=== PATIENT | female | born 1990 | race Caucasian/White ===

== ENCOUNTER → 2018-04-16 14:09 | Outpatient (CLI) | payer OTHER, SELFPAY ==
[2018-04-16 12:11] VITALS: BMI 27.3
[2018-04-16 14:26] LABS: Red Blood Cells-Urine 0 SEEN /hpf (0-5)
[2018-04-16 14:50] LABS: Color, Urine Yellow (Yellow); Glucose, Dipstick Normal (Normal); Ketone-Dipstick 5 mg/dl (Negative); Protein-Dipstick 15 mg/dl (Negative); Urine Clarity Cloudy (Clear)
[2018-04-16 14:51] LABS: Leukocyte Esterase-Dipstick 25 /ul (Negative); Nitrite-Dipstick Negative (Negative); Occult Blood-Urine Negative /ul (Negative); Urine Bilirubin Dipstick 1 mg/dL (Negative); Urine Urobilinogen Normal (Normal)
[2018-04-16 14:58] LABS: Bacteria 1+ /hpf (None Seen); Mucous, Urine 1+ /hpf (<or=2+); Squamous Epithelial Cells - UA 10-25 SEEN /hpf (5-10); White Blood Cells 0-5 SEEN /hpf (0-5)
== END ==
PROVIDERS: Family Provider Family Medicine; PCP Family Medicine; Referring Provider Physician Assistant; Visit Provider Physician Assistant
DX: R30.0 Dysuria (principal)
CPT/HCPCS: 81001; 87086; 87088

== ENCOUNTER → 2018-09-04 10:19 | Outpatient (CLI) | payer OTHER, SELFPAY ==
[2018-04-16 12:11] VITALS: BMI 27.3
[2018-09-04 12:38] LABS: Anion Gap 5 (5-15); BUN 8 mg/dL (7-18); BUN/Creat Ratio 12.5 RATIO (10-20); Calcium,Total 8.9 mg/dL (8.5-10.1); Chloride 109 mmol/L (98-107); Cholesterol 230 mg/dL (200); Creatinine, Serum 0.64 mg/dL (0.55-1.02); EST Glomerular Filtration Rate 117 mL/min (>60); Est Glom Filt Rate - Afr Amer 142 mL/min (>60); Glucose 69 mg/dL (74-106); High Density Lipoprotein 41 mg/dL; Potassium 4.3 mmol/L (3.5-5.1); Sodium Level 140 mmol/L (136-145); Thyroid Stim Hormone (TSH) 1.65 uIU/mL (0.358-3.74); Triglycerides 153 mg/dL; Very Low Density Lipoprotein 31 mg/dL (5-40)
== END ==
PROVIDERS: Family Provider Family Medicine; PCP Family Medicine; Referring Provider Family Medicine; Visit Provider Family Medicine
DX: Z00.00 Encounter for general adult medical examination without abnormal findings (principal)
CPT/HCPCS: 36415; 80048; 80061; 84443

== ENCOUNTER → 2019-01-14 16:21 | Outpatient (CLI) | payer OTHER, SELFPAY ==
[2018-04-16 12:11] VITALS: BMI 27.3
[2019-01-14 17:55] LABS: Anion Gap 9 (5-15); BUN 9 mg/dL (7-18); BUN/Creat Ratio 13.9 RATIO (10-20); Calcium,Total 8.9 mg/dL (8.5-10.1); Chloride 105 mmol/L (98-107); Cholesterol 236 mg/dL (200); Creatinine, Serum 0.65 mg/dL (0.55-1.02); EST Glomerular Filtration Rate 115 mL/min (>60); Est Glom Filt Rate - Afr Amer 139 mL/min (>60); Glucose 76 mg/dL (74-106); High Density Lipoprotein 43 mg/dL; Potassium 3.6 mmol/L (3.5-5.1); Sodium Level 138 mmol/L (136-145); Thyroid Stim Hormone (TSH) 3.53 uIU/mL (0.358-3.74); Triglycerides 140 mg/dL; Very Low Density Lipoprotein 28 mg/dL (5-40)
== END ==
PROVIDERS: Family Provider Family Medicine; PCP Family Medicine; Referring Provider Family Medicine; Visit Provider Family Medicine
DX: E78.5 Hyperlipidemia, unspecified (principal); F41.0 Panic disorder [episodic paroxysmal anxiety]
CPT/HCPCS: 36415; 80048; 80061; 84443

== ENCOUNTER → 2020-07-27 12:10 | Outpatient (CLI) | payer BC, SELFPAY ==
[2018-04-16 12:11] VITALS: BMI 27.3
--- NOTE | 2020-07-27 12:14 | RAD_ITS ---
STUDY: X-RAY - RIGHT FOOT CLINICAL: Female, 30 years old. No injury, foot pain on top and medial, also by the heel TECHNIQUE: 3 view(s) of the foot. COMPARISON: None. FINDINGS: Normal talus, calcaneus, and tarsal bones. Normal visualized subtalar, talonavicular, calcaneocuboid, tarsal and tarsometatarsal articulations. Normal metatarsi. Normal metatarsophalangeal joint of the great toe. Normal tibial and fibular sesamoid bones. Normal interphalangeal joint of the great toe. Normal phalanges of the great toe. Normal second through fifth metatarsophalangeal joints. Normal interphalangeal joints and phalanges of the lesser toes. Mild degree of dorsal soft tissue swelling. RAD/Foot min 3 Views IMPRESSION: Mild degree of dorsal soft tissue swelling. Electronically Signed: Ye Church MD at 13:14 EDT , Service support ,
== END ==
LOC: MTRAD 12:13
PROVIDERS: PCP Family Medicine; Referring Provider Family Medicine; Visit Provider Family Medicine
DX: M79.671 Pain in right foot (principal)
CPT/HCPCS: 73630

== ENCOUNTER → 2021-04-29 07:00 | Outpatient (CLI) | payer BC, SELFPAY | PROVIDERS: PCP Family Medicine; Referring Provider Family Medicine; Visit Provider Family Medicine | DX: Z20.822 Contact with and (suspected) exposure to COVID-19 (principal) | CPT/HCPCS: 87635; U0005; U0003 ==

== ENCOUNTER 2021-06-09 15:22 | Outpatient (CLI) | payer BC, SELFPAY | END 2021-06-09 23:59 | disposition short-term general hospital (02) | LOC: LABSPEC 06-10 09:33 | PROVIDERS: PCP Family Medicine; Visit Provider Family Medicine | DX: Z20.822 Contact with and (suspected) exposure to COVID-19 (principal) | CPT/HCPCS: 87635; U0003; U0005 ==

== ENCOUNTER 2021-06-28 08:49 | Outpatient (CLI) | payer BC, SELFPAY ==
[2021-06-28 12:35] LABS: Cholesterol 258 mg/dL (200); High Density Lipoprotein 44 mg/dL; Triglycerides 155 mg/dL; Very Low Density Lipoprotein 31 mg/dL (5-40)
== END 2021-06-28 23:59 | disposition home or self-care (01) ==
LOC: MFPLAB 08:50
PROVIDERS: PCP Family Medicine; Visit Provider Family Medicine
DX: E78.5 Hyperlipidemia, unspecified (principal)
CPT/HCPCS: 36415; 80061

== ENCOUNTER → 2021-10-02 | Outpatient (CLI) | payer BC, SELFPAY ==
[2021-10-02 10:46] LABS: Cholesterol 166 mg/dL (200); High Density Lipoprotein 42 mg/dL; Triglycerides 130 mg/dL; Very Low Density Lipoprotein 26 mg/dL (5-40)
== END | disposition home or self-care (01) ==
LOC: LAB 09:39
PROVIDERS: PCP Family Medicine; Visit Provider Family Medicine
DX: E78.5 Hyperlipidemia, unspecified (principal)
CPT/HCPCS: 36415; 80061

== ENCOUNTER → 2022-05-03 | Outpatient (CLI) | payer BC, SELFPAY ==
--- NOTE | 2022-05-03 11:14 | RAD_ITS ---
STUDY: X-RAY - LEFT ANKLE REASON FOR EXAM: Female, 31 years old. Pain above lateral malleolus. TECHNIQUE: 3 view(s) of the ankle. COMPARISON: None. FINDINGS: Normal visualized distal tibia and fibula. Normal medial and lateral malleoli. Normal tibiotalar articulation and ankle mortise. Normal visualized talus and calcaneus. The visualized subtalar, talonavicular, calcaneocuboid and tarsal articulations are normal. The soft tissue structures are unremarkable. RAD/Ankle min 3 Views IMPRESSION: Normal x-ray examination of the ankle. Electronically Signed: Jose Alfredo Slater, at 11:43 EST ,
== END | disposition home or self-care (01) ==
LOC: MTRAD 11:09
PROVIDERS: PCP Family Medicine; Referring Provider Family Medicine; Visit Provider Family Medicine
DX: M25.572 Pain in left ankle and joints of left foot (principal)
CPT/HCPCS: 73610

== ENCOUNTER → 2022-05-19 | Outpatient (CLI) | payer BC, SELFPAY ==
[2022-05-19 16:20] LABS: Vitamin D,25 Hydroxy 23.9 ng/mL
[2022-05-19 17:04] LABS: Anion Gap 11 (5-15); BUN 9 mg/dL (7-18); BUN/Creat Ratio 14.9 RATIO (10-20); Calcium,Total 9.2 mg/dL (8.5-10.1); Chloride 105 mmol/L (98-107); EST Glomerular Filtration Rate 122 mL/min (>60); Est Glom Filt Rate - Afr Amer 147 mL/min (>60); Glucose 72 mg/dL (74-106); Sodium Level 138 mmol/L (136-145); Thyroid Stim Hormone (TSH) 2.62 uIU/mL (0.358-3.74)
== END | disposition home or self-care (01) ==
LOC: MFPLAB 12:02
PROVIDERS: PCP Family Medicine; Visit Provider Family Medicine
DX: Z00.00 Encounter for general adult medical examination without abnormal findings (principal)
CPT/HCPCS: 36415; 80048; 82306; 84443

== ENCOUNTER → 2022-06-13 | Outpatient (CLI) | payer BC, SELFPAY ==
[2022-06-20 17:52] LABS: HPV HC, High Risk Negative
== END | disposition home or self-care (01) ==
PROVIDERS: PCP Family Medicine; Visit Provider Nurse Practitioner Family
DX: Z12.4 Encounter for screening for malignant neoplasm of cervix (principal)
CPT/HCPCS: 87624; 88175; G0145

== ENCOUNTER → 2022-08-24 | Outpatient (CLI) | payer BC, SELFPAY ==
[2022-08-24 12:32] LABS: hCG Titer Quant., Serum 491 mIU/mL (1-3)
== END | disposition home or self-care (01) ==
PROVIDERS: PCP Family Medicine; Referring Provider Obstetrics & Gynecology; Visit Provider Obstetrics & Gynecology
DX: N91.2 Amenorrhea, unspecified (principal)
CPT/HCPCS: 36415; 84702; 86850; 86900; 86901

== ENCOUNTER → 2022-08-26 | Outpatient (CLI) | payer BC, SELFPAY ==
[2022-08-26 14:13] LABS: hCG Titer Quant., Serum 709 mIU/mL (1-3)
== END | disposition home or self-care (01) ==
LOC: LAB 12:36
PROVIDERS: PCP Family Medicine; Referring Provider Obstetrics & Gynecology; Visit Provider Obstetrics & Gynecology
DX: N91.2 Amenorrhea, unspecified (principal)
CPT/HCPCS: 36415; 84702

== ENCOUNTER → 2022-08-29 | Outpatient (CLI) | payer BC, SELFPAY ==
[2022-08-29 13:18] LABS: hCG Titer Quant., Serum 1532 mIU/mL (1-3)
== END | disposition home or self-care (01) ==
LOC: LAB 12:04
PROVIDERS: PCP Family Medicine; Referring Provider Obstetrics & Gynecology; Visit Provider Obstetrics & Gynecology
DX: N91.2 Amenorrhea, unspecified (principal)
CPT/HCPCS: 36415; 84702

== ENCOUNTER → 2022-08-31 | Outpatient (CLI) | payer BC, SELFPAY ==
[2022-08-31 13:35] LABS: hCG Titer Quant., Serum 2174 mIU/mL (1-3)
== END | disposition home or self-care (01) ==
LOC: LAB 12:06
PROVIDERS: PCP Family Medicine; Referring Provider Obstetrics & Gynecology; Visit Provider Obstetrics & Gynecology
DX: O02.0 Blighted ovum and nonhydatidiform mole (principal)
CPT/HCPCS: 36415; 84702

== ENCOUNTER → 2022-09-07 | Outpatient (CLI) | payer BC, SELFPAY ==
--- NOTE | 2022-09-07 10:21 | US_ITS ---
STUDY: FIRST TRIMESTER OBSTETRICAL ULTRASOUND REASON FOR EXAM: Female, 32 years old viability LMP: July 18, 2022. TECHNIQUE: Transvaginal TECHNICAL QUALITY: Adequate. PRIOR ULTRASOUND: None. FINDINGS: There is visualization of a single gestational sac in a normal intrauterine position. The mean sac diameter (MSD) measures 1.3 cm, indicating an estimated gestational age (EGA) of 6 weeks, 1 days. The gestational sac shape is within normal limits. There is a visualized yolk sac. The yolk sac measures 3 mm. The placenta is non-visualized. There is visualization of a live embryo. The crown-rump length (CRL) measures 8 mm, indicating an estimated gestational age (EGA) of 6 weeks, 6 days. There is demonstrated cardiac activity with a heart rate of 135 bpm. The estimated gestation age (EGA) by LMP is 7 weeks, 2 days. The estimated date of delivery (ED) by LMP is April 24, 2023. The estimated gestation age (EGA) by US is 6 weeks, 4 days. The estimated date of delivery (ED) by US is April 29, 2023. The uterus measures 7.4 cm x 3.9 cm x 3.3 cm. There is no demonstrated uterine fibroid. The cervix is closed. Small amount of fluid is seen in the endometrial canal. The right ovary measures 5.1 cm x 4.7 cm x 4.8 cm. There is a 4.8 cm x 4.6 x 4.6 cm ovarian cyst. There is no visualized right adnexal mass or complex lesion. The left ovary measures 3.1 cm x 1.8 cm x 2 cm. There is no left ovarian cyst. There is no visualized left adnexal mass or complex lesion. There is no fluid in the cul de sac. US/Transvaginal w/Preg US IMPRESSION: Single live uterine gestation with a mean gestational age of 6 weeks and 4 days. Right ovarian cyst. Electronically Signed: Ye Church MD at 14:59 EDT ,
== END | disposition home or self-care (01) ==
PROVIDERS: PCP Family Medicine; Referring Provider Obstetrics & Gynecology; Visit Provider Obstetrics & Gynecology
DX: O20.0 Threatened abortion (principal)
CPT/HCPCS: 76817

== ENCOUNTER → 2022-10-04 | Outpatient (CLI) | payer BC, SELFPAY ==
[2022-10-04 13:04] LABS: Absolute Lymphocyte Count 2.61 X10^3/uL (0.83-4.51); Absolute Neutrophil Count 7.4 X10^3/uL (2.0-7.7); Basophil# 0.06 X10^3/uL; Basophil% 0.5 % (0-1); Eosinophil# 0.35 X10^3/uL; Eosinophils% 3.1 % (0-5); Lymphocyte # 2.61 X10^3/ul (0.83-4.51); Lymphocyte % 23.2 % (19-41); Mean Corp Hgb Conc 33.3 g/dL (32-36); Mean Corpuscular Hgb 29.9 pg (27.0-32.0); Mean Corpuscular Volume 89.7 fL (81-99); Mean Platelet Vol. 10.5 fl (6.2-12.0); Monocyte# 0.77 X10^3/uL; Monocyte% 6.8 % (0-10); NRBC Flagged by Analyzer 0 % (0-5); Neutrophil # 7.43 X10^3/uL (2.7-7.7); Platelet Count 333 K/mm3 (150-450); RBC Distribution Width CV 13.5 % (11.6-14.6); RBC Distribution Width SD 44.2 fl (35.1-43.9); Red Blood Count 4.35 M/mm3 (4.2-5.4); White Blood Count 11.3 K/mm3 (4.4-11.0)
[2022-10-04 13:20] LABS: NATERA MAILED SPECIMEN
[2022-10-04 14:03] LABS: HIV - WCH Non-Reactive (Nonreactive); Hepatitis B Surface Antigen Non-Reactive (Nonreactive); Hepatitis C Antibody Non-Reactive (Nonreactive); Rubella IgG Reactive (Nonreactive); Syphilis Antibodies Non-reactive
[2022-10-04 17:04] LABS: Chlamydia Trachomatis by PCR Negative (Negative); Neisserai gonorrhoeae by PCR Negative (Negative); Probe Check PASS; Sample Adequacy Control PASS; Specimen Processing Control PASS
== END | disposition home or self-care (01) ==
LOC: LAB 12:18
PROVIDERS: PCP Family Medicine; Visit Provider Advanced Practice Midwife
DX: O09.90 Supervision of high risk pregnancy, unspecified, unspecified trimester (principal); Z3A.11 11 weeks gestation of pregnancy
CPT/HCPCS: 36415; 85025; 86703; 86762; 86780; 86803; 86850; 86900; 86901; 87086; 87088; 87340; 87491; 87591

== ENCOUNTER → 2023-01-06 | Outpatient (CLI) | payer BC, SELFPAY ==
[2023-01-10 22:06] LABS: Chlamydia By Nucleic Acid AMP Negative (Negative); Gonococcus By Nucleic Acid AMP Negative (Negative)
[2023-01-13 14:09] LABS: HPV APTIMA, High Risk Negative (Negative)
== END | disposition home or self-care (01) ==
LOC: LABSPEC 17:07
PROVIDERS: Referring Provider Registered Nurse; Visit Provider Registered Nurse
DX: Z34.90 Encounter for supervision of normal pregnancy, unspecified, unspecified trimester (principal); N89.8 Other specified noninflammatory disorders of vagina
CPT/HCPCS: 87070; 87086; 87088; 87205; 87491; 87591; 87624; 88175; G0145

== ENCOUNTER → 2023-01-21 | Outpatient (CLI) | payer BC, SELFPAY ==
[2023-01-21 11:24] LABS: Absolute Lymphocyte Count 2.02 X10^3/uL (0.83-4.51); Absolute Neutrophil Count 7.8 X10^3/uL (2.0-7.7); Basophil# 0.03 X10^3/uL; Basophil% 0.3 % (0-1); Eosinophils% 1.9 % (0-5); Hematocrit 34.2 % (37-47); Hemoglobin 11.6 g/dL (12.0-15.0); Lymphocyte # 2.02 X10^3/ul (0.83-4.51); Lymphocyte % 19.1 % (19-41); Mean Corp Hgb Conc 33.9 g/dL (32-36); Mean Corpuscular Hgb 30.8 pg (27.0-32.0); Mean Corpuscular Volume 90.7 fL (81-99); Mean Platelet Vol. 10.1 fl (6.2-12.0); Monocyte# 0.47 X10^3/uL; Monocyte% 4.4 % (0-10); NRBC Flagged by Analyzer 0 % (0-5); Neutrophil # 7.82 X10^3/uL (2.7-7.7); Neutrophil % 73.9 % (47-70); Platelet Count 300 K/mm3 (150-450); RBC Distribution Width CV 14.1 % (11.6-14.6); RBC Distribution Width SD 45.8 fl (35.1-43.9); Red Blood Count 3.77 M/mm3 (4.2-5.4); White Blood Count 10.6 K/mm3 (4.4-11.0)
[2023-01-21 12:22] LABS: Glucose Challenge Gest 1H 50g 149 mg/dL (70-140)
[2023-01-23 09:22] LABS: HIV - WCH Non-Reactive (Nonreactive); Syphilis Antibodies Non-reactive
== END | disposition home or self-care (01) ==
LOC: LAB 10:37
PROVIDERS: Referring Provider Obstetrics & Gynecology; Visit Provider Obstetrics & Gynecology
DX: O09.90 Supervision of high risk pregnancy, unspecified, unspecified trimester (principal); Z13.1 Encounter for screening for diabetes mellitus; Z3A.00 Weeks of gestation of pregnancy not specified
CPT/HCPCS: 36415; 82950; 85025; 86703; 86780

== ENCOUNTER → 2023-01-30 | Outpatient (CLI) | payer BC, SELFPAY ==
[2023-01-30 07:38] LABS: Glucose GTT-Gestation. Fasting 85 mg/dL (<105)
[2023-01-30 08:27] LABS: Glucose GTT-Gestational 1 Hr 162 mg/dL (<190)
[2023-01-30 09:40] LABS: Glucose GTT-Gestational 2 Hr 142 mg/dL (<165)
[2023-01-30 11:16] LABS: Glucose GTT-Gestational 3 Hr 127 L (<145)
== END | disposition home or self-care (01) ==
LOC: LAB 06:56
PROVIDERS: PCP Family Medicine; Referring Provider Nurse Practitioner Women's Health; Visit Provider Nurse Practitioner Women's Health
DX: Z13.1 Encounter for screening for diabetes mellitus (principal)
CPT/HCPCS: 36415; 82951; 82952

== ENCOUNTER → 2023-03-24 | Outpatient (CLI) | payer BC, SELFPAY ==
--- NOTE | 2023-03-24 09:53 | US_ITS ---
STUDY: SECOND AND THIRD TRIMESTER OBSTETRICAL ULTRASOUND - LIMITED REASON FOR EXAM: Female, 32 years old Breeched fetus LMP: July 18, 2022. PRIOR ULTRASOUND: Comparison is made with prior study of September 07, 2022. TECHNIQUE: Transabdominal TECHNICAL QUALITY: Adequate. FINDINGS: There is a single intrauterine fetus. The fetus is in a breech presentation. There is demonstrated cardiac activity with a heart rate of 148 bpm. There is a normal amniotic fluid volume. The largest amniotic fluid pocket measures 4.1 cm. The amniotic fluid index (KERRI) is 10.2 cm. The placenta is anterior and lateral in location and is not low lying. There are Grade 2 placental changes. The cervix measures 3.65 cm cm in length. BIOMETRY: BPD: 8.76 cm: 35 weeks, 3 days HC: 31.43 cm: 35 weeks, 2 days AC: 29.35 cm: 33 weeks, 2 days FL: 6.73 cm: 34 weeks, 4 days Age by LMP: 34 weeks, 4 days. ED by LMP: April 24, 2023. age by prior US: 34 weeks, 4 days. ED by prior US: April 29, 2023. age by current US: 34 weeks, 5 days. ED by current US: April 30, 2023. Estimated weight: 2366 grams, +/- 354 grams, 16.3 percentile. US/OB Limited With Biometrics IMPRESSION: Single live intrauterine gestation with a mean gestational age of 34 weeks and 4 days. The measurements obtained today fall within the normal expected range. Electronically Signed: Ye Church MD at 15:20 EST ,
== END | disposition home or self-care (01) ==
LOC: US 09:53
PROVIDERS: PCP Family Medicine; Referring Provider Obstetrics & Gynecology; Visit Provider Obstetrics & Gynecology
DX: Z34.90 Encounter for supervision of normal pregnancy, unspecified, unspecified trimester (principal)
CPT/HCPCS: 76816

== ENCOUNTER 2023-03-26 11:40 | Outpatient (CLI) | payer BC, SELFPAY ==
[2023-03-26 11:59] VITALS: BP 140/90; PULSE 86
[2023-03-26 12:05] VITALS: BMI 33.5
[2023-03-26 12:14] VITALS: BP 137/85; PULSE 82
[2023-03-26 12:45] VITALS: BP 140/80; PULSE 73
--- NOTE | 2023-03-26 12:52 | OB.TRI.HP_ITS ---
HPI - General HPI Narrative KRISTA CHIRINOS, is a 32 F who presents at 35.6 for decreased movement since this AM. no vb/ctx/lof. since presenting to is now feeling more active movement. pt with BP elevations on admission to triage. denies headaches, visual changes/floater/flashing lights, ruq pain. breech presentation of ultrasound 03/24/2023 Maternal Data Information ED Calculator Estimated Delivery Date Method Current WG Current Estimate 04/24/23 LMP (Certain) 35w 6d PFSH PFSH Medical History Amenorrhea Asthma Vaginal discharge Home Medications cholecalciferol (vitamin D3) 50 mcg (2,000 unit) capsule 50 mcg PO DAILY 09/01/22 [History Last Taken 03/25/23 21:00] docosahexaenoic acid 200 mg capsule ( DHA) mg PO 09/01/22 [History Last Taken Unknown] famotidine 20 mg tablet (Pepcid) 20 mg PO DAILY #30 tabs 01/07/23 [Rx Last Taken 03/26/23 09:00] sertraline 50 mg tablet (Zoloft) 75 mg (1.5 x 50 mg) PO DAILY 90 days #135 tabs 03/01/23 [Rx Last Taken 03/25/23 21:00] Allergy/AdvReac Type Severity Reaction Status Date / Time caffeine Allergy Hives Verified 03/13/23 09:58 amoxicillin trihydrate AdvReac Unknown Verified 03/13/23 09:58 [From Augmentin] potassium clavulanate AdvReac Unknown Verified 03/13/23 09:58 [From Augmentin] Family History Mother Breast cancer, Onset Age: 60 Graves disease Hypertension Lung cancer Grandmother Breast cancer, Onset Age: 60 Congestive heart failure Grandfather Congestive heart failure Kidney disease Diabetes Surgical History History of tonsillectomy and adenoidectomy S/P tympanostomy tube placement Social History adopted: No household members: spouse current occupational status: employed current occupation: [employer] pets and animals: Yes ( does litter box) pets and animals: cat(s) history of recent travel: No sexually active: Yes Smoking Status: Never smoker second hand exposure: No alcohol intake: current details: social- not while substance use type: does not use caffeine: Yes Type: carbonated beverages Number of servings: 1 and tea Number of servings: 1 what type of physical activity do you participate in: walking frequency: 1-2 times per week seatbelt use: always do you feel safe at home: Yes additional social history: -Eros History 1 Elective abortions Hx Para Spontaneous abortions Hx # Term Pregnancies Ectopic pregnancies Hx # Pregnancies Multiple births # of living children Visit Details Expected Delivery Route/Plan Labor Preferences- CB/BF classes: [] labor support person: Eros -does not want to cut cord or see blood. She does not want anyone to be there but Eros!. labor intervention preferences: [] pain management options preferred: epidural cut cord/dad catch: dad says NO : no, needs to go back on cholesterol meds and can not breast feed. PP control planned: [] discussed possible routes of delivery and associated risks: [] special requests: [] Plans Covid status: [] Flu vaccine: obtained Tdap vaccine: obtained Rhogam: na LARC form signed: [] movement and labor precautions reviewed. Problem list reviewed and updated with the most current plan of care details and appropriate orders placed. Relevant counseling for the gestational age provided. Continue routine care and follow up unless otherwise noted in visit notes/problem list details OB Flowsheet Initial Weight: Not Recorded Date -?-?-?-?-?--?-?-?-?-?-?-?- EGA Weight BP Urine Prot -?-?-?-?-?-?-?-?-?-?-?-?- Glucose FHR FuHt Pres Dilation -?-?-?-?-?-?-?-?-?-?-?-?- Effaced St Visit Note 09/21/22 -?-?-?-?-?-?-?-?-?-?-?-?- 9w 2d 184 lb 2 oz 118/71 118/71 Negative -?-?-?-?--?-?-?-?-?-?-?-?- Negative 160 -?-?-?-?-?-?-?-?-?-?-?-?- LC spotting x1 y esterday after BM. +FHT today. bleeding precautions provided. LC- ultrasound with CRL c/w LMP. ED 04/21/2023. spotting x1 yesterday after BM. +FHT today. bleeding precautions provided. 10/04/22 -?-?-?-?-?-?-?-?-?-?-?-?- 11w 1d 181 lb 6 oz -?-?-?-?-?-?--?-?-?-?-?-?- 160 -?-?-?-?-?-?-?-?-?-?-?-?- kw- no cramping/ vb. desires NIPT-ordered today kw- no cramping/vb. 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 Br US to confirm FHT. 11/15/22 -?-?-?-?-?-?-?-?-?-?-?-?- 17w 1d 180 lb 8 oz 126/74 -?-?-?-?-?-?-?-?-?-?-?-?- 157 -?-?-?-?-?-?-?-?-?-?-?-?- -No VB but luciano e mucous discharge. worked in due to very anxious as she has been weaning down on prozac and wants to try zoloft. New Rx sent. Enc counseling. 12/16/22 -?-?-?-?-?-?-?-?-?-?-?-?- 21w 4d 183 lb 8 oz 112/81 Nega tive -?-?-?-?-?-?-?-?-?-?-?-?- Negative 140 -?-?-?-?-?-?-?-?-?-?-?-?- JV- normal anato my. no complaints. labor preferences discussed. 01/06/23 -?-?-?-?-?-?-?-?-?-?-?-?- 24w 4d 184 lb 4 oz 132/70 Nega tive -?-?-?-?-?-?-?-?-?-?-?-?- Negative 135 0 -?-?-?-?-?-?-?-?-?-?-?-?- LC- pt c/o back pain and cramping. speculum exam demonstrated closed but excoriated ectropion cervix with copious discharge. consulted with ROCIO who also examined pt. genital swab, gc/ct and repeat pap collected today. +FM. 02/03/23 -?-?-?-?-?-?-?-?-?-?-?-?- 28w 4d 187 lb 4 oz 126/72 Nega tive -?-?-?-?-?-?-?-?-?-?-?-?- Negative 140 -?-?-?-?-?-?-?-?-?-?-?-?- LC- no vb/ctx/lo f. good fm. tdap/flu and larc completed today.no complaints. 02/16/23 -?-?-?-?-?-?-?-?-?-?-?-?- 30w 3d 188 lb 4 oz 124/82 Nega tive -?-?-?-?-?-?-?-?-?-?-?-?- Negative 153 -?-?-?-?-?-?-?-?-?-?-?-?- MH-No VB, LOF. G ood FM. No CTX 03/01/23 -?-?-?-?-?-?-?-?-?-?-?-?- 32w 2d 192 lb 2 oz 129/89 Trac e -?-?-?-?-?-?-?-?-?-?-?-?- Negative 154 31 Breech -?-?-?-?-?-?-?-?-?-?-?-?- JV- no lof, vagi nal bleeding, or dec fm. some minor cramping 03/13/23 -?-?-?-?-?-?-?-?-?-?-?-?- 34w 0d 193 lb 4 oz 129/83 Nega tive -?-?-?-?-?-?-?-?-?-?-?-?- Negative 150 34 -?-?-?-?-?-?-?-?-?-?-?-?- SM- no vb lof go od fm n oregular ctx, discussed ECV vs primary section. possibly cephalic on exma today, ordered formal scan Physical Exam Const alert, oriented x3 and no apparent distress Resp normal respiratory effort, normal air movement, no retractions and no use of accessory muscles Cardio regular rate and regular rhythm GI soft to palpation and non-tender Inspection: Palpation: soft Rectal Exam: deferred no CVA tenderness and external exam normal Bimanual Exam - Vag & Uterus: uterus non-tender and other gravid uterus, normal for gestational age OB / External & Speculum: Negative for herpetic lesions Manual OB Exam: estimated gestational size appropriate Amniotic Fluid: no amniotic fluid noted Extremity normal to inspection and full ROM Neuro Motor Exam: strength 5/5 throughout and muscle tone normal throughout Deep Tendon Reflexes: Rt Patellar (L4): 2+ and Lt Patellar (L4): 2+ NST FHR Rate Baby A Baseline: 140 Variability:: Moderate Accelerations:: 15 x 15 Decelerations:: None NST Reactive:: Yes FHR Category:: Category I Uterine Activity:: no uterine ctx Assessment & Plan (1) Elevated BP without diagnosis of hypertension: COMMENT: PEC labs sent. BP 140s/80-90s, denies ruiz/visual changes/ruq pain P:C 370 PLAN: c/s at 37 weeks. reviewed and discussed with Altaf Almaguer agrees with outpt nst/aurea and c/s at 37 weeks (2) Breech presentation: COMMENT: CS for presentation. (3) Mild pre-eclampsia: COMMENT: 2x weekly NST, weekly labs. PEC precautions provided. cs at 37 weeks. PLAN: Plan Patient presents for triage evaluation secondary to decreased movement, elevated BPs without s/sx of PEC. labs sent for rule out, resulted with elevated P:C ratio. pt remains breech presentation. FHT: Moderate variability reactive no decelerations category I tracing [place]: no Contractions Assessment and plan: Reactive NST, reassuring maternal and status patient discharged to home to follow-up in office on monday . See problem list details for additional plan information. Charges/Coding Procedures Urinary/Genital [id number]: 80027-34 non-stress test Interp Multi Select Codes Visit Charges Office Visit/Consults: 46668 OV L3 Est Urinary/Genital Urinary/Genital CPT Codes: 60635-68 non-stress test Interp
[2023-03-26 13:18] LABS: Hematocrit 35.7 % (37-47); Hemoglobin 11.5 g/dL (12.0-15.0); Mean Corp Hgb Conc 32.2 g/dL (32-36); Mean Corpuscular Hgb 27.9 pg (27.0-32.0); Mean Corpuscular Volume 86.7 fL (81-99); Mean Platelet Vol. 10.9 fl (6.2-12.0); Platelet Count 281 K/mm3 (150-450); RBC Distribution Width CV 13.6 % (11.6-14.6); RBC Distribution Width SD 42.2 fl (35.1-43.9); Red Blood Count 4.12 M/mm3 (4.2-5.4); White Blood Count 11.2 K/mm3 (4.4-11.0)
[2023-03-26 13:34] LABS: Protein, Urine (Random) 62.1 mg/dL (<11.9); Protein:Creat Ratio 370 mg/g CRE (0-200)
[2023-03-26 13:38] LABS: AST(SGOT) 14 U/L (15-37); Alanine Aminotransfer ALT/SGPT 14 U/L (13-56); Creatinine, Serum 0.48 mg/dL (0.55-1.02); EST Glomerular Filtration Rate 157 mL/min (>60); Est Glom Filt Rate - Afr Amer 189 mL/min (>60); Estimated Creatinine Clearance 143.95 ml/min; Uric Acid 5.1 mg/dL (2.6-6.0)
== END 2023-03-26 14:40 | disposition home or self-care (01) ==
LOC: WPOUT 11:46 → WP 11:47
PROVIDERS: PCP Family Medicine; Visit Provider Registered Nurse
DX: O15.03 Eclampsia complicating pregnancy, third trimester (principal); O32.1XX0 Maternal care for breech presentation, not applicable or unspecified; O36.8130 Decreased fetal movements, third trimester, not applicable or unspecified; O77.9 Labor and delivery complicated by fetal stress, unspecified; Z3A.35 35 weeks gestation of pregnancy
CPT/HCPCS: 36415; 59050; 82565; 82570; 84156; 84450; 84460; 84550; 85027; 99221; G0378

== ENCOUNTER 2023-03-28 08:40 | Inpatient (IN) | payer BC, SELFPAY ==
[2023-03-28] VITALS (15 sets, daily range): BP systolic 110–141; BP diastolic 60–87; PULSE 82–101; RESP 14–18; TEMP 36.3–36.9; O2SAT 94–100; BMI 33.3
[2023-03-28] MEDS: Acetaminophen 500 MG Tablet 1000 MG PO ×3 (09:48→22:11)
[2023-03-28] MEDS: Lactated Ringers 1,000 ML 999 ML IV (09:50)
--- NOTE | 2023-03-28 10:05 | HP.PCM.OB_ITS ---
HPI - General General Date of Admission: 03/28/23 HPI Narrative KRISTA CHIRINOS, is a 32 F who presents for LTCS for breech. she had an ultrasound today that showed an aurea of 3 cm Maternal Data Information ED Calculator Estimated Delivery Date Method Current WG Current Estimate 04/24/23 LMP (Certain) 36w 1d PFSH PFSH Medical History (Updated 03/28/23 @ 10:[address] Lily Duran MD) Amenorrhea Anxiety Asthma Depression Pre-eclampsia Vaginal discharge Home Medications cholecalciferol (vitamin D3) 50 mcg (2,000 unit) capsule 50 mcg PO DAILY 09/01/22 [History Last Taken 03/27/23] docosahexaenoic acid 200 mg capsule ( DHA) mg PO 09/01/22 [History Last Taken 03/27/23] famotidine 20 mg tablet (Pepcid) 20 mg PO DAILY reflux #30 tabs 01/07/23 [Rx Last Taken 03/27/23] sertraline 50 mg tablet (Zoloft) 75 mg (1.5 x 50 mg) PO DAILY anxiety 90 days #135 tabs 03/01/23 [Rx Last Taken 03/27/23] Allergy/AdvReac Type Severity Reaction Status Date / Time caffeine Allergy Hives Verified 03/28/23 09:27 amoxicillin trihydrate AdvReac Unknown Unknown Verified 03/28/23 09:27 [From Augmentin] potassium clavulanate AdvReac Unknown Verified 03/28/23 09:27 [From Augmentin] Family History Mother Breast cancer, Onset Age: 60 Graves disease Hypertension Lung cancer Grandmother Breast cancer, Onset Age: 60 Congestive heart failure Grandfather Congestive heart failure Kidney disease Diabetes Surgical History History of tonsillectomy and adenoidectomy S/P tympanostomy tube placement Social History adopted: No household members: spouse current occupational status: employed current occupation: [employer] pets and animals: Yes ( does litter box) pets and animals: cat(s) history of recent travel: No sexually active: Yes Smoking Status: Never smoker second hand exposure: No alcohol intake: current details: social- not while substance use type: does not use caffeine: Yes Type: carbonated beverages Number of servings: 1 and tea Number of servings: 1 what type of physical activity do you participate in: walking frequency: 1-2 times per week seatbelt use: always do you feel safe at home: Yes additional social history: -Eros History 1 Elective abortions Hx Para 0 Spontaneous abortions Hx # Term Pregnancies Ectopic pregnancies Hx # Pregnancies Multiple births # of living children Visit Details Expected Delivery Route/Plan Labor Preferences- CB/BF classes: [] labor support person: Eros -does not want to cut cord or see blood. She does not want anyone to be there but Eros!. labor intervention preferences: [] pain management options preferred: epidural cut cord/dad catch: dad says NO : no, needs to go back on cholesterol meds and can not breast feed. PP control planned: [] discussed possible routes of delivery and associated risks: [] special requests: [] Plans Covid status: [] Flu vaccine: obtained Tdap vaccine: obtained Rhogam: na LARC form signed: [] movement and labor precautions reviewed. Problem list reviewed and updated with the most current plan of care details and appropriate orders placed. Relevant counseling for the gestational age provided. Continue routine care and follow up unless otherwise noted in visit notes/problem list details OB Flowsheet Initial Weight: Not Recorded Date -?-?-?-?-?-?-?-?-?-?-?-?- EGA Weight BP Urine Prot -?-?-?-?-?-?-?-?-?-?-?-?- Glucose FHR FuHt Pres Dilation -?-?-?-?-?-?-?-?-?-?-?-?- Effaced St Visit Note 09/21/22 -?-?-?-?-?-?-?-?-?-?-?-?- 9w 2d 184 lb 2 oz 118/71 118/71 Negative -?-?-?-?-?-?-?-?-?-?-?-?- Negative 160 -?--?-?-?-?-?-?-?-?-?-?-?- LC spotting x1 y esterday after BM. +FHT today. bleeding precautions provided. LC- ultrasound with CRL c/w LMP. ED 04/21/2023. spotting x1 yesterday after BM. +FHT today. bleeding precautions provided. 10/04/22 -?-?-?-?-?-?-?-?-?-?-?-?- 11w 1d 181 lb 6 oz -?-?-?-?-?-?-?-?-?-?-?-?- 160 -?-?-?-?-?-?-?-?-?-?-?-?- kw- no cramping/ vb. desires NIPT-ordered today kw- no cramping/vb. 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 Br US to confirm FHT. 11/15/22 -?-?-?-?-?-?-?-?-?-?-?-?- 17w 1d 180 lb 8 oz 126/74 -?-?-?-?-?-?-?-?-?-?-?-?- 157 -?-?-?-?-?-?-?-?-?-?-?-?- MH-No VB but luciano e mucous discharge. worked in due to very anxious as she has been weaning down on prozac and wants to try zoloft. New Rx sent. Enc counseling. 12/16/22 -?-?-?-?-?-?-?-?-?-?-?-?- 21w 4d 183 lb 8 oz 112/81 Nega tive -?-?-?-?-?-?-?-?-?-?-?-?- Negative 140 -?-?-?-?-?-?-?-?-?-?-?-?- JV- normal anato my. no complaints. labor preferences discussed. 01/06/23 -?-?-?-?-?-?-?-?-?-?-?-?- 24w 4d 184 lb 4 oz 132/70 Nega tive -?-?-?-?-?-?-?-?-?-?-?-?- Negative 135 0 -?-?-?-?-?-?-?-?--?-?-?-?- LC- pt c/o back pain and cramping. speculum exam demonstrated closed but excoriated ectropion cervix with copious discharge. consulted with ROCIO who also examined pt. genital swab, gc/ct and repeat pap collected today. +FM. 02/03/23 -?-?-?-?-?-?-?-?-?-?-?-?- 28w 4d 187 lb 4 oz 126/72 Nega tive -?-?-?-?-?-?-?-?-?-?-?-?- Negative 140 -?-?-?-?-?-?-?-?-?-?-?-?- LC- no vb/ctx/lo f. good fm. tdap/flu and larc completed today.no complaints. 02/16/23 -?-?-?-?-?-?-?-?-?-?-?-?- 30w 3d 188 lb 4 oz 124/82 Nega tive -?-?-?-?-?-?-?-?-?-?-?-?- Negative 153 -?-?-?-?-?-?-?-?-?-?-?-?- MH-No VB, LOF. G ood FM. No CTX 03/01/23 -?-?-?-?-?-?-?-?-?-?-?-?- 32w 2d 192 lb 2 oz 129/89 Trac e -?-?-?-?-?-?-?-?-?-?-?-?- Negative 154 31 Breech -?-?-?-?-?-?-?-?-?-?-?-?- JV- no lof, vagi nal bleeding, or dec fm. some minor cramping 03/13/23 -?-?-?-?-?-?-?-?-?-?-?-?- 34w 0d 193 lb 4 oz 129/83 Nega tive -?-?-?-?-?-?-?-?-?-?-?-?- Negative 150 34 -?-?-?-?-?-?-?-?-?-?-?-?- SM- no vb lof go od fm n oregular ctx, discussed ECV vs primary section. possibly cephalic on exma today, ordered formal scan 03/28/23 -?-?-?-?-?-?-?-?-?-?-?-?- 36w 1d 194 lb 8 oz 124/74 -?-?-?-?-?-?-?-?-?-?-?-?- -?-?-?-?-?-?-?-?-?-?-?-?- SM- no vb lof go od fm on US today still breech and aurea 3 cm, will proceed with LTCS. NST FHR Rate Baby A Baseline: 130 Variability:: Moderate Accelerations:: 15 x 15 Decelerations:: None NST Reactive:: Yes FHR Category:: Category I Uterine Activity:: irregular ROS Constitutional Constitutional: Reports systems reviewed and no addt'l complaints, except as documented Eyes Eyes: Denies change in vision ENT HEENT: Reports systems reviewed and no addt'l complaints, except as documented; Denies headache(s) Cardiovascular Cardiovascular: Reports systems reviewed and no addt'l complaints, except as documented; Denies chest pain or dyspnea Respiratory/Chest Respiratory/Chest: Reports systems reviewed and no addt'l complaints, except as documented Gastrointestinal Gastrointestinal: Reports systems reviewed and no addt'l complaints, except as documented; Denies abdominal pain Genitourinary Genitourinary: Reports systems reviewed and no addt'l complaints, except as documented, contractions Details: present (irregular) and movement Details: present; Denies dysuria or genital lesions Musculoskeletal Musculoskeletal: Reports systems reviewed and no addt'l complaints, except as documented Neurologic Neurologic: Reports systems reviewed and no addt'l complaints, except as documented Endocrine Endocrinology: Reports systems reviewed and no addt'l complaints, except as documented Vital Signs Vital Signs Vital Signs: 03/28/23 09:18 Temperature 98.1 F Temperature Source Temporal Pulse Rate 94 Respiratory Rate 18 Blood Pressure 124/74 H Blood Pressure Mean 90 Blood Pressure Source Monitor Blood Pressure Position Sitting Blood Pressure Location Right Arm Pulse Ox 98 Oxygen Delivery Method Room Air Weight Weight: 194 lb 8 oz Body Mass Index (BMI) 33.3 Physical Exam Const alert, oriented x3, no apparent distress and healthy appearing HEENT normocephalic and moist oral mucous membranes Head and Scalp: atraumatic Neck full ROM, no lymphadenopathy, supple and thyroid normal General: trachea midline Lymph Lymphatic: no lymphadenopathy noted Chest inspection of chest normal Resp normal respiratory effort Cardio regular rate GI normal to inspection, nondistended, normoactive bowel sounds, soft to palpation and non-tender Inspection: gravid Extremity normal to inspection General Extremity: Negative for edema Skin no rashes or lesions noted Neuro no focal motor deficits and deep tendon reflexes 2+ bilaterally Motor Exam: strength 5/5 throughout and clonus absent Psych mental status grossly normal Labs Labs Labs: Blood Type B POSITIVE Antibody Screen NEGATIVE Hct 35.7 % (37-47) L Hgb 11.5 g/dL (12.0-15.0) L Obstetrics Ultrasound Syphilis Total Ab Non-reactive Rubella IgG Antibody Reactive (Nonreactive) Hep Bs Antigen Non-Reactive (Nonreactive) Hepatitis C Antibody Non-Reactive (Nonreactive) Chlamydia DNA (JACQUELINE) Negative (Negative) N.gonorrhoeae DNA (JACQUELINE) Negative (Negative) HIV 1&2 Antibody Non-Reactive (Nonreactive) Glucose 1 Hr 50 gm 149 mg/dL (70-140) H Gest Glucose Tolerance MG/DL Assessment & Plan (1) Oligohydramnios in third trimester: COMMENT: proceed with delivery primary (2) Mild pre-eclampsia: COMMENT: 2x weekly NST, weekly labs. PEC precautions provided. cs at 37 weeks. (3) Breech presentation: COMMENT: CS for presentation. (4) Anxiety: (5) Hyperlipidemia: COMMENT: enskyce potentially contributing. wants to retest prior to restarting any control. (6) : QUALIFIERS: Weeks of gestation: 34 weeks Qualified Code(s): Z3A.34 - 34 weeks gestation of COMMENT: NIPT low risk, gender female and carrier, normal anatomy consist ent ED (7) Supervision of high risk , antepartum: COMMENT: PRR girl; Citlaly. ED: 04/24/23 Eros (8) OCD (obsessive compulsive disorder): QUALIFIERS: Obsessive-compulsive disorder type: unspecified Qualified Code(s): F42.9 - Obsessive-compulsive disorder, unspecified COMMENT: Change from prozac to zoloft. Enc counseling PLAN: Plan After discussing the patient's diagnosis and treatment plan options, patient wishes to proceed with surgical management. I have discussed with the patient the risks, benefits, and alternatives of the procedure which include but are not limited to risks of anesthesia, bleeding, infection, possible damage to bowel, bladder, or surrounding vasculature which could lead to additional surgery to evaluate any complications. Patient agrees to procedure and wishes to proceed. ACOG/uptodate references given for additional information regarding procedure.
[2023-03-28 10:09] LABS: Absolute Lymphocyte Count 2.38 X10^3/uL (0.83-4.51); Absolute Neutrophil Count 7.1 X10^3/uL (2.0-7.7); Basophil# 0.04 X10^3/uL; Basophil% 0.4 % (0-1); Eosinophil# 0.24 X10^3/uL; Eosinophils% 2.3 % (0-5); Hematocrit 36.4 % (37-47); Hemoglobin 11.9 g/dL (12.0-15.0); Lymphocyte # 2.38 X10^3/ul (0.83-4.51); Lymphocyte % 22.8 % (19-41); Mean Corp Hgb Conc 32.7 g/dL (32-36); Mean Corpuscular Hgb 28.1 pg (27.0-32.0); Mean Corpuscular Volume 86.1 fL (81-99); Mean Platelet Vol. 10.7 fl (6.2-12.0); Monocyte# 0.65 X10^3/uL; Monocyte% 6.2 % (0-10); NRBC Flagged by Analyzer 0 % (0-5); Neutrophil # 7.06 X10^3/uL (2.7-7.7); Neutrophil % 67.8 % (47-70); Platelet Count 287 K/mm3 (150-450); RBC Distribution Width CV 13.9 % (11.6-14.6); Red Blood Count 4.23 M/mm3 (4.2-5.4); White Blood Count 10.4 K/mm3 (4.4-11.0)
--- NOTE | 2023-03-28 10:10 | EX.PCM.OBRPT ---
Maternal Data Information ED Calculator Estimated Delivery Date Method Current WG Current Estimate 04/24/23 LMP (Certain) 36w 2d Final ED Source: LMP Details Operative Information Date of Procedure: 03/28/23 Pre-Operative Diagnosis: see a/p breech oligo Post-Operative Diagnosis: same Indications for : Breech Indications Narrative: Surgeon: Lily Duran MD Classification: Scheduled Procedure Type: low transverse community service officer coordinator #1: Barbi Pillai Type of Anesthesia: Spinal Special Medications: none Antibiotic Given: Ancef 2 grams IV x1 Drain: Baldwin to straight drain Estimated Blood Loss: 600 Fluids Replaced: crystalloid Findings Description of Procedure: Spinal anesthesia was placed without difficulty. Baldwin catheter was placed. The patient was placed in the dorsal supine position with leftward tilt. Patient was prepped and draped in the normal sterile fashion. Pfannenstiel skin incision was made with the scalpel and carried through to the underlying layer of fascia with the scalpel. Fascia was nicked in the midline and the incision extended laterally. The rectus bellies were dissected off superiorly and inferiorly with out complication both sharply and bluntly. The peritoneum was entered digitally. The incision was stretched and a low transverse uterine incision was made with the scalpel. The buttox was delivered atraumatically and the right and left legs were swept anteriorly and delivered, followed by the body and the arms which were swept anteriorly and delivered. Gentle traction was placed on the mentum to flex the head which was delivered without complication. The cord was clamped and cut and the infant was handed off to awaiting nurse. The placenta was delivered spontaneously immediately following and was noted to be intact and have a three-vessel cord. The uterus was exteriorized cleared of all clots and debris, and the incision was closed in a single layer closure using #1 Monocryl. mylene placed over incision for hemostasis. pelvis was noted to very tight and reviewed this with the patient, recomend csections for future deliveries. The ovaries and fallopian tubes were noted to be within normal limits. The uterus was returned to the maternal abdomen and gutters were cleared of all clots and debris. The peritoneum was closed with 3-0 Monocryl in a running fashion. Fascia was closed with 0 PDS in a running fashion. Subcutaneous tissue was copiously irrigated and the skin was closed with 3-0 Monocryl in a subcuticular fashion. Mepilex dressing was applied without complication. Patient was taken to recovery in stable condition. It was discussed with the patient that based on the clinical information obtained during this encounter, combined with her history, at this time I would recommend cesareans for future deliveries if further pregnancies are desired. Amniotic Membrane Rupture Type: Artificial Amniotic Fluid Description: Clear Placenta Disposition: [facility] Cord Vessel Description: 3 Vessels Delayed Cord Clamping: Yes Complications Risks of Surgery Discussed w/Patient: Bleeding, Infection, Need for Future C-Sections and Injury to surrounding structure(s) including bowel and bladder Vaginal Delivery Complication Complications: None Admit VTE Documentation VTE Present on Admission: No VTE Mechan Device Prophylaxis: SCD's Procedures Urinary/Genital [id number]: [id number] Delivery [facility]
--- NOTE | 2023-03-28 10:12 | DCINST_ITS ---
Discharge Instructions Diet Discharge Diet: No restrictions Activity Discharge Activity: May Not Drive (for 2 weeks or while taking narcotic pain medications.), May Shower and May Take a Tub Bath (in 7 days) May shower in (days): 0 May resume sexual activity in: 4-6 weeks Weight Bearing Status: Full weight bearing Lifting Restrictions: 20 pounds Dressing / Incision Call your doctor if your incision/area has: Continuous Slow Oozing, Sudden Increased Bleeding, Increased Pain/ Swelling, Increased Redness and Foul Smelling Discharge Call your doctor if you observe: Fever of 101 or Higher and Using more than 1 pad per hour (for 2 hours) Suture Line Care: Avoid Pulling/Pushing and Avoid Pinching/Bending Cleanse incision/area with: Soap & Water and Keep Dressing Clean & Dry Follow Up Care Please Follow Up With: Lily Duran MD When: Call [phone] to make an appointment for an incision check in 1-2 weeks. Test Results: Test results from this visit will be discussed in further detail at your follow- up appointment, if applicable. Discharge Plan Admission Admit Date/Time: 03/28/23 08:40 Attending Provider: Lily Duran Primary Care Provider: Mykel Montoya Discharge Orders/Prescriptions Prescriptions: New oxycodone-acetaminophen [Percocet] 5-325 mg tablet 1 tab PO Q6H PRN (Reason: pain) 7 Days Qty: 20 0RF naproxen [naproxen] 500 mg tablet 500 mg PO BID PRN PRN (Reason: Pain) Qty: 30 1RF No Action cholecalciferol (vitamin D3) 50 mcg (2,000 unit) capsule 50 mcg PO DAILY DHA 200 mg capsule PO Patient Comments: 2 gummies famotidine [Pepcid] 20 mg tablet 20 mg PO DAILY Qty: 30 6RF sertraline [Zoloft] 50 mg tablet 75 mg PO DAILY 90 Days Qty: 135 7RF Referrals / Follow Up: Mykel Montoya MD [Primary Care Provider] -
[2023-03-28 10:34] LABS: ALB/GLOB Ratio 0.5 RATIO (0.9-2.4); AST(SGOT) 15 U/L (15-37); Alanine Aminotransfer ALT/SGPT 15 U/L (13-56); Albumin, Serum 2.4 g/dL (3.2-5.0); Alkaline Phosphatase 206 U/L (45-117); Anion Gap 8 (5-15); BUN 8 mg/dL (7-18); BUN/Creat Ratio 15.4 RATIO (10-20); Calcium,Total 8.6 mg/dL (8.5-10.1); Chloride 108 mmol/L (98-107); Creatinine, Serum 0.52 mg/dL (0.55-1.02); EST Glomerular Filtration Rate 144 mL/min (>60); Est Glom Filt Rate - Afr Amer 174 mL/min (>60); Estimated Creatinine Clearance 132.88 ml/min; Glucose 71 mg/dL (74-106); Protein, Total 7.4 g/dL (6.4-8.2); Sodium Level 138 mmol/L (136-145)
[2023-03-28] MEDS: Lactated Ringers 1,000 ML 150 ML IV (10:56)
[2023-03-28 11:10] LABS: Syphilis Antibodies Non-reactive
[2023-03-28] MEDS: Sodium Citrate/Citric Acid 30 ML UDC PO (12:43)
[2023-03-28] MEDS: Cefazolin 2 GM in 0.9% Normal Saline (100mL Bag) 100 ML IV (12:43)
--- NOTE | 2023-03-28 13:43 | PLAC_PTH ---
PATIENT: KRISTA CHIRINOS LOC: [facility] U#:[id number] AGE/SX: 32/F ROOM: WP009 RE03/28/[address]: Dr. Lily Duran MD : 1990 BED: 1 DIS: 03/30/2023 SPEC #: [id number] RECD: 03/29/23 09:28 STATUS: ROSEANNA RUBIO #: [id number] ELENO: 03/28/23 13:[address]: Lily Duran DEPT: SURGICAL PATHOLOGY RECD BY: Clarissa Alston ENTERED: 03/29/23 09:28 SP TYPE: PLACENTA OTHR DR: Dr. Mykel Montoya MD Tissues: Placenta, NOS Procedures: Surgery Specimen Level V HEADER OPERATION: Primary section PRE-OP DIAGNOSIS: Labor TISSUE SUBMITTED: Placenta MICROSCOPIC DIAGNOSIS Jackman placenta (328 gm): Umbilical cord - trivascular with no inflammation Placental membranes - No pathologic change. Placental disc - Gabbie-Cruzito change, organizing intraparenchymal hemorrhage and focal nonspecific chronic villitis. AM:quang 03/31/2023 MICROSCOPIC DESCRIPTION Slides are reviewed. GROSS DESCRIPTION SPECIMEN: PLACENTA / CLINICAL INFORMATION: A. Weight: 2.235 kg B. Gestational Age: 36 weeks C. Sex: Female PLACENTAL WEIGHT (POST FIXATION): 328 gm PLACENTAL DIMENSIONS: 15.0 x 13.0 x 3.0 cm PLACENTAL SHAPE: Usual ovoid PLACENTAL WEIGHT FOR GESTATIONAL AGE: Under 10th percentile MEMBRANES - Present A. Insertion: Marginal B. Site of rupture from edge: 2.0 cm from edge of placental disc C. Color of membrane: Stevens-sawyer D. Abnormalities: None UMBILICAL CORD - Present A. Color: Stevens-sawyer B. Insertion: Eccentric C. Length: 45.0 cm D. Diameter: 1.2 cm E. Number of vessels: Three F. Abnormalities: None PLACENTAL DISC - Present A. Color of surface: Stevens-sawyer B. surface abnormalities: None C. Maternal cotyledons: Intact with minimal tears D. Attached retro placental clot: No clot E. Cut surface: Dark red and spongy F. Lesions: None G. Separate clot: Submembranous area of blood clot measuring 8.5 x 6.0 x 1.0 cm. SECTIONS SUBMITTED: 1. Umbilical cord ( end notched) 2. Umbilical cord, placental end 3. Membrane roll 4. Placental disc, and maternal surfaces 5. Placental disc, and maternal surfaces 6. Placental disc, and maternal surfaces AM:quang 03/29/2023 TC:3 CPT: 58965
[2023-03-28] MEDS: Oxytocin 15 Units/NS 250ml 15 UNITS/250 ML IV.SOLN 83 UNITS IV (14:15)
[2023-03-28] MEDS: Ketorolac 30 MG/ML Syringe IV ×2 (14:37→20:38)
[2023-03-28 15:25] LABS: Pathology Specimen OB SEE PATHOLOGY REPORT
[2023-03-28] MEDS: Lactated Ringers 1,000 ML 250 ML IV ×2 (17:16→21:31)
[2023-03-28] MEDS: Sertraline 50 MG Tablet 75 MG PO (21:41)
[2023-03-28] MEDS: Famotidine 20 MG Tablet PO (22:45)
[2023-03-29] MEDS: Enoxaparin 40 MG/0.4 ML Syringe SC (01:20)
[2023-03-29] MEDS: Ketorolac 30 MG/ML Syringe IV ×2 (02:09→08:53)
[2023-03-29 02:10] VITALS: BP 133/75; PULSE 86; RESP 16; O2SAT 98
[2023-03-29 04:44] VITALS: BP 127/59; PULSE 86; RESP 16; O2SAT 97
[2023-03-29] MEDS: Acetaminophen 500 MG Tablet 1000 MG PO ×4 (04:46→22:39)
[2023-03-29 06:45] LABS: Hematocrit 29.8 % (37-47); Hemoglobin 9.6 g/dL (12.0-15.0); Mean Corp Hgb Conc 32.2 g/dL (32-36); Mean Corpuscular Hgb 28.5 pg (27.0-32.0); Mean Corpuscular Volume 88.4 fL (81-99); Mean Platelet Vol. 10.5 fl (6.2-12.0); Platelet Count 211 K/mm3 (150-450); RBC Distribution Width CV 14.1 % (11.6-14.6); RBC Distribution Width SD 45.4 fl (35.1-43.9); Red Blood Count 3.37 M/mm3 (4.2-5.4); White Blood Count 13.2 K/mm3 (4.4-11.0)
--- NOTE | 2023-03-29 07:58 | PN.OBGYN_ITS ---
Subjective Subjective Patient doing well without complaints. Tolerating PO. Ambulating and voiding without difficulty. Feeding well. Denies chest pain, shortness of breath, calf pain/swelling, fevers, chills, lightheadedness. Objective Data Objective Data Vital Signs: Vital Signs Temp Pulse Resp BP Pulse Ox O2 Del Method 98.5 F 86 16 127/59 H 97 Room Air 03/28/23 21:02 03/29/23 04:44 03/29/23 04:44 03/29/23 04:44 03/29/23 04:44 03/29/23 04:44 Oxygen Delivery Method Room Air Weight: 194 lb 8 oz Body Mass Index (BMI) 33.3 Intake & Output: Intake and Output for Last 24 Hours 03/27/23 03/28/23 03/29/23 23:59 23:59 23:59 Intake Total 3278.33 / 3278.33 1000 / 1000 Output Total 900 / 900 750 / 750 Balance 2378.33 / 2378.33 250 / 250 Lab / Micro Data 03/29/23 06:30 03/28/23 09:50 Labs: Laboratory Results - last 24 hr 03/28/23 09:50: WBC 10.4, RBC 4.23, Hgb 11.9 L, Hct 36.4 L, MCV 86.1, MCH 28.1, MCHC 32.7, RDW Std Deviation 43.0, RDW Coeff of Chris 13.9, Plt Count 287, MPV 10.7, Immature Gran % (Auto) 0.500, Neut % (Auto) 67.8, Lymph % (Auto) 22.8, [place] % (Auto) 6.2, Eos % (Auto) 2.3, Baso % (Auto) 0.4, Absolute Neuts (auto) 7.1, Absolute Lymphs (auto) 2.38, Nucleated RBC % 0, Sodium 138, Potassium 4.0, Chloride 108 H, Carbon Dioxide 22.0, Anion Gap 8, BUN 8, Creatinine 0.52 L, Estim Creat Clear Calc 132.88, Est GFR (MDRD) Af Amer 174, Est GFR (MDRD) Non-Af 144, BUN/Creatinine Ratio 15.4, Glucose 71 L, Calcium 8.6, Total Bilirubin 0.20, AST 15, ALT 15, Alkaline Phosphatase 206 H, Total Protein 7.4, Albumin 2.4 L, Globulin 5.0 H, Albumin/Globulin Ratio 0.5 L, Syphilis Total Ab Non-reactive, Blood Type B POSITIVE, Antibody Screen NEGATIVE 03/29/23 06:30: WBC 13.2 H, RBC 3.37 L, Hgb 9.6 L, Hct 29.8 L, MCV 88.4, MCH 28.5, MCHC 32.2, RDW Std Deviation 45.4 H, RDW Coeff of Chris 14.1, Plt Count 211, MPV 10.5 Physical Exam Const alert and oriented x3 HEENT normocephalic Eyes PERRL Neck full ROM Resp normal respiratory effort GI soft to palpation GI Narrative: FF below U. Dressing dry and intact Palpation: tender other (appropriately) Assessment & Plan (1) delivery delivered: COMMENT: LTCS breech oligo SM girl Citlaly 36 PLAN: Plan s/p LTCS PPD # 1 1. routine post care 2. bottle feeding- support given 3. rh positive 4. rubella immune
[2023-03-29] MEDS: 0.9% Saline Lock 10 ML Syringe IV (08:53)
[2023-03-29 09:10] VITALS: BP 126/70; PULSE 87; RESP 16; TEMP 36.9; O2SAT 98
[2023-03-29] MEDS: Famotidine 20 MG Tablet PO (10:43)
[2023-03-29] MEDS: Senna/Docusate Sodium 1 Tablet PO (10:43)
[2023-03-29 12:44] VITALS: BP 124/70; PULSE 81; RESP 16; O2SAT 98
[2023-03-29] MEDS: Naproxen 500 MG Tablet PO ×2 (14:48→20:35)
--- NOTE | 2023-03-29 15:21 | CASEMGMT ---
Social Work Assessment Labor and Delivery Unit Patient Address: [address] [place] [address] Phone number: [phone] Date of Referral: 03/29/23 Time of Referral:? 013 Referred By: Lily Duran Date of Intervention: ??03/29/23 Time of Intervention:? 1400 Reason for Referral: hx of anxiety and depression Sw completed chart review and acknowledges social work consult due to maternal history of anxiety and depression. Sw presented to bedside and introduced self to mother of baby (SOPHIE- Deysi) and explained sw role during admission. Father of baby (FOB- Eros) was asleep for beginning part of assessment. FOB woke up later on and engaged in the conversation. ? History obtained from: medical records and MOB and FOB. Household composition: Currently residing in the family home is MOB, FOEstuardo and now baby girl. MOB states that their housing is safe and secure, no concerns at this time. Patient's parent/guardian status:? ?MOB states that she and FOB were set up on a blind date when MOB was 14 years old. MOB states that she and FOB have been together ever since which is about 16 years. MOB denies any concerns of domestic violence or intimate partner violence. Medical History: ?SOPHIE is 32 year old female who is 1, para 0-now 1 following labor and delivery of baby. SOPHIE received routine care with [facility] throughout . SOPHIE delivered baby on 03/28/23 at 36 weeks gestation via due to baby being breech. Baby girl, named Kailey Bruno, was born weighing 4lb 15oz and her apgars were 8 and 9 at one and five minutes of life respectfully. Baby will be followed by Dr. Coreas for pediatrics. Educational Status:? Both parents graduated from high school and obtained some college education- no college degree. MOB denies any concerns with reading, learning or comprehension. Financial Status: Both parents are gainfully employed outside of the home. FOEstuardo works for [employer] and is able to take three weeks of week off work paid now that baby has been born. SOPHIE works for [employer] and is able to take 8 weeks of work off paid for maternity leave. Supplies:?? MOB states that they have been able to obtain all necessary baby items, and then some, including: car seat, safe sleep space, clothes, diapers and wipes. Childcare/Caregiver(s):? SOPHIE will be the primary caregiver to baby once discharged to home, along with ANAMIKA when he is not working. SOPHIE states that when both parents have returned to work Kailey will be babysat by their family friend. Transportation:??Both parents have a drivers license and reliable means of transportation. No transportation barriers at this time. Programs/Agencies Involved: ???No community resources involved at this time. SOPHIE states that she was previously connected to [facility] for counseling services, but is not utilizing them at this time. SOPHIE states that her employer is providing $900 towards counseling reimbursement going into the new year, so SOPHIE plans to take advantage of that benefit and get connected to counseling. Children Services/Legal Issues:???No history of involvement, no concerns or issues warranting referral to be made at this time. Behavioral Health Issues: ??Mental Health History:?ANAMIKA denies mental health history. SOPHIE states that she has been diagnosed with anxiety, depression, OCD and a panic disorder. SOPHIE states that she had handwashing tendancies when she was younger, and overtime her OCD and anxiety manifested into health anxiety. SOPHIE states that ever since her mom became diagnosed with cancer in 2019/2020, she always felt anxious about her health. SOPHIE states that once she got she was not nervous about her health anymore, she has felt more calm. SOPHIE states that even after delivery of baby she is feeling more calm. SOPHIE completed an Lillie Depression Scale and her score was an 11. Sw provided education and support. SOPHIE was formerly prescribed fluoxetine, but switched to zoloft during . SOPHIE stated that now that baby has been born she has already discussed switching back to the fluoxetine.?? Substance Use History:?SOPHIE denies substance use prior to and during . ? Family History:??MOB denies any family history of substance use or mental health diagnoses. ??? Drug Screens: ??No urine screens observed in chart review. Family/Social Stressors:?SOPHIE states that her only stressor at this time is the relationship with her mother. SOPHIE states that her mom is extremely overwhelming and she is putting some strict boundaries in place now that the baby has been born. Sw utilized active listening and provided ongoing support. Support Systems: Both parents report that they have natural supports found in FOB's twin brother and his girlfriend, as well as the girlfriend's sister. MOB states that when both parents are working the sister of the girlfriend (Isaura) will be babysitting for them. Depression/Shaken Baby/Safe Sleeping:? Sw educated parents on signs and symptoms of baby blues and depression. Parents expressed understanding. MOB stated that ANAMIKA is her biggest support person and they have been together for so long that he will be able to recognize signs of struggle should MOB experience them. MOB stated that if she does experience the baby blues or depression/ anxiety FOB will know how to support her and help her. Sw educated parents on shaken baby prevention and ABCs of safe sleep. Parents expressed understanding. ASSESSMENT:? MOB and baby admitted following labor and delivery. MOB talkative and open to discuss her mental health history and what has helped her over the years. MOB has plan in place with medication and is open to getting connected to mental health supports within the community. MOB and FOB appear to have very strong and close relationship. Baby was not in room while sw was meeting with parents due to completing a car seat challenge. MOB aware of resources that would be of benefit for her. MOB scored 11 on the Lillie depression scale, education provided. PLAN:? MOB and baby to be discharged when medically ready. ?No other services requested or indicated.
[2023-03-29] MEDS: Sertraline 50 MG Tablet 75 MG PO (20:35)
[2023-03-29 20:37] VITALS: BP 136/61; PULSE 81; RESP 16; O2SAT 96
[2023-03-30] MEDS: Famotidine 20 MG Tablet PO ×2 (00:50→10:27)
[2023-03-30] MEDS: Enoxaparin 40 MG/0.4 ML Syringe SC (00:50)
[2023-03-30 01:04] VITALS: BP 153/83; PULSE 85; RESP 16; TEMP 36.2; O2SAT 99
[2023-03-30] MEDS: SimETHICONE 80 MG Chewable Tablet PO (01:20)
[2023-03-30 01:27] LABS: Bedside Glucose 70 mg/dL (74-106)
[2023-03-30] MEDS: Acetaminophen 500 MG Tablet 1000 MG PO ×2 (04:24→10:27)
[2023-03-30] MEDS: Naproxen 500 MG Tablet PO ×2 (04:24→10:27)
--- NOTE | 2023-03-30 05:07 | PCM.PN.OB ---
Subjective Subjective Patient doing well without complaints. Tolerating PO. Ambulating and voiding without difficulty. feeding well. Denies chest pain, shortness of breath, calf pain/swelling, fevers, chills, lightheadedness. Objective Data Objective Data Vital Signs: Vital Signs Temp Pulse Resp BP Pulse Ox O2 Del Method 97.2 F L 85 16 153/83 H 99 Room Air 03/30/23 01:04 03/30/23 01:04 03/30/23 01:04 03/30/23 01:04 03/30/23 01:04 03/30/23 01:04 Oxygen Delivery Method Room Air Weight: 194 lb 8 oz Body Mass Index (BMI) 33.3 Intake & Output: Intake and Output for Last 24 Hours 03/28/23 03/29/23 03/30/23 23:59 23:59 23:59 Intake Total 3278.33 / 3278.33 1000 / 1000 Output Total 900 / 900 1450 / 1450 Balance 2378.33 / 2378.33 -450 / -450 Lab / Micro Data 03/29/23 06:30 03/28/23 09:50 Labs: Laboratory Results - last 24 hr 03/29/23 06:30: WBC 13.2 H, RBC 3.37 L, Hgb 9.6 L, Hct 29.8 L, MCV 88.4, MCH 28.5, MCHC 32.2, RDW Std Deviation 45.4 H, RDW Coeff of Chris 14.1, Plt Count 211, MPV 10.5 03/30/23 01:01: POC Glucose 70 L ROS Constitutional Constitutional: Reports systems reviewed and no addt'l complaints, except as documented Cardiovascular Cardiovascular: Reports systems reviewed and no addt'l complaints, except as documented Respiratory/Chest Respiratory/Chest: Reports systems reviewed and no addt'l complaints, except as documented Gastrointestinal Gastrointestinal: Reports systems reviewed and no addt'l complaints, except as documented Physical Exam Const alert, oriented x3 and no apparent distress HEENT Head and Scalp: atraumatic Resp normal respiratory effort GI soft to palpation and non-tender Inspection: incision intact, healing well and drainage (none) Bimanual Exam - Vag & Uterus: uterus non-tender Uterus Palpation: uterus fundus firm (below Umbilicus) Assessment & Plan (1) Hyperlipidemia: COMMENT: enskyce potentially contributing. wants to retest prior to restarting any control. (2) OCD (obsessive compulsive disorder): QUALIFIERS: Obsessive-compulsive disorder type: unspecified Qualified Code(s): F42.9 - Obsessive-compulsive disorder, unspecified COMMENT: Change from prozac to zoloft. Enc counseling (3) delivery delivered: COMMENT: LTCS breech oligo SM girl Citlaly 36 (4) Mild pre-eclampsia: COMMENT: monitor bps and prescribe medications PRN PLAN: Plan s/p LTCS PPD # 2 1. routine post care 2. breast feeding- support given 3. rh positive 4. rubella immune preeclampsia- monitor bps today
[2023-03-30 05:09] VITALS: BP 152/84; PULSE 103
[2023-03-30 05:11] VITALS: BP 150/87; PULSE 96
[2023-03-30] MEDS: NIFEdipine 30 MG Tablet PO (07:35)
[2023-03-30 08:45] VITALS: BP 123/71; PULSE 82; RESP 16; TEMP 36.6; O2SAT 98
[2023-03-30 12:38] VITALS: BP 122/71; PULSE 91; RESP 14; TEMP 36.6; O2SAT 98
== END 2023-03-30 15:10 | disposition home or self-care (01) | DRG 786 ==
PROVIDERS: Admitting Provider Obstetrics & Gynecology; PCP Family Medicine; Visit Provider Obstetrics & Gynecology
DX: O32.1XX0 Maternal care for breech presentation, not applicable or unspecified (principal); O60.14X0 Preterm labor third trimester with preterm delivery third trimester, not applicable or unspecified; O41.03X0 Oligohydramnios, third trimester, not applicable or unspecified; E78.5 Hyperlipidemia, unspecified; F41.9 Anxiety disorder, unspecified; O14.04 Mild to moderate pre-eclampsia, complicating childbirth; Z37.0 Single live birth; F42.9 Obsessive-compulsive disorder, unspecified; O99.284 Endocrine, nutritional and metabolic diseases complicating childbirth; O99.344 Other mental disorders complicating childbirth; Z3A.34 34 weeks gestation of pregnancy
CPT/HCPCS: 59025; 59050; 80053; 82962; 85025; 85027; 86780; 86850; 86900; 86901; 88307; 99221; 99252; J7120; A4216; G0378; G0463; J2405

== ENCOUNTER → 2023-03-28 | Outpatient (CLI) | payer BC, SELFPAY ==
--- NOTE | 2023-03-28 07:59 | US_ITS ---
HISTORY: KERRI. TECHNIQUE: Transabdominal pelvic ultrasound was performed. 26 images. COMPARISON: 03/24/2023. FINDINGS: INTRAUTERINE GESTATION(s): Single. PRESENTATION: Breech. PLACENTA: Anterior, grade 1. No placenta previa. CERVIX: Not well visualized. HEART MOTION: 136 bpm. AMNIOTIC FLUID INDEX (KERRI): 3.2 cm. Largest fluid pocket 1.7 cm. US/OB Limited (No Biometrics) IMPRESSION: Single living intrauterine currently in breech presentation. Oligohydramnios with KERRI 3.2 cm. Preliminary report given by graphics coordinator to office and patient sent to labor and delivery. Electronically Signed: Jessica Jack MD at 8:43 EST ,
== END | disposition home or self-care (01) ==
LOC: OPUS 07:58
PROVIDERS: PCP Family Medicine; Referring Provider Registered Nurse; Visit Provider Registered Nurse
DX: O14.00 Mild to moderate pre-eclampsia, unspecified trimester (principal); Z3A.34 34 weeks gestation of pregnancy
CPT/HCPCS: 76815

== ENCOUNTER → 2023-05-16 | Outpatient (CLI) | payer BC, SELFPAY ==
[2023-05-16 10:24] LABS: Cholesterol 254 mg/dL (200); High Density Lipoprotein 42 mg/dL; Triglycerides 192 mg/dL; Very Low Density Lipoprotein 38 mg/dL (5-40)
--- OUTSIDE RECORDS SUMMARY | 2023-05-16 10:58 | XMS RPT_ITS | CCD ---
Author Name Unknown Address [address] [place] [address] Organization [facility] Care Team Providers Care Human Resources Records Clerk Name Role Phone EARL AMBROSE Unavailable Unavailable EARL AMBROSE Unavailable Unavailable Mykel Lewis MD Primary Care Provider 1( [phone] Mykel Lewis MD Primary Care Provider ESTELLE VELA Attending Unavailable MYKEL LEWIS Primary Care Unavailable JONA OLIVAREZ Attending Unavailable MYKEL LEWIS Primary Care Unavailable JULI MARTINEZ Attending Unavailable MYKEL LEWIS Primary Care Unavailable HEIDY VILLANUEVA Attending Unavailable MYKEL LEWIS Primary Care Unavailable MYKEL LEWIS Primary Care Unavailable DIANA CANNON Attending Unavailable MYKEL LEWIS Primary Care Unavailable RENETTA JUDD Attending Unavailable LEWISMYKEL MCINTOSH Primary Care Unavailable RENETTA JUDD Attending Unavailable TRACY RIVAS Referring Unavailable TRACY RIVAS Attending Unavailable MYKEL LEWIS Primary Care Unavailable Allergies Allergy Classification Reported Allergen(s) Allergy Type Date of Onset Reaction(s) Facility (5 sources) Amoxicillin / Clavulanate; Translations: [AMOXICILLIN-PO T CLAVULANATE] Drug Allergy 5 Unknown [facility] (5 sources) Caffeine; Translations: [CAFFEINE] Drug Allergy 5 Other: See Comments [facility] (3 sources) Penicillins; Translations: [PENICILLINS] Drug Intolerance 2 GI Upset [facility] Work Phone: (2 sources) Penicillins Drug Intolerance 2 GI Upset [facility] Work Phone: Medications Current Medications Medication Drug Class(es) Dates Sig (Normalized) Sig (Original) doxycycline monohydrate 100 mg oral capsule (1 source) Tetracycline-clas s Drug Start: 06-28-2022 End: 07-03-2022 take 1 capsule by mouth twice daily doxycycline monohydrate (MONODOX) 100 mg capsule Take 1 capsule by mouth twice daily for 5 days. 10 capsule 0 06/28/2022 07/03/2022 Active Completed/Discontinued Medications Medication Drug Class(es) Dates Sig (Normalized) Sig (Original) [id number] 200 actuat albuterol 0.09 mg/actuat metered dose inhaler (4 sources) beta2-Adrenergic Agonist Start: 08-13-2018 take 2 puff(s) by inhalation every four hours as needed for wheezing albuterol HFA (VENTOLIN HFA) 90 mcg/actuation inhaler Indications: Acute viral bronchitis Inhale 2 Puffs as instructed every 4 hours as needed for Wheezing/Shortnes s of Breath. 1 Inhaler 0 08/13/2018 Active Problems Problem Classification Problem Date Documented Da te Episodic/Chronic Other upper respiratory infections (1 source) Acute sinusitis; Translations: [Acute sinusitis, unspecified] Episodic Residual codes; unclassified (1 source) Treatment not available; Translations: [Procedure and treatment not carried out for other reasons] Episodic Unclassified (1 source) APPOINTMENT CANCELLED Urinary tract infections (1 source) Acute cystitis; Translations: [Acute cystitis without hematuria] Episodic Results Test Name Value Interpretation Reference Range Facil ity Encounters Encounter Date Encounter Type Care Provider Facility Start: 12-05-2022 End: 12-05-2022 ambulatory TRACY RIVAS [facility] Start: 06-28-2022 End: 06-28-2022 ambulatory MYKEL LEWIS Facility:[facility] Start: 06-28-2022 End: 06-28-2022 ambulatory Diana Cannon PA-C Work Phone: Telemedicine Plan of Treatment Date Care Activity Detail Author Start: 05-08-2022 DEPRESSION ASSESSMENT DEPRESSION ASS ESSMENT [facility] Start: 01-06-2022 Influenza vaccination [facility] Start: 01-04-2022 COVID-19 VACCINE (4 - Booster for Moderna series) COVID-19 VACCINE (4 - Booster for Moderna series) [facility] Start: 02-10-2021 COVID-19 VACCINE (3 - Booster for Moderna series) COVID-19 VACCINE (3 - Booster for Moderna series) [facility] Start: 2019 HPV TESTING HPV TESTING [facility] Start: 2010 PAP TESTING PAP TESTING [facility] Start: 2008 Urine microalbumin profile DTAP,TDAP ,TD (1 - Tdap) [facility] Start: 2007 HEPATITIS C SCREENING HEPATITIS C SC REENING [facility] Start: 2007 HIV SCREENING HIV SCREENING [facility] Start: 2001 Adult depression [facility] DEPRESSION SCREENING [facility] Start: 1989 HEPATITIS B (1 of 3 - 3-dose series) HEPATITIS B (1 of 3 - 3-dose series) [facility] Payers Date Payer Category Payer Unknown [employer] [place] [employer] [id number] 2021-Present [phone] [address] [place] [address] PPO [id number] 2021 Unknown [id number] 2018 Unknown MMO MMO [employer] [id number] 2018-Present [phone] [address] [place] [address] PPO [id number] 2016 Unknown [id number] 1989 Unknown [id number] Social History Date Type Detail Facility Start: 06-03-2014 Tobacco smoking stat us OKIS Never smoked tobacco [facility] Start: 06-03-2014 Tobacco use and exposure Smoke less tobacco non-user [facility] Start: 12-19-2019 Alcohol intake Not Asked [facility] Start: 1990 Sex Assigned At Not on file [facility] Clinical Notes 09-10-2021 to 06-28-2022 Diana Cannon PA-C - 06/28/2022 8:14 PM Jigar Judd APRN.SENIOR CONSUMER INSIGHTS CONSULTANT - 06/26/2022 3:16 PM Emmanuel Fields APRN.SENIOR CONSUMER INSIGHTS CONSULTANT - 09/10/2021 2:50 PM EDTPatient Instructions Note Date & Type Note Facility 06-28-2022 Note HNO ID: [id number] Author: Diana Cannon PA-C Service: ? Author Type: Physician Radiology Supervisor Type: Progress Notes Filed: 06/28/2022 8:17 PM Note Text: Telemedicine Visit - Distance Health Virtual Visit Note Patient seen on Money Forward Online platform. Location of patient: [place] History of Present Illness Krista Price is a 32 year old year old female who presents for the past 10 days with symptoms that are:constant. Symptoms include: Positive for Nasal congestion, PND, Rhinorrhea, Face pain/pressure, and Headache, Negative for Fever, Nausea, Emesis, and Diarrhea Oral intake: normal Tobacco use: No Second hand smoke exposure: No Recent exposure to strep:No Sick contacts: denies Recent travel: denies OTC meds/remedies that patient has tried: sudafed. Had negative covid test last week No past medical history on file. No past surgical history on file. No family history on file. Social History Tobacco Use Smoking status: Never Smokeless tobacco: Never Current Outpatient Medications Medication Sig predniSONE (DELTASONE) 20 mg tablet Take 2 tablets by mouth once daily. benzonatate (TESSALON PERLES) 100 mg capsule Take 1 capsule by mouth three times daily as needed for Cough. traZODone (DESYREL) 50 mg tablet Take 50 mg by mouth daily at bedtime. PARoxetine (PAXIL) 20 mg tablet Take 20 mg by mouth once daily. hydrOXYzine HCl (ATARAX) 50 mg tablet Take 50 mg by mouth daily at bedtime. Lactobacillus acidophilus (FLORAJEN) 460 mg (20 billion cell) cap Take 1 capsule by mouth once daily. (Patient not taking: Reported on 07/02/2019 ) albuterol HFA (VENTOLIN HFA) 90 mcg/actuation inhaler Inhale 2 Puffs as instructed every 4 hours as needed for Wheezing/Shortness of Breath. (Patient not taking: Reported on 04/09/2019 ) Desogestrel-Ethinyl Estradiol (ENSKYCE) 0.15-0.03 mg per tablet Take 1 tablet by mouth once daily. LORazepam (ATIVAN) 1 mg tablet Take 1 mg by mouth every 6 hours as needed. escitalopram oxalate (LEXAPRO) 10 mg tablet Take 10 mg by mouth once daily. PHENAZOPYRIDINE HCL (AZO ORAL) Take by mouth. citalopram (CELEXA) 20 mg tablet Take 20 mg by mouth once daily. Desogestrel-Ethinyl Estradiol (RECLIPSEN, 28,) 0.15-30 mg-mcg per tablet Take 1 tablet by mouth once daily. No current facility-administered medications for this visit. ALLERGIES Allergen Reactions Augmentin [Amoxicil* Unknown Caffeine Other: See Comments Hives Penicillins GI Upset abd pain, n/v/d Video Exam (Examination performed via Video enabled technology) General appearance: Alert, oriented, pleasant, in NAD :Yes Ill appearing :No Lethargic appearing :No Eyes: Sclera clear :Yes Conjunctiva without erythema :Yes Ears: Tragus / outer ear tenderness by self palpation :No Oropharynx: normal, no erythema Frontal sinus tenderness by self palpation;Yes Maxillary sinus tenderness by self palpation :No Tender cervical adenopathy by self palpation :No Respiratory distress :No Coughing noted :No Audible wheezing noted :No ASSESSMENT/PLAN: 1. Acute sinusitis, recurrence not specified, unspecified location - ICD9: 461.9, ICD10: J01.90 - Will begin treatment with Doxycycline - The patient should also be given warm salt water gargles, throat lozenges and/or OTC throat spray as needed and nasal saline gtts and suction prn for the first 5-7 days of treatment. - Supportive care with plenty of fluids, rest, and analgesia prn. - Follow up in 3-5 days if symptoms persist or worsen. -Tylenol (generic acetaminophen) 500 mg-2 tabs every 8 hrs. as needed for fever and aches -Sudafed (generic is fine), behind the counter, 2x30 mg tabs twice daily as needed for congestion -Mucinex (generic is fine) 1200 mg twice daily to help with cough and to thin out mucus -http://www.choosingwisely.org/pa tient-resources/antibiotics/. This link shares information about when antibiotics may help and when they may not. - Red flags discussed for need for in person care - All questions answered Diana Cannon PA-C If you let us know who your primary care provider is, we will send them a notification of today?s visit through our electronic medical records system. Since not all providers have access to our notifications, we strongly encourage you to share the following record of today?s visit with your primary care provider at your next visit. This will help in providing you the best care. If you do not have an established Primary Care physician and would like to continue care with a [facility] Virtual Primary Care physician, please ask your provider to place a Establish Primary Care order. Use iCurrent to manage your care, wherever you are, 28/11, on your mobile device or computer. iCurrent connects you to [employer] so you can access all your health information in one place and also schedule and request virtual appointments with primary care (more content not included)... [facility] 06-28-2022 History of Present illness Narrative Telemedicine Visit - Distance Health Virtual Visit Note Patient seen on Money Forward Online platform. Location of patient: [place] History of Present Illness Krista Price is a 32 year old year old female who presents for the past 10 days with symptoms that are:constant. Symptoms include: Positive for Nasal congestion, PND, Rhinorrhea, Face pain/pressure, and Headache, Negative for Fever, Nausea, Emesis, and Diarrhea Oral intake: normal Tobacco use: No Second hand smoke exposure: No Recent exposure to strep:No Sick contacts: denies Recent travel: denies OTC meds/remedies that patient has tried: sudafed. Had negative covid test last week No past medical history on file. No past surgical history on file. No family history on file. Social History Tobacco Use Smoking status: Never Smokeless tobacco: Never Current Outpatient Medications Medication Sig predniSONE (DELTASONE) 20 mg tablet Take 2 tablets by mouth once daily. benzonatate (TESSALON PERLES) 100 mg capsule Take 1 capsule by mouth three times daily as needed for Cough. traZODone (DESYREL) 50 mg tablet Take 50 mg by mouth daily at bedtime. PARoxetine (PAXIL) 20 mg tablet Take 20 mg by mouth once daily. hydrOXYzine HCl (ATARAX) 50 mg tablet Take 50 mg by mouth daily at bedtime. Lactobacillus acidophilus (FLORAJEN) 460 mg (20 billion cell) cap Take 1 capsule by mouth once daily. (Patient not taking: Reported on 07/02/2019 ) albuterol HFA (VENTOLIN HFA) 90 mcg/actuation inhaler Inhale 2 Puffs as instructed every 4 hours as needed for Wheezing/Shortness of Breath. (Patient not taking: Reported on 04/09/2019 ) Desogestrel-Ethinyl Estradiol (ENSKYCE) 0.15-0.03 mg per tablet Take 1 tablet by mouth once daily. LORazepam (ATIVAN) 1 mg tablet Take 1 mg by mouth every 6 hours as needed. escitalopram oxalate (LEXAPRO) 10 mg tablet Take 10 mg by mouth once daily. PHENAZOPYRIDINE HCL (AZO ORAL) Take by mouth. citalopram (CELEXA) 20 mg tablet Take 20 mg by mouth once daily. Desogestrel-Ethinyl Estradiol (RECLIPSEN, 28,) 0.15-30 mg-mcg per tablet Take 1 tablet by mouth once daily. No current facility-administered medications for this visit. ALLERGIES Allergen Reactions Augmentin [Amoxicil* Unknown Caffeine Other: See Comments Hives Penicillins GI Upset abd pain, n/v/d Video Exam (Examination performed via Video enabled technology) General appearance: Alert, oriented, pleasant, in NAD :Yes Ill appearing :No Lethargic appearing :No Eyes: Sclera clear :Yes Conjunctiva without erythema :Yes Ears: Tragus / outer ear tenderness by self palpation :No Oropharynx: normal, no erythema Frontal sinus tenderness by self palpation;Yes Maxillary sinus tenderness by self palpation :No Tender cervical adenopathy by self palpation :No Respiratory distress :No Coughing noted :No Audible wheezing noted :No ASSESSMENT/PLAN: 1. Acute sinusitis, recurrence not specified, unspecified location - ICD9: 461.9, ICD10: J01.90 - Will begin treatment with Doxycycline - The patient should also be given warm salt water gargles, throat lozenges and/or OTC throat spray as needed and nasal saline gtts and suction prn for the first 5-7 days of treatment. - Supportive care with plenty of fluids, rest, and analgesia prn. - Follow up in 3-5 days if symptoms persist or worsen. -Tylenol (generic acetaminophen) 500 mg-2 tabs every 8 hrs. as needed for fever and aches -Sudafed (generic is fine), behind the counter, 2x30 mg tabs twice daily as needed for congestion -Mucinex (generic is fine) 1200 mg twice daily to help with cough and to thin out mucus -http://www.choosingkenoshaly.org/pa fam-resources/antibiotics/. This link shares information about when antibiotics may help and when they may not. - Red flags discussed for need for in person care - All questions answered Diana Cannon PA-C If you let us know who your primary care provider is, we will send them a notification of today s visit through our electronic medical records system. Since not all providers have access to our notifications, we strongly encourage you to share the following record of today s visit with your primary care provider at your next visit. This will help in providing you the best care. If you do not have an established Primary Care physician and would like to continue care with a [facility] Virtual Primary Care physician, please ask your provider to place a Establish Primary Care order. Use iCurrent to manage your care, wherever you are, 28/11, on your mobile device or computer. iCurrent connects you to [employer]Plan so you can access all your health information in one place and also schedule and request virtual appointments with primary care providers. documented in this encounter [facility] 06-26-2022 Note HNO ID: [id number] Author: Renetta Judd APRN.CNP Service: ? Author Type: Nurse Practitioner Type: Progress Notes Filed: 06/26/2022 3:17 PM Note Text: Pt. Left while reviewing the chart. Fee waived. [facility] 06-26-2022 History of Present illness Narrative Pt. Left while reviewing the chart. Fee waived. documented in this encounter [facility] 04-01-2022 Note HNO ID: [id number] Author: Dejah Howard Provider Service: ? Author Type: Physician Type: Progress Notes Filed: 04/05/2022 10:05 PM Note Text: null ( ) Visit Summary for KRISTA PRICE - Gender: Female - Date of : 1990 Date: [id number] - Duration: 2 minutes Patient: KRISTA PRICE Provider: Nydia Poole Patient Contact Information Address [address] [place]; [place] [phone] Visit Topics Uti [Added By: Self - 2022-04-01] Triage Questions REQUIRED: Do you have Medicare or Medicaid Insurance?Answer [No] Do you have a cough, shortness of breath, difficulty breathing, fever, chills, headache, sore throat, muscles aches, acute change in smell or taste?Answer [No] Have you been in contact with anyone confirmed with COVID 19 or suspected of having COVID 19 within the past 14 days?Answer [No] Do you have any vulnerable family members in the home (infant, , weak immune system, lung disease, active cancer, elderly)?Answer [No] Do you have any of the following: weak immune system, asthma or chronic lung disease, kidney problems and on dialysis, active cancer, diabetes or heart disease or high blood pressure, HIV or organ transplant?Answer [Asthma] Are you currently working in a healthcare facility?Answer [No] What is the address where you are currently located? This is important in case of a medical emergency.Answer [[address] [place] [address]] Please enter a number I can contact you in the event we are disconnected.Answer [[phone]] Conversation Transcripts [Notification] Rafael Gaston, Global Staff, will help you prepare for your visit. She is assisting Nydia Poole Family Physician.[Rafael Gaston] [place], and thank you for connecting. While you are waiting for the doctor, are there any questions I can answer for you about our service? Please contact customer service if you have questions about billing, insurance, or technical issues. Visits work best with a stable WiFi connection, so please make sure you are connected before we begin.[Notification] Rafael Gaston has left the room.[Notification] You are connected with [facility].[Notification] KRISTA PRICE is located in [place].[Notification] KRISTA PRICE has shared health history...[Notification] Nydia Poole has added a prescription. Diagnosis Acute cystitis without hematuria Value: N30.00 Code: ICD-10-CM Procedures Value: [id number] Code: CPT-4 OFFICE O/P EST SF 10-19 MIN Value: [id number] Code: CPT-4 OL DIG E/M SVC 11-20 MIN Medications Prescribed Macrobid Dose : 1 capsule Strength : 100 mg Route : oral Frequency : every 12 hours. Until directed to stop. Refills : 0 Instructions to the Pharmacist : Substitutions allowed trazodone Frequency : rosuvastatin Frequency : fluoxetine Frequency : Provider Notes Clinician has verified patient location and identification[_] If patient is a minor parent/guardian and patient are both present.Mode of Communication: [_] Phone[x] VideoHistory of Present IllnessThe patient presents to discuss (describe): Onset: 31 F with dysuria past few days no fever no chillsDuration: Last UTI requiring antibiotics:obver 1 yearLMP : 2 weeks agoSymptomsBurning with urination?[x] Yes [_] NoComments: Frequency?[x] Yes [_] NoComments: Sensation of incomplete emptying?[x] Yes [_] NoComments: Gross hematuria?[_] Yes [x] NoComments: Flank pain? [_] Yes [x] NoComments (location and laterality): Fever?[_] Yes [x] NoComments: Abdominal or pelvic pain?[_] Yes [x] NoComments: Unexplained vaginal bleeding or discharge?[_] Yes [x] NoComments: Other?[_] Yes [x] NoComments: Relevant FactorsPrevious UTI's?[x] Yes [_] NoComments: History of kidney abnormalities or renal dysfunction?[_] Yes [x] NoComments: History of kidney stones within the last year?[_] Yes [x] NoComments: Recent urinary catheter?[_] Yes [x] NoComments: Past medical history:nonePast surgical history:noneSocial History:Tobacco use?[_] Yes [x] NoComments: Alcohol use?[_] Yes [x] NoComments: Recreational drug use?[_] Yes [x] NoComments: Other (describe):[_] Yes [x] NoComments: Medications: noneAllergies:pcnIs patient or nursing?[_] Yes [x] NoComments: ExaminationGeneral:i Not in any acute cardio or respiratory distress Respi: no audible wheezing or stridor Abdomen: no abdomen painAssessment(consider N30.00 acute cystitis without hematuria Plan1. Medications: a. Prescriptions:macrobid- 1st line2. Medical decision making: a. Treatment chosen because: uncomplicated cystitis3. Home care and lifestyle modifications: a. You may consider using the xfjw-rnd-adxwisv medication called phenazopyridine (such as Azo Standard, Uricalm or generic Urinary Pain Relief) for your urinary pain. Please note, this medication can cause urine to be orange in color and could discolor contact lenses. Contact lens wearers should remove (more content not included)... [facility] 09-10-2021 Note HNO ID: [id number] Author: Jona Fields APRN.CNP Service: ? Author Type: Nurse Practitioner Type: Progress Notes Filed: 09/10/2021 2:51 PM Note Text: Could not connect on Dashbook Platform. Visit cancelled. Jona Fields DNP, APRN-CNP [facility] 09-10-2021 History of Present illness Narrative Could not connect on Dashbook Platform. Visit cancelled. Jona Fields DNP, APRN-CNP documented in this encounter [facility] 09-10-2021 Note HNO ID: [id number] Author: Estelle Vela APRN.CNP Service: ? Author Type: Nurse Practitioner Type: Progress Notes Filed: 09/10/2021 11:45 AM Note Text: Telemedicine Visit - Distance Health Virtual Visit Note Patient seen on Money Forward Online platform. Location of patient: [place] History of Present Illness Krista Price is a 31 year old old female with a history of UTI symptoms for 2-3 days. Urinary symptoms ROS: urinary frequency and urinary urgency, bladder pain, low back pain , darker color Denies: fever or chills, hematuria , ofor or discharge Chance of : No Last intercourse: possible Any self-treatment attempted: No Number of previous UTI's in last 6 months:0 Number of previous UTI's in last 12 months: 0 Alleviating Factors include nothing No past medical history on file. No past surgical history on file. No family history on file. Social History Tobacco Use - Smoking status: Never Smoker - Smokeless tobacco: Never Used Substance Use Topics - Alcohol use: Not on file - Drug use: Not on file ALLERGIES Allergen Reactions - Augmentin [Amoxicil* Unknown - Caffeine Other: See Comments Hives Current Outpatient Medications Medication Sig - predniSONE (DELTASONE) 20 mg tablet Take 2 tablets by mouth once daily. - benzonatate (TESSALON PERLES) 100 mg capsule Take 1 capsule by mouth three times daily as needed for Cough. - traZODone (DESYREL) 50 mg tablet Take 50 mg by mouth daily at bedtime. - PARoxetine (PAXIL) 20 mg tablet Take 20 mg by mouth once daily. - hydrOXYzine HCl (ATARAX) 50 mg tablet Take 50 mg by mouth daily at bedtime. - Lactobacillus acidophilus (FLORAJEN) 460 mg (20 billion cell) cap Take 1 capsule by mouth once daily. (Patient not taking: Reported on 07/02/2019 ) - albuterol HFA (VENTOLIN HFA) 90 mcg/actuation inhaler Inhale 2 Puffs as instructed every 4 hours as needed for Wheezing/Shortness of Breath. (Patient not taking: Reported on 04/09/2019 ) - Desogestrel-Ethinyl Estradiol (ENSKYCE) 0.15-0.03 mg per tablet Take 1 tablet by mouth once daily. - LORazepam (ATIVAN) 1 mg tablet Take 1 mg by mouth every 6 hours as needed. - escitalopram oxalate (LEXAPRO) 10 mg tablet Take 10 mg by mouth once daily. - PHENAZOPYRIDINE HCL (AZO ORAL) Take by mouth. - citalopram (CELEXA) 20 mg tablet Take 20 mg by mouth once daily. - Desogestrel-Ethinyl Estradiol (RECLIPSEN, 28,) 0.15-30 mg-mcg per tablet Take 1 tablet by mouth once daily. No current facility-administered medications for this visit. Video Exam (Examination performed via Video enabled technology) General Appearance: 31 year old yo female in NAD; not ill or toxic appearing Abdomen: non-tender by self palpation CVA Tenderness: non-tender bilaterally by self palpation ASSESSMENT/PLAN: 1. Acute cystitis without hematuria - ICD9: 595.0, ICD10: N30.00 - NITROFURANTOIN MONOHYDRATE AND MACROCRYSTAL 100 MG ORAL CAP - Reviewed good bathroom hygiene; NO lotions, potions, bath bombs or bubble baths - Reviewed sxs that would warrant ED tx for possible kidney infection - Pt verbalized understanding - Red flags discussed for in person care and follow up - All questions answered Estelle Vela APRN.CNP If you let us know who your primary care provider is, we will send them a notification of today?s visit through our electronic medical records system. Since not all providers have access to our notifications, we strongly encourage you to share the following record of today?s visit with your primary care provider at your next visit. This will help in providing you the best care. [facility] 09-10-2021 Instructions Estelle Vela APRN.CNP - 09/10/2021 11:44 AM EDT Images from the original note were not included. Urinary Problem-When to Seek Help? Symptoms of a urinary problem may lead to a bladder infection. Women are at greater risk of a urinary tract infection than are men. Most urinary tract infections in women are caused by bacteria and involve the lower urinary tract including the bladder and urethra. Symptoms: Pain or burning when passing urine, urgency, frequency, blood in the urine, difficult emptying your bladder, and lower abdominal fullness or pressure. Common Causes: Sexual intercourse, menopause, constipation, uncontrolled diabetes, dehydration and feminine products such as tampons, and kidney stones. When to Get Help: Seek medical attention if you get frequent bladder infections, urinary concerns such as leakage, blood in the urine or frequent need to urinate. You may be recommended to get help from a specialist, such as a urologist. Diagnosis & Treatment: Lab testing may include: urinalysis, and urine culture that can be collected in the lab or walk-in clinic. Most bladder infections can easily be treated. A physician, nurse practitioner or physician dental assistant may treat with a short course of an antibiotic. Delaying treatment can lead to worsening symptoms, like a kidney infection. Self-Care: Avoid a full bladder, bubble baths, bath oils, food and beverages that may irritate the bladder such as caffeine. Avoid spermicide foam and diaphragms Void before and after sexual intercourse Wipe front to back after using the bathroom. Stay hydrated Stop Smoking Follow-up Care: Follow up testing is not needed in healthy young women if symptoms resolve. documented in this encounter [facility] 09-10-2021 History of Present illness Narrative Telemedicine Visit - Distance Health Virtual Visit Note Patient seen on [employer] platform. Location of patient: [place] History of Present Illness Krista Price is a 31 year old old female with a history of UTI symptoms for 2-3 days. Urinary symptoms ROS: urinary frequency and urinary urgency, bladder pain, low back pain , darker color Denies: fever or chills, hematuria , ofor or discharge Chance of : No Last intercourse: possible Any self-treatment attempted: No Number of previous UTI's in last 6 months:0 Number of previous UTI's in last 12 months: 0 Alleviating Factors include nothing No past medical history on file. No past surgical history on file. No family history on file. Social History Tobacco Use Smoking status: Never Smoker Smokeless tobacco: Never Used Substance Use Topics Alcohol use: Not on file Drug use: Not on file ALLERGIES Allergen Reactions Augmentin [Amoxicil* Unknown Caffeine Other: See Comments Hives Current Outpatient Medications Medication Sig predniSONE (DELTASONE) 20 mg tablet Take 2 tablets by mouth once daily. benzonatate (TESSALON PERLES) 100 mg capsule Take 1 capsule by mouth three times daily as needed for Cough. traZODone (DESYREL) 50 mg tablet Take 50 mg by mouth daily at bedtime. PARoxetine (PAXIL) 20 mg tablet Take 20 mg by mouth once daily. hydrOXYzine HCl (ATARAX) 50 mg tablet Take 50 mg by mouth daily at bedtime. Lactobacillus acidophilus (FLORAJEN) 460 mg (20 billion cell) cap Take 1 capsule by mouth once daily. (Patient not taking: Reported on 07/02/2019 ) albuterol HFA (VENTOLIN HFA) 90 mcg/actuation inhaler Inhale 2 Puffs as instructed every 4 hours as needed for Wheezing/Shortness of Breath. (Patient not taking: Reported on 04/09/2019 ) Desogestrel-Ethinyl Estradiol (ENSKYCE) 0.15-0.03 mg per tablet Take 1 tablet by mouth once daily. LORazepam (ATIVAN) 1 mg tablet Take 1 mg by mouth every 6 hours as needed. escitalopram oxalate (LEXAPRO) 10 mg tablet Take 10 mg by mouth once daily. PHENAZOPYRIDINE HCL (AZO ORAL) Take by mouth. citalopram (CELEXA) 20 mg tablet Take 20 mg by mouth once daily. Desogestrel-Ethinyl Estradiol (RECLIPSEN, 28,) 0.15-30 mg-mcg per tablet Take 1 tablet by mouth once daily. No current facility-administered medications for this visit. Video Exam (Examination performed via Video enabled technology) General Appearance: 31 year old yo female in NAD; not ill or toxic appearing Abdomen: non-tender by self palpation CVA Tenderness: non-tender bilaterally by self palpation ASSESSMENT/PLAN: 1. Acute cystitis without hematuria - ICD9: 595.0, ICD10: N30.00 - NITROFURANTOIN MONOHYDRATE & MACROCRYSTAL 100 MG ORAL CAP - Reviewed good bathroom hygiene; NO lotions, potions, bath bombs or bubble baths - Reviewed sxs that would warrant ED tx for possible kidney infection - Pt verbalized understanding - Red flags discussed for in person care and follow up - All questions answered Estelle Vela APRN.CNP If you let us know who your primary care provider is, we will send them a notification of today s visit through our electronic medical records system. Since not all providers have access to our notifications, we strongly encourage you to share the following record of today s visit with your primary care provider at your next visit. This will help in providing you the best care. documented in this encounter [facility] AP[facility] CANCELLED- Primary [facility] Diagnosis Treatment not available- Primary Procedure not carried out for other reasons [facility] Diagnosis Acute sinusitis, recurrence not specified, unspecified location- Primary documented in this encounter [facility] Summary Purpose Family History No Family History Records FoundNo Family History Records FoundNo Family History Records Found Advance Directives No Advanced Directives Records FoundNo Advanced Directives Records FoundNo Advanced Directives Records Found Additional Source Comments INFORMATION SOURCE (unrecogn ized section and content) DATE CREATED AUTHOR AUTHOR'S ORGANIZ ATION 06/29/2022 [facility] DATE CREATED AUTHOR AUTHOR'S ORGANIZ ATION 12/09/2022 [facility] Source Comments (unrecognize d section and content) In the event this informatio n is protected by the Federal Confidentiality of Alcohol and Drug Abuse Patient Records regulations: The Federal rules restrict any use of the information to criminally investigate or prosecute any alcohol or drug abuse patient.[facility] the event this information is protected by the Federal Confidentiality of Alcohol and Drug Abuse Patient Records regulations: The Federal rules restrict any use of the information to criminally investigate or prosecute any alcohol or drug abuse patient.[facility] the event this information is protected by the Federal Confidentiality of Alcohol and Drug Abuse Patient Records regulations: The Federal rules restrict any use of the information to criminally investigate or prosecute any alcohol or drug abuse patient.[facility] the event this information is protected by the Federal Confidentiality of Alcohol and Drug Abuse Patient Records regulations: The Federal rules restrict any use of the information to criminally investigate or prosecute any alcohol or drug abuse patient.[facility] Reason for Visit (unrecogniz ed section and content) Reason Comments Appointment Cancelled Reason Comments Sinusitis Reason Comments Sinus Problem Care Teams (unrecognized sec tion and content) Human Resources Records Clerk Relationship Specialty Start Date End Date Mykel Lewis MD [address] [facility] [address] [place], [place] [id number] PCP - General Family Practice 11/06/18 Human Resources Records Clerk Relationship Specialty Start Date End Date [facility]kel Lewis MD [address] [facility] [address] [place], [place] [id number] PCP - General Family Medicine 11/06/18 Human Resources Records Clerk Relationship Specialty Start Date End Date Mykel Lewis MD [address] [facility] [address] [place] [address] PCP - General Family Medicine 11/06/18 FOR RECORDS PERTAINING TO PATIENTS WHO ARE OR HAVE BEEN ENROLLED IN A CHEMICAL DEPENDENCY/SUBSTANCEABUSE PROGRAM, SOME INFORMATION MAY BE OMITTED. This clinical summary was aggregated from multiple sources. Caution should be exercised in using it in the provision of clinical care. This summary normalizes information from multiple sources, and as a consequence, information in this document may materially change the coding, format and clinical context of patient data. In addition, data may be omitted in some cases. CLINICAL DECISIONS SHOULD BE BASED ON THE PRIMARY CLINICAL RECORDS. [employer] provides no warranty or guarantee of the accuracy or completeness of information in this document.
== END | disposition home or self-care (01) ==
LOC: PAVLAB 09:36
PROVIDERS: PCP Family Medicine; Referring Provider Obstetrics & Gynecology; Visit Provider Obstetrics & Gynecology
DX: E78.5 Hyperlipidemia, unspecified (principal)
CPT/HCPCS: 36415; 80061

== ENCOUNTER 2024-03-13 17:44 | Emergency (ER) | payer BC, SELFPAY ==
[2024-03-13 17:44] VITALS: BP 117/62; PULSE 103; RESP 18; TEMP 36.6; O2SAT 99; BMI 31.6
[2024-03-13 17:47] VITALS: BP 117/62; PULSE 103; RESP 18; TEMP 36.6; O2SAT 99
[2024-03-13 18:47] VITALS: BP 124/92; PULSE 92; RESP 16; TEMP 37.2; O2SAT 99
[2024-03-13 19:00] VITALS: BP 120/70; PULSE 87; RESP 18; TEMP 37.2; O2SAT 99
[2024-03-13 19:31] LABS: Absolute Lymphocyte Count 1.74 X10^3/uL (0.83-4.51); Absolute Neutrophil Count 14.8 X10^3/uL (2.0-7.7); Basophil# 0.07 X10^3/uL; Basophil% 0.4 % (0-1); Eosinophil# 0.12 X10^3/uL; Eosinophils% 0.7 % (0-5); Hematocrit 40.7 % (37-47); Lymphocyte # 1.74 X10^3/ul (0.83-4.51); Lymphocyte % 9.9 % (19-41); Mean Corp Hgb Conc 34.4 g/dL (32-36); Mean Corpuscular Hgb 29.2 pg (27.0-32.0); Mean Platelet Vol. 10.1 fl (6.2-12.0); Monocyte# 0.75 X10^3/uL; Monocyte% 4.3 % (0-10); NRBC Flagged by Analyzer 0 % (0-5); Neutrophil # 14.84 X10^3/uL (2.7-7.7); Neutrophil % 84.1 % (47-70); Platelet Count 338 K/mm3 (150-450); RBC Distribution Width SD 43.3 fl (35.1-43.9); Red Blood Count 4.79 M/mm3 (4.2-5.4); White Blood Count 17.6 K/mm3 (4.4-11.0)
[2024-03-13 19:42] LABS: Internal QC Validated? YES +Cl - CLEAR BKGD; Pregnancy, Serum, hCG Quali. NEGATIVE Negative
[2024-03-13 19:50] LABS: ALB/GLOB Ratio 0.8 RATIO (0.9-2.4); AST(SGOT) 21 U/L (15-37); Alanine Aminotransfer ALT/SGPT 35 U/L (13-56); Albumin, Serum 3.7 g/dL (3.2-5.0); Alkaline Phosphatase 114 U/L (45-117); Anion Gap 9 (5-15); BUN 10 mg/dL (7-18); Calcium,Total 9.6 mg/dL (8.5-10.1); Chloride 110 mmol/L (98-107); Creatinine, Serum 0.83 mg/dL (0.55-1.02); EST Glomerular Filtration Rate 83 mL/min (>60); Est Glom Filt Rate - Afr Amer 101 mL/min (>60); Estimated Creatinine Clearance 100.01 ml/min; Globulin 4.8 g/dL (2.2-4.2); Glucose 132 mg/dL (74-106); Potassium 3.5 mmol/L (3.5-5.1); Protein, Total 8.5 g/dL (6.4-8.2); Sodium Level 141 mmol/L (136-145)
[2024-03-13 21:37] LABS: Mucous, Urine 0 SEEN /hpf (<or=2+)
[2024-03-13 21:39] LABS: Color, Urine Yellow (Yellow); Glucose, Dipstick Normal (Normal); Ketone-Dipstick 50 mg/dl (Negative); Leukocyte Esterase-Dipstick 25 /ul (Negative); Nitrite-Dipstick Negative (Negative); Occult Blood-Urine 250 /ul (Negative); Protein-Dipstick 30 mg/dl (Negative); Specific Gravity, Urine 1.015 (1.002-1.030); Urine Bilirubin Dipstick Negative (Negative); Urine Clarity Sl. Cloudy (Clear); Urine Urobilinogen Normal (Normal); Urine pH 6.5 (5.0 - 8.0)
[2024-03-13 21:42] VITALS: BP 102/62; PULSE 67; RESP 18; O2SAT 99
[2024-03-13 21:50] LABS: Bacteria RARE /hpf (None Seen); Red Blood Cells-Urine 25-50 SEEN /hpf (0-5); Renal Epithelial Cells 0-5 SEEN /hpf (0-5); Squamous Epithelial Cells - UA 0-5 SEEN /hpf (5-10); White Blood Cells 0-5 SEEN /hpf (0-5)
[2024-03-13 22:50] VITALS: BP 110/80; PULSE 62; RESP 18; TEMP 36.8; O2SAT 99
== END 2024-03-13 22:57 | disposition home or self-care (01) ==
PROVIDERS: Emergency Provider Emergency Medicine; PCP Family Medicine; Visit Provider Emergency Medicine
DX: N20.1 Calculus of ureter (principal); R10.9 Unspecified abdominal pain; R68.83 Chills (without fever); N13.30 Unspecified hydronephrosis; F32.A Depression, unspecified; F41.9 Anxiety disorder, unspecified
CPT/HCPCS: 74176; 80053; 81001; 84703; 85025; 99283; A4216

== ENCOUNTER 2024-03-14 12:27 | Observation (INO) | payer BC, SELFPAY ==
[2024-03-14 12:28] VITALS: BP 141/95; PULSE 102; RESP 18; TEMP 36.6; O2SAT 99; BMI 31.4
[2024-03-14] MEDS: Ondansetron 4 MG/2 ML Vial IV ×2 (13:12→21:01)
[2024-03-14] MEDS: Morphine 4 MG/ML Syringe IV (13:12)
[2024-03-14] MEDS: Ketorolac 30 MG/ML Syringe IV (13:12)
[2024-03-14] MEDS: 0.9% Normal Saline (1000mL) 1,000 ML 999 ML IV (13:12)
[2024-03-14 13:25] LABS: Absolute Lymphocyte Count 1.39 X10^3/uL (0.83-4.51); Absolute Neutrophil Count 16.9 X10^3/uL (2.0-7.7); Basophil# 0.06 X10^3/uL; Basophil% 0.3 % (0-1); Eosinophil# 0.02 X10^3/uL; Eosinophils% 0.1 % (0-5); Hemoglobin 13.2 g/dL (12.0-15.0); Lymphocyte # 1.39 X10^3/ul (0.83-4.51); Lymphocyte % 7.2 % (19-41); Mean Corp Hgb Conc 34.7 g/dL (32-36); Mean Corpuscular Hgb 29.5 pg (27.0-32.0); Mean Platelet Vol. 10.9 fl (6.2-12.0); Monocyte# 0.73 X10^3/uL; Monocyte% 3.8 % (0-10); NRBC Flagged by Analyzer 0 % (0-5); Neutrophil # 16.93 X10^3/uL (2.7-7.7); Neutrophil % 88.1 % (47-70); POSITIVE COUNT YES; RBC Distribution Width CV 14.3 % (11.6-14.6); Red Blood Count 4.47 M/mm3 (4.2-5.4); White Blood Count 19.2 K/mm3 (4.4-11.0)
[2024-03-14 13:27] LABS: Anion Gap 9 (5-15); BUN 11 mg/dL (7-18); BUN/Creat Ratio 11.9 RATIO (10-20); Calcium,Total 9.4 mg/dL (8.5-10.1); Chloride 109 mmol/L (98-107); Creatinine, Serum 0.93 mg/dL (0.55-1.02); EST Glomerular Filtration Rate 73 mL/min (>60); Est Glom Filt Rate - Afr Amer 89 mL/min (>60); Estimated Creatinine Clearance 88.89 ml/min; Glucose 122 mg/dL (74-106); Potassium 3.7 mmol/L (3.5-5.1); Sodium Level 139 mmol/L (136-145)
[2024-03-14 13:53] LABS: Differential Indicated SCAN CRITERIA MET
[2024-03-14 13:54] LABS: Platelet Estimate ADEQUATE (ADEQ)
[2024-03-14 13:55] LABS: Internal QC Validated? YES +Cl - CLEAR BKGD; Pregnancy, Serum, hCG Quali. NEGATIVE Negative
[2024-03-14 14:28] VITALS: BP 136/84; PULSE 77; RESP 18; O2SAT 99
[2024-03-14 14:40] LABS: Squamous Epithelial Cells - UA 0 SEEN /hpf (5-10); White Blood Cells 0 SEEN /hpf (0-5)
[2024-03-14 15:00] LABS: Color, Urine Yellow (Yellow); Glucose, Dipstick Normal (Normal); Leukocyte Esterase-Dipstick Negative /ul (Negative); Nitrite-Dipstick Negative (Negative); Occult Blood-Urine 150 /ul (Negative); Protein-Dipstick 30 mg/dl (Negative); Specific Gravity, Urine 1.025 (1.002-1.030); Urine Bilirubin Dipstick Negative (Negative); Urine Clarity Clear (Clear); Urine Urobilinogen Normal (Normal)
[2024-03-14 15:29] LABS: Ketone-Dipstick 150 mg/dl (Negative)
[2024-03-14 15:44] LABS: Bacteria RARE /hpf (None Seen); Mucous, Urine 1+ /hpf (<or=2+); Red Blood Cells-Urine 0-5 SEEN /hpf (0-5)
[2024-03-14 16:00] VITALS: PULSE 84; RESP 16; O2SAT 97
[2024-03-14] MEDS: 0.9% Normal Saline (1000mL) 1,000 ML 250 ML IV (16:15)
[2024-03-14 16:17] VITALS: BP 133/81; PULSE 87; RESP 18; TEMP 36.7; O2SAT 98
[2024-03-14 17:08] VITALS: BMI 31.4
[2024-03-14 17:11] VITALS: BP 122/67; PULSE 87; RESP 18; TEMP 36.7; O2SAT 98
[2024-03-14] MEDS: oxyCODONE 5 MG Tablet 10 MG PO (18:17)
[2024-03-14 21:00] VITALS: BP 129/74; PULSE 90; RESP 16; TEMP 36.9; O2SAT 99
[2024-03-14] MEDS: Acetaminophen 500 MG Tablet 1000 MG PO (21:03)
[2024-03-14] MEDS: Ketorolac 15 MG/ML Vial IV (23:35)
[2024-03-15] VITALS (12 sets, daily range): BP systolic 110–138; BP diastolic 65–93; PULSE 70–95; RESP 15–18; TEMP 36.4–37.1; O2SAT 96–100; BMI 31.4
[2024-03-15] MEDS: Ciprofloxacin 400 MG/200 ML BAG 200 MG IV (12:13)
[2024-03-15] MEDS: Acetaminophen 500 MG Tablet 1000 MG PO (14:48)
[2024-03-21 22:07] LABS: Ca Oxalate, Dihydrate 20 % (.); Ca Oxalate, Monohydrate 60 % (.); Calcium Phosphate (hydroxyl) 20 % (.); Size 3x2 mm (.)
== END 2024-03-15 17:13 | disposition home or self-care (01) ==
LOC: ED 16:02 → MS3 03-15 06:16
PROVIDERS: Admitting Provider Urology; Emergency Provider Emergency Medicine; PCP Family Medicine; Referring Provider Emergency Medicine; Visit Provider Urology
PROC: 0TJ98ZZ Inspection of Ureter, Via Natural or Artificial Opening Endoscopic (ICD-10-PCS; CPT 52352; principal; 2024-03-15 11:50)
DX: N20.2 Calculus of kidney with calculus of ureter (principal); E86.0 Dehydration; J45.909 Unspecified asthma, uncomplicated
CPT/HCPCS: 52356; 00918; 74018; 76000; 80048; 81001; 82360; 84703; 85025; 88300; 96361; 96374; 96375; 96376; 99221; 99284; J7030; J7120; A4216; G0378; J0744; J2405

== ENCOUNTER → 2024-09-27 | Outpatient (CLI) | payer OTHER, SELFPAY ==
--- NOTE | 2024-09-27 12:42 | RAD_ITS ---
EXAM: XR Left Foot Complete, 3 or More Views CLINICAL INDICATION: FOOT INJURY TECHNIQUE: Frontal, lateral and oblique views of the left foot. COMPARISON: No relevant prior studies available. FINDINGS: BONES/JOINTS: Mild degenerative changes of the intertarsal joints. SOFT TISSUES: Soft tissue swelling without acute fracture. No radiopaque foreign body. RAD/Foot min 3 Views IMPRESSION: 1. Soft tissue swelling without acute fracture. 2. If symptoms persist, further evaluation with CT is recommended. Reading Location[facility]
== END | disposition home or self-care (01) ==
LOC: MTRAD 12:40
PROVIDERS: PCP Family Medicine; Referring Provider Physician Assistant Surgical; Visit Provider Physician Assistant Surgical
DX: S99.929A Unspecified injury of unspecified foot, initial encounter (principal)
CPT/HCPCS: 73630

== ENCOUNTER → 2025-03-26 | Outpatient (CLI) | payer OTHER, SELFPAY ==
--- NOTE | 2025-03-26 14:45 | BI_ITS ---
EXAM: SCRN MAMM (CAD)W/JANIE BILAT DATE: 03/26/2025 CLINICAL HISTORY: F, Age 34 y/o , SCREEN FOR BREAST CANCER Mother with breast cancer. Grandmother with breast cancer. TECHNIQUE: Procedure Code: [id number] Modality: MG Procedure: SCRN MAMM (CAD)W/JANIE BILAT COMPARISON: Baseline mammogram. FINDINGS: TISSUE DENSITY: The breasts are extremely dense, which lowers the sensitivity of mammography. Bilateral Breast Mammographic Findings: No significant masses, calcifications or other abnormalities are identified. No suspicious masses, areas of developing architectural distortion, or suspicious calcifications. BI/SCRN MAMM (CAD)W/JANIE BILAT IMPRESSION: Unremarkable baseline screening mammogram. OVERALL FINAL ASSESSMENT BI-RADS 1: NEGATIVE. RECOMMENDATION: Routine annual follow-up in 1 Year Additional Recommendation none A letter with findings and recommendations will be mailed to the patient. Reading Location: [id number]
== END | disposition home or self-care (01) ==
LOC: OPBI 14:36
PROVIDERS: PCP Family Medicine; Referring Provider Nurse Practitioner Family; Visit Provider Nurse Practitioner Family
DX: Z12.31 Encounter for screening mammogram for malignant neoplasm of breast (principal); Z80.3 Family history of malignant neoplasm of breast
CPT/HCPCS: 77063; 77067

== ENCOUNTER → 2025-04-26 | Outpatient (CLI) | payer OTHER, SELFPAY ==
--- OUTSIDE RECORDS SUMMARY | 2025-04-26 09:43 | XMS RPT_ITS | CCD ---
Author Organization [facility] Providers Care Heating And Ventilation Engineer Name Role Phone EARL AMBROSE Unavailable Unavailable EARL AMBROSE Unavailable Unavailable Mykel Montoya MD Primary Care Provider Mykel Montoya MD Primary Care Provider Dr. Mykel Montoya Primary Care Provider Dr. Mykel Montoya Referring Provider Dr. Cassia Brown Attending Provider VALENTINA Rhodes Attending Provider VALENTINA Moreno Attending Provider Colby [employer]NSHIP, DIETARY INTERNSHIP-C Tracy Attending Provider TRACY BOWMAN Referring Unavailable TRACY BOWMAN Attending Unavailable MYKEL MONTOYA Primary Care Unavailable Dr. Mykel Montoya Primary Care Provider [phone] Mykel Montoya Referring Provider Dr. Cassia Brown Attending Provider VALENTINA Rhodes Attending Provider Dr. Mykel Montoya Referring Provider Dr. Cassia Brown Attending Provider VALENTINA Rhodes Attending Provider Dr. Mykel Montoya Primary Care Provider Colby [employer]NS[employer], DIETARY INTERNSHIP-C Tracy Attending Provider Dr. Lily Duran Attending Provider VALENTINA Rhodes Other Provider Dr. Lily Duran Admit Provider Dr. Lily Duran Other Provider Dr. Mykel Montoya MD Primary Care Provider Dr. Mykel Montoya MD Referring Provider Ziyad DIETARY INTERNSHIP-C, Pamela Attending Provider Alon JUAREZ, Jaxon Attending Provider [phone] Jaxon Cohen Referring Provider Mykel Montoya MD Primary Care Provider Alon JUAREZ, Jaxon Attending Unavailable Alon JUAREZ, Jaxon Referring Unavailable Montoya, Mykel Primary Care Unavailable Montoya, Mykel Referring Unavailable Dayanna Perkins Attending Unavailable Montoya, Mykel Primary Care Unavailable Montoya, Mykel Referring Unavailable Alon JUAREZ, Jaxon Attending Unavailable Montoya, Mykel Primary Care Unavailable Pamela Lackey Attending Unavailable Montoya, Mykel Primary Care Unavailable Montoya, Mykel Referring Unavailable Montoya, Mykel Primary Care Unavailable Remington Buckley Referring Unavailable Francoise Velez Admitting Unavailable Francoise Velez Attending Unavailable Montoya, Mykel Primary Care Unavailable Assessment, Health Risk Attending Unavaila ble Assessment, Health Risk Referring Unavaila ble Montoya, Mykel Primary Care Unavailable Jordon Astudillo Attending Unavailable MONTOYA, MYKEL R Primary Care Unavailable MONTOYA, MYKEL R Primary Care Unavailable JACKELYN MADDEN Attending Unavailable MONTOYA, MYKEL Moody Primary Care Unavailable JULI MORALES Attending Unavailable Allergies Allergy Classification Reported Allergen(s) Allergy Type Date of Onset Reaction(s) Facility (6 sources) Amoxicillin / Clavulanate; Translations: [AMOXICILLIN-PO T CLAVULANATE] Drug Allergy 5 Unknown [facility] (19 sources) Caffeine; Translations: [CAFFEINE] Drug Allergy 5 Other: See Comments [facility] (3 sources) Penicillins; Translations: [PENICILLINS] Drug Intolerance 2 GI Upset [facility] Work Phone: (14 sources) Amoxicillin; Translations: [amoxicillin trihydrate] Drug Allergy 7 Unknown [facility] Comment on above: as a kid (14 sources) potassium clavulanate; Translations: [potassium clavulanate] Propensity to adverse reactions 7 Unknown [facility] (2 sources) Penicillins Drug Intolerance 2 GI Upset [facility] Work Phone: (1 source) Penicillins Drug Intolerance 2 GI Upset [facility] Work Phone: (1 source) Caffeine Drug Allergy 5 [facility] Repository Medications Current Medications Medication Drug Class(es) Dates Sig (Normalized) Sig (Original) [id number] 200 actuat albuterol 0.09 mg/actuat metered dose inhaler (18 sources) beta2-Adrenergic Agonist Start: 08-13-2018 take 2 puff(s) by inhalation every four hours as needed for wheezing albuterol HFA (VENTOLIN HFA) 90 mcg/actuation inhaler Indications: Acute viral bronchitis Inhale 2 Puffs as instructed every 4 hours as needed for Wheezing/Shortnes s of Breath. 1 Inhaler 08/13/2018 Active Start: 04-21-2017 End: 09-01-2022 Albuterol Sulfate 1 INHALER inhaler Discontinued 1 - 2 NMA INHALATION EVERY 4 HOURS NEEDED as needed for Wheezing April 21, 2017 1:00am September 01, 2022 9:15am Start: 04-21-2017 End: 09-01-2022 take 1 puff(s) by inhalation every four hours as needed Albuterol Sulfate Discontinued 1 - 2 PUFF INHALATION EVERY 4 HOURS NEEDED April 21, 2017 12:00am September 01, 2022 8:15am Comment on above: Inhale 2 Puffs as in structed every 4 hours as needed for Wheezing/Shortness of Breath. benzonatate 100 mg oral capsule (5 sources) Non-narcotic Antitussive Start: 05-19-19 21 take 1 capsule by mouth three times daily as needed for cough benzonatate (TESSALON PERLES) 100 mg capsule Indications: Bronchitis Take 1 capsule by mouth three times daily as needed for Cough. 24 capsule 05/19/2020 Active Comment on above: Take 1 capsule by [facility] three times daily as needed for Cough. citalopram 20 mg oral tablet (5 sources) Serotonin Reuptake Inhibitor take 1 tablet by mouth once daily citalopram (CELEXA) 20 mg tablet Take 20 mg by mouth once daily. Active Comment on above: Take 20 mg by mouth once daily. Desogestrel-Ethinyl Estradiol (20 sources) Progestin, Estrogen Start: 08-15-19 take 0.15 tablet by mouth once daily Desogestrel-Ethiny l Estradiol (Enskyce) 0.15-0.03 mg tablet Active 1 {tbl} PO DAILY August 14, 2024 3:07pm Start: 07-31-2024 End: 08-14-2024 take 0.15 tablet by mouth once daily Desogestrel-Ethinyl Estradiol (Enskyce) 0.15-0.03 mg tablet Discontinued 1 {tbl} PO DAILY July 31, 2024 11:58am August 14, 2024 3:08pm Start: 06-12-2024 End: 07-31-2024 take 0.15 tablet by mouth once daily Desogestrel-Ethinyl Estradiol (Enskyce) 0.15-0.03 mg tablet Discontinued 1 {tbl} PO DAILY June 12, 2024 5:01pm July 31, 2024 11:58am Start: 05-17-2023 End: 06-12-2024 take 0.15 tablet by mouth once daily Desogestrel-Ethinyl Estradiol (Enskyce) 0.15-0.03 mg tablet Discontinued 1 {tbl} PO DAILY May 17, 2023 1:00am June 12, 2024 5:01pm Start: 04-25-2015 Desogestrel-Et hinyl Estradiol Active 1 EACH PO DAILY April 25, 2015 8:16pm Start: 04-25-2015 End: 09-01-2022 Desogestrel-Ethinyl Estradio l 1 EACH tablet Discontinued 1 NMA PO DAILY April 25, 2015 1:00am September 01, 2022 9:15am Start: 04-25-2015 End: 09-01-2022 Desogestrel-Ethinyl Estradio l Discontinued 1 EACH PO DAILY April 25, 2015 12:00am September 01, 2022 8:15am Start: 04-25-2015 End: 09-01-2022 Desogestrel-Ethinyl Estradio l Discontinued 1 EACH PO DAILY April 25, 2015 1:00am September 01, 2022 9:15am Start: 04-25-2015 Desogestrel-Et hinyl Estradiol Active 1 EACH PO DAILY April 25, 2015 12:00am take 1 tablet by cl th once daily Desogestrel-Ethinyl Estradiol (RECLIPSEN, 28,) 0.15-30 mg-mcg per tablet Take 1 tablet by mouth once daily. Active take 1 tablet by lc th once daily, then take 0.15 tablet by mouth once Desogestrel-Ethinyl Estradiol (ENSKYCE) 0.15-0.03 mg per tablet Take 1 tablet by mouth once daily. Active take 1 tablet by cl th once daily Desogestrel-Ethinyl Estradiol (RECLIPSEN, 28,) 0.15-30 mg-mcg per tablet Take 1 tablet by mouth once daily. 0 Active take 1 tablet by cl th once daily, then take 0.15 tablet by mouth once Desogestrel-Ethinyl Estradiol (ENSKYCE) 0.15-0.03 mg per tablet Take 1 tablet by mouth once daily. 0 Active Comment on above: Take 1 tablet by cl th once daily. doxycycline monohydrate 100 mg oral capsule (1 source) Tetracycline-class Drug Start: End: take 1 capsule by mouth twice daily doxycycline monohydrate (MONODOX) 100 mg capsule Take 1 capsule by mouth twice daily for 5 days. 10 capsule 0 06/28/2022 07/03/2022 Active Comment on above: Take 1 capsule by mo [facility] twice daily for 5 days. escitalopram 10 mg oral tablet (5 sources) Serotonin Reuptake Inhibitor take 1 tablet by mouth once daily escitalopram oxalate (LEXAPRO) 10 mg tablet Take 10 mg by mouth once daily. Active Comment on above: Take 10 mg by mouth once daily. hydrOXYzine hydrochloride 50 mg oral tablet (6 sources) Antihistamine Start: take 1 tablet by mouth at bedtime Hydroxyzine Hcl 50 mg tablet Active 50 mg PO AT BEDTIME August 14, 2024 12:00am Comment on above: Take 50 mg by mouth daily at bedtime. lactobacillus acidophilus 460 mg oral capsule (5 sources) Start: take 1 capsule by mouth once daily Lactobacillus acidophilus (FLORAJEN) 460 mg (20 billion cell) cap Indications: Viral gastroenteritis Take 1 capsule by mouth once daily. 30 capsule 04/09/2019 Active Comment on above: Take 1 capsule by [facility] once daily. loratadine 10 mg oral tablet (1 source) Start: take 1 tablet by mouth once daily Loratadine (Allergy Relief (Loratadine)) 10 mg tablet Active 10 mg PO DAILY March 14, 2024 1:00am PARoxetine hydrochloride 20 mg oral tablet (5 sources) Serotonin Reuptake Inhibitor Start: take 1 tablet by mouth once daily PARoxetine (PAXIL) 20 mg tablet Take 20 mg by mouth once daily. 11/24/2019 Active Comment on above: Take 20 mg by mouth once daily. predniSONE 20 mg oral tablet (18 sources) Start: take 2 tablets by mouth once daily predniSONE (DELTASONE) 20 mg tablet Indications: Bronchitis Take 2 tablets by mouth once daily. 10 tablet 05/19/2020 Active Start: 04-21-2017 End: 09-01-2022 take 3 tablets by mouth once daily at mealtime Prednisone 20 MG tablet Discontinued 60 mg PO DAILY April 21, 2017 1:00am September 01, 2022 9:15am With food Start: 04-21-2017 End: 09-01-2022 take 60 mg by mouth once daily at mealtime Prednisone Discontinued 60 MG PO DAILY April 21, 2017 12:00am September 01, 2022 8:15am With food Comment on above: Take 2 tablets by [facility] once daily. rosuvastatin calcium 5 mg oral tablet (1 source) HMG-CoA Reductase Inhibitor Start: take 1 tablet by mouth once daily Rosuvastatin 5 mg tablet Active 5 mg PO DAILY May 17, 2023 1:00am sulfamethoxazole 800 mg / trimethoprim 160 mg oral tablet (1 source) Dihydrofolate Reductase Inhibitor Antibacterial, Sulfonamide Antimicrobial Start: Sulfamethoxazole-Tr imethoprim 800-160 mg tablet Active 1 {tbl} PO TWICE A DAY 6 3 March 15, 2024 1:00am traZODone hydrochloride 50 mg oral tablet (5 sources) Serotonin Reuptake Inhibitor Start: 08-04-2 020 take 1 tablet by mouth once daily at bedtime traZODone (DESYREL) 50 mg tablet Take 50 mg by mouth daily at bedtime. 12/10/2019 Active Comment on above: Take 50 mg by mouth daily at bedtime. Completed/Discontinued Medications Medication Drug Class(es) Dates Sig (Normalized) Sig (Original) acetaminophen 325 mg / HYDROcodone bitartrate 5 mg oral tablet (1 source) Opioid Agonist Start: 03-13-2024 End: 03-14-2024 Hydrocodone-Acetami nophen 5-325 mg tablet Discontinued 1 {tbl} PO EVERY 6 HOURS NEEDED as needed for Pain 02 07March 13, 2024 March 14, 2024 2:18pm acetaminophen 325 mg / oxyCODONE hydrochloride 5 mg oral tablet (7 sources) Opioid Agonist Start: 03-15-2024 End: 08-14-2024 Oxycodone-Acetamino phen (Percocet) 5-325 mg tablet Discontinued 1 {tbl} PO Q8H as needed for pain 02 07March 15, 2024 August 14, 2024 2:35pm Start: 03-28-2023 End: 04-11-2023 Oxycodone-Acetaminophen (Per cocet) 5-325 mg tablet Discontinued 1 {tbl} PO EVERY 6 HOURS as needed for pain 24 11March 30, 2023 April 11, 2023 4:06pm cholecalciferol 0.05 mg oral capsule (10 sources) Vitamin D Start: 09-01-2022 End: 05-17-2023 take 1 capsule by mouth once daily Cholecalciferol (Vitamin D3) 50 mcg (2,000 unit) capsule Discontinued 50 ug PO DAILY September 01, 2022 12:00am May 17, 2023 4:39pm docosahexaenoic acid 200 mg oral capsule (10 sources) Start: 09-01-2022 End: 05-17-2023 Docosahexaenoic Acid ( Dha) 200 mg capsule Discontinued mg PO September 01, 2022 12:00am May 17, 2023 4:39pm doxylamine succinate 25 mg oral tablet (10 sources) Start: 09-01-2022 End: 03-26-2023 take 1 tablet by mouth at bedtime as needed Doxylamine Succinate (Unisom (Doxylamine)) 25 mg tablet Discontinued 25 mg PO AT BEDTIME as needed September 01, 2022 12:00am March 26, 2023 1:08pm famotidine 20 mg oral tablet (5 sources) Histamine-2 Receptor Antagonist Start: 01-07-2023 End: 05-17-2023 take 1 tablet by mouth once daily Famotidine (Pepcid) 20 mg tablet Discontinued 20 mg PO DAILY January 07, 2023 12:00am May 17, 2023 4:39pm FLUoxetine 40 mg oral capsule (20 sources) Serotonin Reuptake Inhibitor Start: 04-11-2023 End: 08-14-2024 take 1 capsule by mouth once daily Fluoxetine 40 mg capsule Discontinued 40 mg PO DAILY August 14, 2024 3:07pm August 14, 2024 4:39pm Start: 11-15-2022 End: 11-15-2022 take 10 mg by mouth once daily Fluoxetine 20 mg capsul e Discontinued 10 mg PO DAILY November 15, 2022 2:05pm November 15, 2022 2:14pm Start: 11-15-2022 End: 11-15-2022 take 10 mg by mouth once daily Fluoxetine Discontinued 10 MG PO DAILY November 15, 2022 1:05pm November 15, 2022 1:14pm Start: 09-01-2022 End: 11-15-2022 take 1 capsule by mouth once daily Fluoxetine 20 mg capsule Discontinued 20 mg PO DAILY September 01, 2022 12:00am November 15, 2022 2:06pm LORazepam 1 mg oral tablet (18 sources) Benzodiazepine Start: 04-21-2017 End: 09-01-2022 Lorazepam 1 MG tablet Discontinued 1 mg PO NEEDED as needed for Anxiety April 21, 2017 1:00am September 01, 2022 9:15am Comment on above: Take 1 mg by mouth e very 6 hours as needed. naproxen 500 mg oral tablet (6 sources) Nonsteroidal Anti-inflammatory Drug Start: 03-28-2023 End: 04-11-2023 take 1 tablet by mouth twice daily as needed for pain Naproxen 500 mg tablet Discontinued 500 mg PO TWICE DAILY NEEDED as needed for Pain March 30, 2023 1:00am April 11, 2023 4:05pm NIFEdipine 30 mg osmotic 24 hr extended release oral tablet (3 sources) Dihydropyridine Calcium Channel Maryse Start: 03-30-2023 End: 05-17-2023 take 1 tablet by mouth once daily Nifedipine (Procardia Xl) 30 mg tablet extended release 24hr Discontinued 30 mg PO DAILY March 30, 2023 1:00am May 17, 2023 4:58pm nitrofurantoin, macrocrystals 25 mg / nitrofurantoin, monohydrate 75 mg oral capsule (14 sources) Nitrofuran Antibacterial Start: 04-16-2018 End: 09-01-2022 take 1 capsule by mouth twice daily at mealtime Nitrofurantoin Monohyd/M-Cryst (Macrobid) 100 mg capsule Discontinued 100 mg PO TWICE A DAY April 16, 2018 1:00am September 01, 2022 9:15am must administer with a meal/food Comment on above: Take 1 capsule by mo ut twice daily for 5 days. ondansetron 4 mg disintegrating oral tablet (3 sources) Serotonin-3 Receptor Antagonist Start: 03-30-2023 End: 03-14-2024 take 1 tablet by mouth every eight hours as needed for nausea and vomiting Ondansetron 4 mg tablet,disintegrati ng Discontinued 4 mg PO Q8H as needed for nausea and vomiting March 30, 2023 1:00am March 14, 2024 2:17pm phenazopyridine hydrochloride 200 mg oral tablet (6 sources) Start: 03-15-2024 End: 08-14-2024 take 1 tablet by mouth three times daily as needed for muscle spasms Phenazopyridine (Pyridium) 200 mg tablet Discontinued 200 mg PO 3 TIMES DAILY NEEDED as needed for Bladder Spasms 04 12March 15, 2024 1:00am August 14, 2024 2:35pm PHENAZOPYRIDINE HCL (AZO ORAL) Take by mouth. Active PHENAZOPYRIDINE HCL (AZO ORAL) Take by mouth. 0 Active Comment on above: Take by mouth. sertraline 50 mg oral tablet (10 sources) Serotonin Reuptake Inhibitor Start: 03-01-2023 End: 04-11-2023 Sertraline (Zoloft) 50 mg tablet Discontinued 75 mg PO DAILY 135 90 March 01, 2023 12:06pm April 11, 2023 4:12pm Start: 11-15-2022 End: 03-01-2023 take 1 tablet by mouth once daily Sertraline (Zoloft) 50 mg tablet Discontinued 50 mg PO DAILY November 15, 2022 12:00am March 01, 2023 12:07pm vortioxetine 10 mg oral tablet (13 sources) Start: 04-21-2017 End: 09-01-2022 take 1 tablet by mouth once daily Vortioxetine 10 MG tablet Discontinued 10 mg PO DAILY April 21, 2017 1:00am September 01, 2022 9:15am Problems Active Problems Problem Classification Problem Date Documented Date Episodic/Chronic Anxiety disorders (20 sources) Anxiety; Translations: [Anxiety disorder, unspecified] 09-01-2022 Chronic Comment on above: prozac, counseling fluoxetine Calculus of urinary tract (2 sources) Ureteric stone; Translations: [Calculus of ureter] 03-21-2024 Episodic Contraceptive and procreative management (2 sources) Patient encounter status; Translations: [Encounter for contraceptive management, unspecified] 08-14-2024 Episodic Disorders of lipid metabolism (20 sources) Hyperlipidemia; Translations: [Hyperlipidemia, unspecified] 09-01-2022 Chronic Comment on above: on statin, recheck i n 6 months to ensure ocp is safe. monitor bps off procardia now Fluid and electrolyte disorders (1 source) Dehydration; Translations: [Dehydration] 03-21-2024 Episodic Genitourinary symptoms and ill-defined conditions (20 sources) Dysuria; Translations: [Dysuria] 04-16-2018 Episodic Comment on above: urine culture sent t [facility] Hemorrhage during ; abruptio placenta; placenta previa (18 sources) Threatened miscarriage; Translations: [Threatened ] 09-01-2022 Episodic Hypertension complicating ; childbirth and the puerperium (9 sources) Mild pre-eclampsia; Translations: [Mild to moderate pre-eclampsia, unspecified trimester] 03-26-2023 Episodic Comment on above: procardia prescribed PP, home bp monitoring fu in 1 week Inflammation; infection of eye (except that caused by tuberculosis or sexually transmitteddisease) (1 source) Viral conjunctivitis, unspecified; Translations: [Viral conjunctivitis] Onset: 03-11-2025 Episodic Malposition; malpresentation (9 sources) Breech presentation; Translations: [Maternal care for breech presentation, not applicable or unspecified] 03-26-2023 Episodic Comment on above: CS for presentation. Menstrual disorders (10 sources) Amenorrhea; Translations: [Amenorrhea, unspecified] 08-24-2022 Chronic Comment on above: HCGx2 Other circulatory disease (4 sources) Elevated blood-pressure reading without diagnosis of hypertension; Translations: [Elevated blood-pressure reading, without diagnosis of hypertension] 03-26-2023 Episodic Comment on above: PEC labs sent. BP 14 0s/80-90s, denies ruiz/visual changes/ruq painP:C 370 Other circulatory disease (3 sources) Elevated blood-pressure reading, without diagnosis of hypertension; Translations: [Elevated blood pressure reading without diagnosis of hypertension] 03-26-2023 Episodic Other complications of ; puerperium affecting management of mother (3 sources) Deliveries by ; Translations: [Encounter for delivery without indication] 03-28-2023 Episodic Comment on above: LTCS breech oligo SM girl Citlaly 36 Other complications of ; puerperium affecting management of mother (2 sources) Encounter for delivery without indication; Translations: [ delivery, without mention of indication, delivered, with or without mention of antepartum condition] 03-30-2023 Episodic Other complications of (7 sources) High risk ; Translations: [Supervision of high risk , unspecified, unspecified trimester] 09-07-2022 Episodic Comment on above: PRR girl; Allison ine. ED: 04/24/23 Eros Other complications of (20 sources) Supervision of high risk , unspecified, unspecified trimester; Translations: [Supervision of unspecified high-risk ] 09-21-2022 Episodic Other female genital disorders (5 sources) Vaginal discharge; Translations: [Other specified noninflammatory disorders of vagina] 01-06-2023 Episodic Other and delivery including normal (20 sources) ; Translations: [Encounter for supervision of normal , unspecified, unspecified trimester] 09-07-2022 Episodic Comment on above: NIPT low risk, gende r female and carrier, normal anatomy consistent ED Other upper respiratory infections (2 sources) Acute sinusitis; Translations: [Acute sinusitis, unspecified] Onset: 03-11-2025 Episodic Polyhydramnios and other problems of amniotic cavity (5 sources) Oligohydramnios; Translations: [Oligohydramnios, third trimester, not applicable or unspecified] 03-28-2023 Episodic Comment on above: proceed with deliver y primary Residual codes; unclassified (1 source) Treatment not available; Translations: [Procedure and treatment not carried out for other reasons] Episodic Sprains and strains (2 sources) Strain of foot; Translations: [Strain of unspecified muscle and tendon at ankle and foot level, left foot, initial encounter] 09-27-2024 Episodic Unclassified (1 source) APPOINTMENT CANCELLED Urinary tract infections (1 source) Acute cystitis; Translations: [Acute cystitis without hematuria] Episodic Viral infection (1 source) Enteroviral vesicular stomatitis with exanthem; Translations: [Enteroviral vesicular stomatitis with exanthem] 01-04-2025 Episodic Past or Other Problems Problem Classification Problem Date Documented Da te Episodic/Chronic Abdominal pain (3 sources) Right flank pain; Translations: [Unspecified abdominal pain] Onset: 04-08-2024 03-21-2024 Episodic Nausea and vomiting (1 source) Nausea with vomiting, unspecified; Translations: [Nausea with vomiting, unspecified] Onset: 04-08-2024 Episodic Other injuries and conditions due to external causes (1 source) Unspecified injury of unspecified foot, initial encounter; Translations: [Unspecified injury of unspecified foot, initial encounter] Onset: 10-03-2024 Episodic Results Test Name Value Interpretation Reference Range Facility Urgent Care Visit Reporton 1 05-08-2024 Urgent Care Visit Report [facility] [address], [address] [place] [address] OFFICE VISIT Date of Service: 03/08/25 MR#: [id number] Acct: [id number] Name: DEYSI PRICE Rep #: [id number] : 1990 Provider: FÉLIX Perkins Age/Sex: 34/F Location: [email or web address] Status: Signed Intake Vital Signs 08/14/24 14:37 03/08/25 09:45 Height 5 ft 4 in BP 112/66 Blood Pressure Location Lt brachial Position Sitting Respiration 16 Pulse 100 Pulse Source NIBP Temp 986 F H Temp Source Oral Pulse Oximetry (%) 97 Oxygen Delivery Method room air Intake Visit Reasons: CONGESTION, COUGH Chief Complaint: cough, congest, ear/face/neck pain Strapping Machine Tender Required: No Is patient in pain?: Yes Allergies caffeine Allergy (Verified 03/08/25 10:11) Hives amoxicillin trihydrate (From Augmentin) Adverse Reaction (Unknown, Verified 03/08/25 10:11) Unknown potassium clavulanate (From Augmentin) Adverse Reaction (Verified 03/08/25 10:11) Unknown Medications ???Medication ???Instructions ???Recorded ???Confirmed ???Type rosuvastatin 5 mg tablet 5 mg PO DAILY 05/17/23 03/08/25 Hi story loratadine 10 mg tablet (Allergy 10 mg PO DAILY 03/14/24 03/08/25 H istory Relief (loratadine)) desogestrel 0.15 mg-ethinyl 1 tab PO DAILY #28 tabs 08/14/24 1 05/08/24 Rx estradiol 0.03 mg tablet (Enskyce) hydroxyzine HCl 50 mg tablet 50 mg PO QHS 08/14/24 03/08/25 His tory fluoxetine 40 mg capsule 40 mg PO QDAY #90 caps 12/16/24 Rx Is last menstrual period known: No Post menopausal: No Patient : No Have you fallen in the past year?: No Nurse's Note: cough, congest, ear/face/neck pain x 5 days. denies fever. concern for sinus infection [facility] Medical History delivery delivered Depression Anxiety Pre-eclampsia Vaginal discharge Amenorrhea Asthma Surgical History H/O section S/P tympanostomy tube placement History of tonsillectomy and adenoidectomy Family History Mother Breast cancer, Onset Age: 60 Graves disease Hypertension Lung cancer Grandmother Breast cancer, Onset Age: 60 Congestive heart failure Grandfather Congestive heart failure Kidney disease Diabetes Social History adopted: No household members: spouse and children current occupational status: employed current occupation: [employer] pets and animals: Yes ( does litter box) pets and animals: cat(s) history of recent travel: No sexually active: Yes Smoking Status: Never smoker second hand exposure: No alcohol intake: current details: social- not while substance use type: does not use caffeine: Yes Type: carbonated beverages Number of servings: 1 and tea Number of servings: 1 what type of physical activity do you participate in: walking frequency: 1-2 times per week seatbelt use: always do you feel safe at home: Yes additional social history: -Eros HPI HPI Chief Complaint: cough, congest, ear/face/neck pain Details: DEYSI PRICE, is a 34 F who presents to the office today for ?uri -sx started Monday or Monday -sx ear pain, neck pain, cough- phlegm, nasal congestion and runny nose -no fever or chills -no cp, palpitations, sob -tried so far Tessalon pearls and inhaler ROS Const Constitutional: Positive for other (ROS negative x6 except what was placed in HPI) Exam Const General: cooperative, comfortable and no acute distress Orientation: alert, awake and oriented x3 HENMT Head: normal to inspection and normocephalic Ears: hearing grossly normal bilaterally, external ears normal and TM's normal bilaterally Nose: external nose normal and other (+ congestion and rhinorrhea) Face and sinus: normal facial exam, sinuses nontender and face symmetric Mouth: oral mucosae normal, lip normal, tongue normal, oropharynx normal and moist mucous membranes Throat: posterior oropharynx normal, tonsils normal, uvula midline and postnasal drainage Neck Neck: normal visual inspection, full ROM and no lymphadenopathy Resp Effort Inspection: normal respiratory effort, able to speak in complete sentences and symmetric chest movement Auscultation: Bilateral: Clear to Auscultation, Left: Clear to Auscultation and Right: Clear to Auscultation Cardio Rate: regular rate Rhythm: regular rhythm Heart Sounds: S1 normal and S2 normal GI Auscultation: normal bowel sounds Palpation: soft Skin General: no rashes or lesions noted and turgor normal Neuro General: patient alert, patient awake and patient oriented x3 Cognition: normal cognition Speech: speech normal Psych (more content not included)... Normal [facility] Foot min 3 Viewson 5 Foot min 3 Views [facility] Imaging Services [address] [place] [address] Foot min 3 Views MR#: [id number] Acct: [id number] Name: DEYSI PRICE Rep #: [id number] : 1990 F 34 From: Christian Murillo MD PCP: Dr. Mykel Montoya MD Status: REG CLI Study: Foot min 3 Views Date of Exam: 09/27/24 Exam# [id number] Ordering Dr: Jaxon Chi EXAM: XR Left Foot Complete, 3 or More Views CLINICAL INDICATION: FOOT INJURY TECHNIQUE: Frontal, lateral and oblique views of the left foot. COMPARISON: No relevant prior studies available. FINDINGS: BONES/JOINTS: Mild degenerative changes of the intertarsal joints. SOFT TISSUES: Soft tissue swelling without acute fracture. No radiopaque foreign body. RAD/Foot min 3 Views IMPRESSION: 1. Soft tissue swelling without acute fracture. 2. If symptoms persist, further evaluation with CT is recommended. Reading Location: [facility] CC: LARRY Ramos; Dr. Mykel Montoya MD Cotton Wringer: Signed Normal [facility] Urgent Care Visit Reporton 0 09-27-2024 Urgent Care Visit Report [facility] [address], [address] [place] [address] OFFICE VISIT Date of Service: 09/27/24 MR#: [id number] Acct: [id number] Name: DEYSI PRICE Rep #: [id number] : 1990 Provider: LARRY Ramos Age/Sex: 34/F Location: [facility] Status: Signed Intake Vital Signs 08/14/24 14:37 Height 5 ft 4 in Intake Visit Reasons: L FOOT INJURY Accompanied by: Self Is patient in pain?: Yes Pain scale (1-10): 7 Allergies caffeine Allergy (Verified 09/27/24 12:26) Hives amoxicillin trihydrate (From Augmentin) Adverse Reaction (Unknown, Verified 09/27/24 12:26) Unknown potassium clavulanate (From Augmentin) Adverse Reaction (Verified 09/27/24 12:26) Unknown Medications ???Medication ???Instructions ???Recorded ???Confirmed ???Type rosuvastatin 5 mg tablet 5 mg PO DAILY 05/17/23 09/27/24 Hi story loratadine 10 mg tablet (Allergy 10 mg PO DAILY 03/14/24 09/27/24 H istory Relief (loratadine)) sulfamethoxazole 800 1 tab PO BID 3 days #6 TABLETS 12/2909/27/24 Rx mg-trimethoprim 160 mg tablet desogestrel 0.15 mg-ethinyl 1 tab PO DAILY #28 tabs 08/14/24 0 09/27/24 Rx estradiol 0.03 mg tablet (Enskyce) fluoxetine 40 mg capsule 40 mg PO QDAY #30 caps 08/14/24 Rx hydroxyzine HCl 50 mg tablet 50 mg PO QHS 08/14/24 09/27/24 His tory Nurse's Note: Patient has left foot pain on the outer foot. Patient had a fall last tues. Patient states her foot is still swollen and bruised by the pinky toe. Patient states she has burning on the outside of her foot that goes down the foot. [facility] Medical History delivery delivered Depression Anxiety Pre-eclampsia Vaginal discharge Amenorrhea Asthma Surgical History H/O section S/P tympanostomy tube placement History of tonsillectomy and adenoidectomy Family History Mother Breast cancer, Onset Age: 60 Graves disease Hypertension Lung cancer Grandmother Breast cancer, Onset Age: 60 Congestive heart failure Grandfather Congestive heart failure Kidney disease Diabetes Social History adopted: No household members: spouse and children current occupational status: employed current occupation: [employer] pets and animals: Yes ( does litter box) pets and animals: cat(s) history of recent travel: No sexually active: Yes Smoking Status: Never smoker second hand exposure: No alcohol intake: current details: social- not while substance use type: does not use caffeine: Yes Type: carbonated beverages Number of servings: 1 and tea Number of servings: 1 what type of physical activity do you participate in: walking frequency: 1-2 times per week seatbelt use: always do you feel safe at home: Yes additional social history: -Eros HPI HPI Details: DEYSI PRICE, is a 34 F who presents to the office today for complaint of left foot pain. Patient states that she rolled her left foot and fell approximately 10 days ago and has had pain on the left outside foot since then. She denies numbness, tingling or loss of range of motion to the foot. She does state that she has had a stress fracture in the foot when she was young. No other associated symptoms or alleviating/aggravating factors. ROS Const Constitutional: No other (6 system ROS completed with pertinent findings in HPI otherwise normal.) Exam Const General: cooperative and healthy appearing Skin General: no rashes or lesions noted Neuro General: patient alert Extrem General: full ROM and capillary refill normal Other: Patient palpation the left lateral foot over the fifth metatarsal. Psych Appearance: grossly normal Mental Status: mental status grossly normal Coding Level of Care Code Off vis,new,level 4 Diagnoses Strain of left foot S96.912A Assessment and Plan Assessment and Plan (1) Strain of left foot: Status: Acute Plan: Three-view x-ray of the left foot read and interpreted by myself find no acute osseous abnormalities, awaiting radiology interpretation at time of patient discharge. Patient advised to wear the walking boot that she has at home for the next 10 to 14 days and then follow-up with orthopedics if no better or sooner if worse. Patient advised of RICE techniques and to use ibuprofen or Tylenol as needed for pain unless contraindicated. Patient verbalized understanding and agreement with all the above. Orders: Orders Foot min 3 Views Today S99.929A - Unspecified injury of unspecified foot, initial encounter 09/27/24 1411 Date Jaxon Seo (more content not included)... 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 Is patient in pain?: No Allergies caffeine Allergy (Verified 08/14/24 14:29) Hives amoxicillin trihydrate (From Augmentin) Adverse Reaction (Unknown, Verified 08/14/24 14:29) Unknown potassium clavulanate (From Augmentin) Adverse Reaction (Verified 08/14/24 14:29) Unknown Medications ???Medication ???Instructions ???Recorded ???Confirmed ???Type rosuvastatin 5 mg tablet 5 mg PO DAILY 05/17/23 08/14/24 Hi story loratadine 10 mg tablet (Allergy 10 mg PO DAILY 03/14/24 08/14/24 H istory Relief (loratadine)) sulfamethoxazole 800 1 tab PO BID 3 days #6 TABLETS 12/2908/14/24 Rx mg-trimethoprim 160 mg tablet desogestrel 0.15 mg-ethinyl 1 tab PO DAILY #28 tabs 08/14/24 0 08/14/24 Rx estradiol 0.03 mg tablet (Enskyce) fluoxetine 40 mg capsule 40 mg PO DAILY #30 caps 08/14/24 0 08/14/24 Rx hydroxyzine HCl 50 mg tablet 50 mg PO QHS 08/14/24 08/14/24 His tory Post menopausal: No Patient : No : No Control Method: ocp- enskyce [facility] Medical History delivery delivered Depression Anxiety Pre-eclampsia Vaginal discharge Amenorrhea Asthma Surgical History H/O section S/P tympanostomy tube placement History of tonsillectomy and adenoidectomy Family History Mother Breast cancer, Onset Age: 60 Graves disease Hypertension Lung cancer Grandmother Breast cancer, Onset Age: 60 Congestive heart failure Grandfather Congestive heart failure Kidney disease Diabetes Social History adopted: No household members: spouse and children current occupational status: employed current occupation: [employer] pets and animals: Yes ( does litter box) pets and animals: cat(s) history of recent travel: No sexually active: Yes Smoking Status: Never smoker second hand exposure: No alcohol intake: current details: social- not while substance use type: does not use caffeine: Yes Type: carbonated beverages Number of servings: 1 and tea Number of servings: 1 what type of physical activity do you participate in: walking frequency: 1-2 times per week seatbelt use: always do you feel safe at home: Yes additional social history: -Eros History 1 Elective abortions Hx Para 1 Spontaneous abortions Hx # Term Pregnancies Ectopic pregnancies Hx # Pregnancies Multiple births # of living children 1 Past Pregnancies Del. Date Name GA/Weeks Outcome Route Bth Weight Gen Labor Lgth Anesthesia Del [facility] Provider FOB 03/28/23 Citlaly 36 live - 4#[address] [facility] Arlene Cooney HPI Encounter for routine gynecological examination Details: DEYSI PRICE is a 34 year old who presents for annual exam. She reports she had this overwhelming fear of having breast cancer last night; mom was breast cancer age at 60; she reports no lumps that she is aware of; no breast tenderness. She reports she is in need of refills of both OCP and fluoxetine. Otherwise stable on fluoxetine Last PAP: 2022; normal. hpv neg. History of abnormal PAP: no. Last mammogram: age 39 History of abnormal mammogram: no Colon cancer screening: age 44. Other preventative health care screenings: Mykel Montoya; PCP. Female Reproductive History Last Menstrual Period: 08/03/24 Cycle Length: 21-35 Bleeding Duration: 5 Questions: metorrhagia: No, sexually active: Yes, dyspareunia: No and PCB: No ROS Const Constitutional: Denies chills, fatigue, fever(s), headache(s) or weight loss Eyes Eyes: Denies change in vision ENT ENT: Denies dizziness Resp Resp: Denies cough GI GI: Denies abdominal pain, constipation or nausea : Denies difficulty voiding, dysuria, hematuria, nipple discharge, pelvic pain, prolapse symptoms, urinary incontinence, vaginal discharge, vaginal dryness, vaginal odor or vaginal pruritus Skin Skin/Breast: Denies alopecia, rash, breast mass, breast pain, breast skin changes or nipple discharge Neuro Neuro: Denies dizziness Psych Psych: Denies anxiety or depression Endo Endo: Denie (more content not included)... Normal [facility] L3400.0005on 04-18-2024 V ZOSTER IgG Non-Reactive Normal Non Reactive [facility] Comment on above: Order Comment: HEB Result Comment: Pl ease note reference interval change A Reactive result is considered evidence of immunity to VZV. Reactive indicates that VZV IgG was detected consistent with previous infection and/or vaccination. A Non Reactive result indicates that VZV IgG was not detected suggesting that immunity has not been acquired. Performed at: [facility] [id number] Oil Refiner: Peter Mark PhD, Phone: [phone] Performed By: #### L 3890.6200, L3400.0005 ####[facility] [address] [place], [place], [id number] Hepatitis B Surface Antibody on 04-16-2024 HEP B Surf Ab Non-Reactive Normal [facility] Comment on above: Result Comment: Non Reactive: Inconsistent with immunity less than <10 mIU/mL Reactive: Consistent with immunity greater than or equal to 10 mIU/mL Performed By: #### L 3890.6200, L3400.0005 #### [facility] [address] [place], [place], [id number] Calculi, Urinary w / Photoon 03-21-2024 . Comment Normal . [facility] Comment on above: Order Comment: Comme nts: right side uretera calculi. Result Comment: Perc entage (Represents the % composition) Performed By: #### L 3649.0100 #### [facility] [address] [place], [address] 2,8 Dihydroxyad TNP Normal . [facility] Comment on above: Order Comment: Comme nts: right side uretera calculi. Performed By: #### L 3649.0100 #### [facility] [address] [place], [address] AMM ACID URATE TNP Normal . [facility] Comment on above: Order Comment: Comme nts: right side uretera calculi. Performed By: #### L 3649.0 #### [facility] [address] [place], [address] Bilirubin Ql (U) TNP Normal . [facility] Comment on above: Order Comment: Comme nts: right side uretera calculi. Performed By: #### L 3649.0 #### [facility] [address] [place], [address] CA BILIRUBINATE TNP Normal . [facility] Comment on above: Order Comment: Comme nts: right side uretera calculi. Performed By: #### L 3649.0 #### [facility] [address] [place], [address] CA CARBONATE TNP Normal . [facility] Comment on above: Order Comment: Comme nts: right side uretera calculi. Performed By: #### L 3649.0 #### [facility] [address] [place], [address] CA HYDROG PHOS TNP Normal . [facility] Comment on above: Order Comment: Comme nts: right side uretera calculi. Performed By: #### L 3649.0100 #### [facility] [address] [place], [address] CA OXAL DIHYDR 20 Normal . [facility] Comment on above: Order Comment: Comme nts: right side uretera calculi. Performed By: #### L 3650.0100 #### [facility] [address] [place], [address] CA OXAL MONOHYD 60 Normal . [facility] Comment on above: Order Comment: Comme nts: right side uretera calculi. Performed By: #### L 0.0100 #### [facility] [address] [place], [address] CA Palmitate TNP Normal . [facility] Comment on above: Order Comment: Comme nts: right side uretera calculi. Performed By: #### L 0.0100 #### [facility] [address] [place], [address] CA PHOS (hydro) 20 Normal . [facility] Comment on above: Order Comment: Comme nts: right side uretera calculi. Performed By: #### L 3649.0100 #### [facility] [address] [place], [address] CA PHOSPHATE TNP Normal . [facility] Comment on above: Order Comment: Comme nts: right side uretera calculi. Performed By: #### L 0.0100 #### [facility] [address] [place], [address] CA Stearate TNP Normal . [facility] Comment on above: Order Comment: Comme nts: right side uretera calculi. Performed By: #### L 3649.0100 #### [facility] [address] [place], [address] CELL MATERIAL TNP Normal . [facility] Comment on above: Order Comment: Comme nts: right side uretera calculi. Performed By: #### L 3649.0100 #### [facility] [address] [place], [address] CHOLESTEROL TNP Normal . [facility] Comment on above: Order Comment: Comme nts: right side uretera calculi. Performed By: #### L 3650.0100 #### [facility] [address] [place], [address] Color (U) Stevens Normal . [facility] Comment on above: Order Comment: Comme nts: right side uretera calculi. Performed By: #### L 3650.0100 #### [facility] [address] [place], [address] COMMENT Comment Normal . [facility] Comment on above: Order Comment: Comme nts: right side uretera calculi. Result Comment: Calc ium phosphate (hydroxyl form) includes hydroxyapatite, amorphous calcium phosphate, and whitlockite. Hydroxyapatite is the most common of the calcium phosphate salts found in human kidney stones. Performed By: #### L 3650.0100 #### [facility] [address] [place], [address] Result Comment: Calc ulus received wet. Wet calculi must be dried before analysis, which delays reporting of results. Leaving calculi wet (such as water, saline, blood, urine) may lead to changes in composition. Result Comment: Phys ician questions regarding Calculi Analysis [facility] at: [phone]. Result Comment: Calc britt report will follow via computer, mail or brick off bearer delivery. CYSTINE TNP Normal . [facility] Comment on above: Order Comment: Comme nts: right side uretera calculi. Performed By: #### L 3650.0100 #### [facility] [address] [place], [address] Disclaimer Comment Normal . [facility] Comment on above: Order Comment: Comme nts: right side uretera calculi. Result Comment: This test was developed and its performance characteristics determined by [employer]. It has not been cleared or approved by the Food and Drug Administration. Performed at: [address] [id number] Oil Refiner: Jacqui Martínez PhD, Phone: [phone] Performed By: #### L 3649.0100 #### [facility] [address] [place], [address] DRIED BLOOD TNP Normal . [facility] Comment on above: Order Comment: Comme nts: right side uretera calculi. Performed By: #### L 0.0100 #### [facility] [address] [place], [address] Drug/Metabolite TNP Normal . [facility] Comment on above: Order Comment: Comme nts: right side uretera calculi. Performed By: #### L 0.0100 #### [facility] [address] [place], [address] MAG YUNIOR PHOS TNP Normal . [facility] Comment on above: Order Comment: Comme nts: right side uretera calculi. Performed By: #### L 3649.0100 #### [facility] [address] [place], [address] NA ACID URATE TNP Normal . [facility] Comment on above: Order Comment: Comme nts: right side uretera calculi. Performed By: #### L 3649.0100 #### [facility] [address] [place], [address] NEWBERYITE TNP Normal . [facility] Comment on above: Order Comment: Comme nts: right side uretera calculi. Performed By: #### L 3649.0100 #### [facility] [address] [place], [address] Other Component TNP Normal . [facility] Comment on above: Order Comment: Comme nts: right side uretera calculi. Performed By: #### L 3649.0100 #### [facility] [address] [place], [address] PHOTO Comment Normal . [facility] Comment on above: Order Comment: Comme nts: right side uretera calculi. Result Comment: Phot ograph will follow under a separate cover Performed By: #### L 0.0100 #### [facility] [address] [place], [address] SIZE 3x2 Normal . [facility] Comment on above: Order Comment: Comme nts: right side uretera calculi. Result Comment: Mult iple pieces received. Dimensions of the largest piece reported. Performed By: #### L 0.0100 #### [facility] [address] [place], [address] SOURCE Comment Normal . [facility] Comment on above: Order Comment: Comme nts: right side uretera calculi. Result Comment: Jose t Ureter Performed By: #### L 3649.0 #### [facility] [address] [place], [address] TRIAMTERENE TNP Normal . [facility] Comment on above: Order Comment: Comme nts: right side uretera calculi. Performed By: #### L 3649.0100 #### [facility] [address] [place], [address] URIC ACID TNP Normal . [facility] Comment on above: Order Comment: Comme nts: right side uretera calculi. Performed By: #### L 3649.0100 #### [facility] [address] [place], [address] URIC ACID DIHYD TNP Normal . [facility] Comment on above: Order Comment: Comme nts: right side uretera calculi. Performed By: #### L 3649.0100 #### [facility] [address] [place], [address] WEIGHT 8 mg Normal . [facility] Comment on above: Order Comment: Comme nts: right side uretera calculi. Performed By: #### L 0.0100 #### [facility] [address] [place], [address] XANTHINE TNP Normal . [facility] Comment on above: Order Comment: Brynn nts: right side uretera calculi. Performed By: #### L 3650.0100 #### [facility] [address] [place], [address] Discharge Instructionon 11-0 Discharge Instruction [facility] Medical Records Department [address] [place] [address] Instructions for Home/Discharge Instructions 03/15/24 1248 MR#: [id number] Acct: [id number] Name: DEYSI PRICE Rep #: [id number] : 1990 33 From: Francoise Velez MD PCP: Dr. Mykel Montoya MD Status:ADM CARLOS Discharge Instructions Diet Discharge Diet: No restrictions Activity Discharge Activity: Return to Normal Activity Dressing / Incision Call your doctor if you observe: Fever of 101 or Higher and Inability to urinate Follow Up Care Please Follow Up With: Francoise Velez MD When: The office will call to make follow-up arrangements for stent removal next week Test Results: Test results from this visit will be discussed in further detail at your follow-up appointment, if applicable. Discharge Plan Admission Admit Date/Time: 03/14/24 16:38 Attending Provider: Francoise Velez Primary Care Provider: Mykel Montoya Discharge Orders/Prescriptions Prescriptions: New phenazopyridine [Pyridium] 200 mg tablet 200 mg PO TID PRN PRN (Reason: Bladder Spasms) 7 Days Qty: 30 0RF sulfamethoxazole-trimet hoprim 800-160 mg tablet 1 tab PO BID 3 Days Qty: 6 0RF oxycodone-acetaminophen [Percocet] 5-325 mg tablet 1 tab PO Q8H PRN (Reason: pain) 3 Days Qty: 10 0RF Continued fluoxetine 40 mg capsule 40 mg PO DAILY rosuvastatin 5 mg tablet 5 mg PO DAILY desogestrel-ethinyl estradiol [Enskyce] 0.15-0.03 mg tablet 1 tab PO DAILY Qty: 84 4RF loratadine [Allergy Relief (loratadine)] 10 mg tablet 10 mg PO DAILY Referrals / Follow Up: Mykel Montoya MD [Primary Care Provider] - Disposition Disposition (needs filled in before D/C Order can be placed): Home, Self Care 03/15/24 1251 Francoise Velez MD CC: Dr. Mykel Montoya MD Signed [facility] MR/POSTOP.ANEon 03-15-2024 MR/POSTOP.[facility] Medical Records Department [address] [place] [address] Anesthesia Postop Eval I 03/15/24 1304 MR#: [id number] Acct: [id number] Name: MARIA ELENAAurelianoDEYSI Rep #: [id number] : 1990 33 From: Joseph Boothe PCP: Dr. Mykel Montoya MD Status:ADM CARLOS Y Race: C Location: [place] [address] Anesthesia: Postop Eval I Current Vital Signs Temperature: 987 F Pulse Rate: 95 Blood Pressure: 122/72 Respiratory Rate: 16 Pulse Ox: 97 Oxygen Delivery Method: Room Air Assessment Airway patent: Yes Spontaneous unlabored respirations: Yes Mental status: Awake and Calm nausea: No Vomiting: No Anesthesia Complication: No Fluid Hydration Crystalloid volume administer (ml): 500 Total IV fluid infused: 500 Progress Note Anesthesia document: Postop Eval 1 completed: Yes 03/15/24 1305 Date Joseph Fernandes Signature: Date CC: Signed [facility] MR/[id number] 03-15-2024 MR/POSTOPAN2 [facility] Medical Records Department [address] [place] [address] Anesthesia Postop Eval II 03/15/24 1719 MR#: [id number] Acct: [id number] Name: DEYSI PRICE Rep #: [id number] : 1990 33 From: Rubén Rivas MD PCP: Dr. Mykel Montoya MD Status:DIS CARLOS Y Race: C [facility] Postop Eval I Sum Postop Eval Completion status Anesthesia document: Postop Eval 1 completed: Yes Anesthesia Postop Eval I Summary Anesthesia Postop Eval I Summary: Anesthesia Postop Eval I: Assessment Summary Airway patent Yes 03/15/24 13:05 MUD BOSS.MDOT Spontaneous unlabored Yes 03/15/24 13:05 MUD BOSS.MDOT respirations Mental status Awake,Calm 03/15/24 13:05 MUD BOSS.MDOT nausea No 03/15/24 13:05 MUD BOSS.MDOT Vomiting No 03/15/24 13:05 MUD BOSS.MDOT Anesthesia Postop Eval I: Fluid Summary Crystalloid volume administer 500 03/15/24 13:05 MUD BOSS.MDOT (ml) Colloids volume administered ( ml) Blood Product volume administered (ml) Total IV fluid infused 500 03/15/24 13:05 MUD BOSS.MDOT Anesthesia Postop Eval I: Summary Notes Anesthesia Complication No 03/15/24 13:05 MUD BOSS.MDOT Anesthesia Complication Comment: Post-operative progress note Anesthesia: Postop Eval II Evaluation Mental status: Awake and Calm Pain Level: 1 nausea: No Vomiting: No Complications Anesthesia Complication: No 03/15/24 1719 Date Rubén Rivas MD Cosigner Signature: Date CC: Signed Normal [facility] Operative Reporton 4 Operative Report [facility] Medical Records Department [address] [place] [address] Operative Report 03/15/24 1251 MR#: [id number] Acct: [id number] Name: CORALDEYSI CASTILLOON Rep #: [id number] : 1990 33 From: Francoise eVlez MD PCP: Dr. Mykel Montoya MD Status:ADM CARLOS Location: [place] [id number] Operative Report (Standard) Operative Information Surgery/Procedure Performed: Cystoscopy, right ureteroscopy, thulium laser lithotripsy, right ureteral stent insertion Surgeon: Francoise Velez Date of Procedure: 03/15/24 Procedure Start Time: 12:24 Procedure Stop Time: 12:42 Pre-Operative Diagnosis: Right distal ureteral calculus Post-Operative Diagnosis: Same Select all DRAINS/GRAFTS/IMPLANTS that apply: Drains Drain details: 4.5 Namibian by 26 cm JJ stent Type of Anesthesia: General Estimated Blood Loss: <5cc Specimen collected: Yes Description of specimen(s) removed: Ureteral stone fragments Description of surgery: The patient is a 33-year-old female who was admitted with uncontrolled pain, nausea and vomiting secondary to a right ureteral calculus. She presents for surgical intervention and informed consent was obtained. She was taken to the operating room and placed on the operating room table. Anesthesia monitored the head, neck, airway, IV access and vital signs throughout the case. Once anesthesia was appropriately administered, she was placed into dorsolithotomy position and was prepped and draped in usual sterile fashion. The cystoscope was inserted through the urethra under direct visualization into the urinary bladder which revealed no evidence of mass, erythema, ulceration or foreign body. The right ureteral orifice was identified and intubated with a 0.035 Glidewire which easily advanced into the renal pelvis is seen on fluoroscopic visualization. Using the semirigid ureteroscope and the help of a 0.025 Glidewire, the ureteral lumen was intubated and the ureteroscope advanced to the level of the distal ureteral stone. A 200 ???m laser fiber was then used to break the stone into the small pieces which were removed with a basket. Repeat ureteroscopy revealed no evidence of remaining stone. There was no evidence of ureteral injury. The 0.035 Glidewire was used for placement of a 4.5 x 26 cm JJ stent which had good positioning in the renal pelvis as well as the urinary bladder. The bladder was emptied and the cystoscope was removed. She was awakened and taken to the recovery room in good condition. There were no complications during this procedure. 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 Remington Buckley DO; Dr. Francoise Velez MD; Dr. Mykel Montoya MD Signed Normal [facility] Surgery Specimen Level Ion 1 05-15-2023 Surgery Specimen Level I Patient Age/Sex Location Account Attending Physician DEYSI PRICE 33/F MS3 [id number] Dr. Francoise Velez MD Specimen: [id number] Received: 03/15/24 Status: EDWIGEEloisa Cristhian Num: [id number] Spec Type: Calculi Subm Dr: Dr. Francoise Velez MD HEADER OPERATION: Ureteroscopy, laser, stent PRE-OP DIAGNOSIS: TISSUE SUBMITTED: Ureteral calculi- right GROSS DIAGNOSIS Fragments of the stone, clinically right ureteral calculi (gross only). See comment. 03/15/2024 COMMENT The calculus is submitted in its entirety for chemical stone analysis. The results from this study will be reported separately. GROSS DESCRIPTION Received without fixative labeled with the patient's name and designated "right ureteral calculi." The specimen consists of two fragments of stevens-brown stone measuring in aggregate 0.5 x 0.3 x 0.1cm. This specimen is for gross identification. The entire specimen is submitted for stone analysis. 03/15/2024 CPT: 67754 Patient Age/Sex Location Account Attending Physician DEYSI PRICE 33/F MS3 [id number] Dr. Francoise Velez MD Signed (signature on file) Dr. Silvino Boone MD 03/18/24 0945 Normal [facility] Comment on above: Performed By: #### P ERIKA ####[facility] [address] [facility] [place], [place], [address] Abdomen Single Viewon 2023 Abdomen Single View [facility] Imaging Services [address] [place], [place] [address] Abdomen Single View MR#: [id number] Acct: [id number] Name: DEYSI PRICE Rep #: [id number] : 1990 F 33 From: Larry Kate PCP: Dr. Mykel Montoya MD Status: [facility] Study: Abdomen Single View Date of Exam: 03/14/24 Exam# [id number] Ordering Dr: [place] [id number] INDICATION: distal right ureteral stone EXAMINATION/TECHNIQUE: X-RAY - XR Abdomen 1 View COMPARISON: No relevant prior comparison study available FINDINGS: BOWEL GAS PATTERN: Non-obstructive. No bowel or stomach distention. FREE AIR: Not assessed on a single supine view. ORGANOMEGALY: Not seen. CALCIFICATIONS: No abnormal calcifications observed. LOWER CHEST: No acute pathology. BONES AND SOFT TISSUES: No acute pathology. RAD/Abdomen Single View IMPRESSION: Non-obstructive bowel gas pattern. Electronically Signed: Larry Rivero MD at 13:35 EST , CC: Dr. Remington Buckley DO; Dr. Mykel Montoya MD Cotton Wringer: Signed Normal [facility] Basic Metabolic Profile (BMP )on 03-14-2024 BUN/CRE 11.9 RATIO Normal 10-20 [facility] Comment on above: Performed By: #### L 700.6800, L500.2500, L100.0100 ####[facility] [address] [place], [address] CA,Total 9.4 mg/dL Normal 8.5-10.1 [facility] Comment on above: Performed By: #### L 700.6800, L500.2500, L100.0100 ####[facility] [address] [place], [address] Chloride [Moles/Vol] 109 mmol/L High 98-107 [facility] Comment on above: Performed By: #### L 700.6800, L500.2500, L100.0100 ####[facility] [address] [place], [address] CO2 [Moles/Vol] 21.0 mmol/L Normal 21.0-32.0 [facility] Comment on above: Performed By: #### L 700.6800, L500.2500, L100.0100 ####[facility] [address] [place], [address] Creatinine [Mass/Vol] 0.93 mg/dL Normal 0.55-1.02 [facility] Comment on above: Result Comment: The validity of the calculated GFR GFRAA in patients over 70 years has not been determined. Clinical correlation is essential. Performed By: #### L 700.6800, L500.2500, L100.0100 ####[facility] [address] [place], [address] ECRCL 88.89 ml/min Normal [facility] Comment on above: Performed By: #### L 700.6800, L500.2500, L100.0100 ####[facility] [address] [place], [address] EST GFR - AA 89 mL/min Normal >60 [facility] Comment on above: Result Comment: Afri can Barbadian GFR Calc Performed By: #### L 700.6800, L500.2500, L100.0100 ####[facility] [address] [place], [address] GAP 9 Normal 5-15 [facility] Comment on above: Performed By: #### L 700.6800, L500.2500, L100.0100 ####[facility] [address] [place], [address] GFR/1.73 sq M.predicted among non-blacks MDRD (S/P/Bld) [Vol rate/Area] 73 mL/min/{1.73_m2} Normal >60 [facility] Comment on above: Result Comment: Non- GFR Calc Performed By: #### L 700.6800, L500.2500, L100.0100 ####[facility] [address] [place], [address] Glucose [Mass/Vol] 122 mg/dL High 74-106 [facility] Comment on above: Result Comment: Fast ing Glucose result from 100 to 125 mg/dL suggests IMPAIRED HOMEOSTASIS per A.D.A. criteria. Performed By: #### L 700.6800, L500.2500, L100.0100 ####[facility] [address] [place], [address] Potassium [Moles/Vol] 3.7 mmol/L Normal 3.5-5.1 [facility] Comment on above: Result Comment: Mode rate Hemolysis, Result may be falsely increased. Performed By: #### L 700.6800, L500.2500, L100.0100 ####[facility] [address] [place], [address] Sodium [Moles/Vol] 139 mmol/L Normal 136-145 [facility] Comment on above: Performed By: #### L 700.6800, L500.2500, L100.0100 ####[facility] [address] [place], [address] Urea nitrogen [Mass/Vol] 11 mg/dL Normal 7-18 [facility] Comment on above: Performed By: #### L 700.6800, L500.2500, L100.0100 ####[facility] [address] [place], [address] CBC W/Diff, Automatedon 11-0 PLT EST ADEQUATE Normal ADEQ [facility] Comment on above: Performed By: #### L 700.6800, L500.2500, L100.0100 ####[facility] [address] [place], [address] Emergency Department Summary on 03-14-2024 Emergency Department Summary [facility] Medical Records Department [address] [place] [address] Emergency Department Summary 03/14/24 MR#: [id number] Acct: [id number] Name: DEYSI PRICE Rep #: [id number] : 1990 33 From: Remington Buckley DO PCP: Dr. Mykel Montoya MD Status:DIS CARLOS Location: [place] [address] HPI History of Present Illness Chief Complaint: Flank Pain Informant: patient Narrative Narrative: 33-year-old female presenting to the emergency room with vomiting and pain. Patient states that last evening she was diagnosed with a kidney stone. She states that she was given pain medication but states that due to the vomiting she has not been able to control her pain. She has never had a kidney stone before. She states she spoke with her doctor's office who advised her to come to the emergency and see if Dr. Velez from urology was available. The patient denies any fevers. Review of her chart showed her to have a leukocytosis last night. There is blood in the urine but no overt infection. [facility] Medical History delivery delivered Depression Anxiety Pre-eclampsia Vaginal discharge Amenorrhea Asthma Home Medications ???Medication ???Instructions ???Recorded ???Last Taken ???Type fluoxetine 40 mg capsule 40 mg PO DAILY 04/11/23 Unknown History desogestrel 0.15 mg-ethinyl 1 tab PO DAILY #84 tabs 05/17/23 Unknown Rx estradiol 0.03 mg tablet (Enskyce) rosuvastatin 5 mg tablet 5 mg PO DAILY 05/17/23 Unknown History loratadine 10 mg tablet (Allergy 10 mg PO DAILY 03/14/24 Unknown History Relief (loratadine)) oxycodone-acetaminophen 5 mg-325 1 tab PO Q8H PRN pain 3 days #10 03/15/24 Unknown Rx mg tablet (Percocet) tabs phenazopyridine 200 mg tablet 200 mg PO TID PRN PRN Bladder 03/15/24 Unknown Rx (Pyridium) Spasms 7 days #30 tabs sulfamethoxazole 800 1 tab PO BID 3 days #6 TABLETS 03/15/24 Unknown Rx mg-trimethoprim 160 mg tablet Allergy/AdvReac Type Severity Reaction Status Date / Time caffeine Allergy Hives Verified 03/14/24 12:28 amoxicillin trihydrate (From AdvReac Unknown Unknown Verified 03/14/24 12:28 Augmentin) potassium clavulanate (From AdvReac Unknown Verified 03/14/24 12:28 Augmentin) Family History Mother Breast cancer, Onset Age: 60 Graves disease Hypertension Lung cancer Grandmother Breast cancer, Onset Age: 60 Congestive heart failure Grandfather Congestive heart failure Kidney disease Diabetes Surgical History (Updated 03/15/24 @ 11:[address] Rubén Rivas MD) H/O section S/P tympanostomy tube placement History of tonsillectomy and adenoidectomy Social History adopted: No household members: spouse and children current occupational status: employed current occupation: [employer] pets and animals: Yes ( does litter box) pets and animals: cat(s) history of recent travel: No sexually active: Yes Smoking Status: Never smoker second hand exposure: No alcohol intake: current details: social- not while substance use type: does not use caffeine: Yes Type: carbonated beverages Number of servings: 1 and tea Number of servings: 1 what type of physical activity do you participate in: walking frequency: 1-2 times per week seatbelt use: always do you feel safe at home: Yes additional social history: -[facility] ECHO ROS ED Constitutional Constitutional ED: Reports sweats; Denies chills or weight loss Eyes Eyes: Denies change in vision or diplopia ENT ENT ED: Denies ear pain, rhinorrhea or sore throat Cardiovascular Cardiovascular: Denies chest pain, orthopnea, palpitations or racing heartbeat Respiratory/Chest Respiratory/Chest: Denies cough, dyspnea or orthopnea Gastrointestinal Gastrointestinal: Reports abdominal pain, nausea, vomiting and other Details: Right flank pain ; Denies diarrhea Genitourinary Genitourinary ED: Denies dysuria, hematuria or urinary frequency Musculoskeletal Musculoskeletal: Denies arthralgias or myalgias Integumentary Denies abscess or rash Neurologic Neurologic: Denies headache(s) or weakness Psychiatric Psychiatric: Denies anxiety, depression, suicidal ideation or suicidal thoughts Endocrine Endocrinology: Denies polydipsia, polyphagia or polyuria Allergic/Immunologic Allergic/Immunologic ED: Denies mouth swelling, tongue swelling or urticaria EXAM Physical Exam Const Vital Signs: 03/14/24 12:28 03/14/24 14:28 Temperature 97.9 F Temperature Source Temporal Pulse Rate 102 H 77 Respiratory Rate 18 18 Blood Pressure 141/95 H 136/84 H Blood Pressure Mean 110 101 Pulse Ox 99 99 Oxygen Delive (more content not included)... Normal [facility] ,Serum,hCG Quali.on 03-14-2024 HCG, SERUM QUAL Negative Normal [facility] Comment on above: Performed By: #### L 700.8510, L500.2500, L100.0100 ####[facility] [address] [place], [address] Urinalysis, Completeon 03-14 BACTERIA RARE Normal None Seen [facility] Comment on above: Order Comment: CRITI MAIA VALUE CALLED TO MIGUEL REEVESBRIGHT03/14/24 1531 Yesy Lollo.RESULTS READ BACK BY SAME.CLEAN CATCH Performed By: #### L 400.0001 ####[facility] [address] [place], [address] Mucus Ql (Urine sed) 1+ /hpf Normal [facility] Comment on above: Order Comment: CRITI MAIA VALUE CALLED TO [facility] JDJGGFEKLND99/07/24 1531 Yesy Lollo.RESULTS READ BACK BY SAME.CLEAN CATCH Performed By: #### L 400.0001 ####[facility] [address] [place], [address] RBC 0-5 SEEN Normal 0-5 [facility] Comment on above: Order Comment: CRITI MAIA VALUE CALLED TO [facility] JPXBREJAZBZ27/07/24 1531 Yesy Lollo.RESULTS READ BACK BY SAME.CLEAN CATCH Performed By: #### L 400.0001 ####[facility] [address] [place], [address] EPI,SQUAMOUS 0 SEEN Normal 5-10 [facility] Comment on above: Order Comment: CRITI MAIA VALUE CALLED TO [facility] MNTSUIZLZRI15/07/24 1531 Yesy Lollo.RESULTS READ BACK BY SAME.CLEAN CATCH Performed By: #### L 400.0001 ####[facility] [address] [place], [address] WBC 0 SEEN Normal 0-5 [facility] Comment on above: Order Comment: CRITI MAIA VALUE CALLED TO MIGUELASHLEY REEVESXPOMHRUXGWH98/07/24 1531 Yesy Lollo.RESULTS READ BACK BY SAME.CLEAN CATCH Performed By: #### L 400.0001 ####[facility] [address] [place], [address] Abdomen/Pelvis without Conto n 03-13-2024 Abdomen/Pelvis without Cont [facility] Imaging Services [address] [place] [address] Abdomen/Pelvis without Cont MR#: [id number] Acct: [id number] Name: DEYSI PRICE Rep #: [id number] : 1990 F 33 From: Dejuan marquez DO PCP: Dr. Mykel Montoya MD Status: REG ER Study: Abdomen/Pelvis without Cont Date of Exam: 10/29 Exam# [id number] Ordering Dr: [place] [id number] EXAM: CT ABDOMEN AND PELVIS WITHOUT INTRAVENOUS CONTRAST CLINICAL INDICATION: Right flank pain TECHNIQUE: Helically acquired images were obtained of the abdomen and pelvis without intravenous contrast. This CT exam was performed using one or more of the following dose reduction techniques: automated exposure control, adjustment of the mA and/or kV according to patient size, and/or use of iterative reconstruction technique. COMPARISON: No relevant prior studies available. FINDINGS: LOWER THORAX: No significant abnormality. Lung bases are clear. No cardiomegaly. No significant pericardial effusion. ABDOMEN: LIVER: No significant abnormality. Homogeneous. GALLBLADDER AND BILE DUCTS: No significant abnormality. No calcified gallstones. No gallbladder distention or wall edema. No intra- or extrahepatic biliary ductal dilation. PANCREAS: No significant abnormality. No focal cystic mass. SPLEEN: No significant abnormality. Normal size without focal cystic or solid mass. ADRENALS: No significant abnormality. No nodules. KIDNEYS AND URETERS: Mild right-sided hydroureteronephrosis secondary to a 4 mm stone at the distal right ureter. Normal renal size and position. No additional urolithiasis or renal abnormality. STOMACH AND BOWEL: No significant abnormality. No stomach or bowel distention. No focal inflammatory change. PELVIS: APPENDIX: No evidence of acute appendicitis. BLADDER: No significant abnormality. REPRODUCTIVE: Normal as visualized. No mass. ABDOMEN and PELVIS: INTRAPERITONEAL SPACE: No significant abnormality. No ascites or other fluid collection. No free air. BONES/JOINTS: No significant abnormality. No suspicious lytic or blastic abnormality. SOFT TISSUES: No significant abnormality. No discrete abdominal or pelvic wall hernia. VASCULATURE: No significant abnormality. Abdominal aorta is non-dilated. LYMPH NODES: No significant abnormality. No enlarged lymph nodes. CT/Abdomen/Pelvis without Cont IMPRESSION: Mild right-sided hydroureteronephrosis secondary to a 4 mm stone at the distal right ureter. Electronically Signed: Dejuan Veronica DO at 21:25 EST , CC: Dr. Jordon Astudillo DO; Dr. Mykel Montoya MD Cotton Wringer: Signed Normal [facility] CBC W/Diff, Automatedon 11-0 Absolute Lymph 1.74 X10 3/uL Normal 0.83-4.51 [facility] Comment on above: Performed By: #### L 500.4050, L100.0100 #### [facility] [address] [place], [address] Absolute Neut 14.8 X10 3/uL High 2.0-7.7 [facility] Comment on above: Performed By: #### L 500.4050, L100.0100 #### [facility] [address] [place], [address] Basophils/100 WBC (Bld) 0.4 % Normal 0-1 [facility] Comment on above: Performed By: #### L 500.4050, L100.0100 #### [facility] [address] [place], [address] Eosinophils/100 WBC (Bld) 0.7 % Normal 0-5 [facility] Comment on above: Performed By: #### L 500.4050, L100.0100 #### [facility] [address] [place], [address] Erythrocyte distribution width (RBC) [Ratio] 14.0 % Normal 11.6-14.6 [facility] Comment on above: Performed By: #### L 500.4050, L100.0100 #### [facility] [address] [place], [address] Hematocrit (Bld) [Volume fraction] 40.7 % Normal 37-47 [facility] Comment on above: Performed By: #### L 500.4050, L100.0100 #### [facility] [address] [place], [address] Hemoglobin (Bld) [Mass/Vol] 14.0 g/dL Normal 12.0-15.0 [facility] Comment on above: Performed By: #### L 500.4050, L100.0100 #### [facility] [address] [place], [address] IG% 0.600 Normal 0.0-0.9 [facility] Comment on above: Result Comment: IG% - Immature Granulocytes (promyelocytes, myelocytes and metamyelocytes) > 1% indicates that a LEFT SHIFT is Present. Performed By: #### L 500.4050, L100.0100 #### [facility] [address] [place], [address] Lymphocytes/100 WBC (Bld) 9.9 % Low 19-41 [facility] Comment on above: Performed By: #### L 500.4050, L100.0100 #### [facility] [address] [place], [address] MCH (RBC) [Entitic mass] 29.2 pg Normal 27.0-32.0 [facility] Comment on above: Performed By: #### L 500.4050, L100.0100 #### [facility] [address] [place], [address] MCHC (RBC) [Mass/Vol] 34.4 g/dL Normal 32-36 [facility] Comment on above: Performed By: #### L 500.4050, L100.0100 #### [facility] [address] [place], [address] MCV (RBC) [Entitic vol] 85.0 fL Normal 81-99 [facility] Comment on above: Performed By: #### L 500.4050, L100.0100 #### [facility] [address] [place], [address] Monocytes/100 WBC (Bld) 4.3 % Normal 0-10 [facility] Comment on above: Performed By: #### L 500.4050, L100.0100 #### [facility] [address] [place], [address] Neutrophils/100 WBC (Bld) 84.1 % High 47-70 [facility] Comment on above: Performed By: #### L 500.4050, L100.0100 #### [facility] [address] [place], [address] Nucleated RBC (Bld) [#/Vol] 0 10*3/uL Normal 0-5 [facility] Comment on above: Performed By: #### L 500.4050, L100.0100 #### [facility] [address] [place], [address] Platelet mean volume (Bld) [Entitic vol] 10.1 fL Normal 6.2-12.0 [facility] Comment on above: Performed By: #### L 500.4050, L100.0100 #### [facility] [address] [place], [address] Platelets (Bld) [#/Vol] 338 10*3/uL Normal 150-450 [facility] Comment on above: Performed By: #### L 500.4050, L100.0100 #### [facility] [address] [place], [address] RBC (Bld) [#/Vol] 4.79 10*6/uL Normal 4.2-5.4 [facility] Comment on above: Performed By: #### L 500.4050, L100.0100 #### [facility] [address] [place], [address] RDW SD 43.3 fl Normal 35.1-43.9 [facility] Comment on above: Performed By: #### L 500.4050, L100.0100 #### [facility] [address] [place], [address] WBC (Bld) [#/Vol] 17.6 10*3/uL High 4.4-11.0 [facility] Comment on above: Performed By: #### L 500.4050, L100.0100 #### [facility] [address] [place], [address] Comprehensive Metabolic Prof [facility] 03-13-2024 Albumin [Mass/Vol] 3.7 g/dL Normal 3.2-5.0 [facility] Comment on above: Performed By: #### L 500.4050, L100.0100 #### [facility] [address] [place], [address] Albumin/Globulin [Mass ratio] 0.8 {ratio} Low 0.9-2.4 [facility] Comment on above: Performed By: #### L [id number], L100.0100 #### [facility] [address] [place], [address] ALK P 114 U/L Normal 45-117 [facility] Comment on above: Performed By: #### L 500.4050, L100.0100 #### [facility] [address] [place], [address] ALT [Catalytic activity/Vol] 35 U/L Normal 13-56 [facility] Comment on above: Performed By: #### L 500.4050, L100.0100 #### [facility] [address] [place], [address] AST [Catalytic activity/Vol] 21 U/L Normal 15-37 [facility] Comment on above: Performed By: #### L 500.4050, L100.0100 #### [facility] [address] [place], [address] Bilirubin [Mass/Vol] 0.30 mg/dL Normal 0.20-1.00 [facility] Comment on above: Result Comment: For patients on eltrombopag therapy, use of Dimension Lapaz TBIL is not recommended. Performed By: #### L 500.4050, L100.0100 #### [facility] [address] [place], [address] BUN/CRE 12.0 RATIO Normal 10-20 [facility] Comment on above: Performed By: #### L [id number], L100.0100 #### [facility] [address] [place], [address] CA,Total 9.6 mg/dL Normal 8.5-10.1 [facility] Comment on above: Performed By: #### L [id number], L100.0100 #### [facility] [address] [place], [address] Chloride [Moles/Vol] 110 mmol/L High 98-107 [facility] Comment on above: Performed By: #### L [id number], L100.0100 #### [facility] [address] [place], [address] CO2 [Moles/Vol] 21.0 mmol/L Normal 21.0-32.0 [facility] Comment on above: Performed By: #### L [id number], L100.0100 #### [facility] [address] [place], [address] Creatinine [Mass/Vol] 0.83 mg/dL Normal 0.55-1.02 [facility] Comment on above: Result Comment: The validity of the calculated GFR GFRAA in patients over 70 years has not been determined. Clinical correlation is essential. Performed By: #### L 500.4050, L100.0100 #### [facility] [address] [place], [address] ECRCL 100.01 ml/min Normal [facility] Comment on above: Performed By: #### L 500.4050, L100.0100 #### [facility] [address] [place], [address] EST GFR - AA 101 mL/min Normal >60 [facility] Comment on above: Result Comment: Afri can Barbadian GFR Calc Performed By: #### L 500.4050, L100.0100 #### [facility] [address] [place], [address] GAP 9 Normal 5-15 [facility] Comment on above: Performed By: #### L 500.4050, L100.0100 #### [facility] [address] [place], [address] GFR/1.73 sq M.predicted among non-blacks MDRD (S/P/Bld) [Vol rate/Area] 83 mL/min/{1.73_m2} Normal >60 [facility] Comment on above: Result Comment: Non- GFR Calc Performed By: #### L 500.4050, L100.0100 #### [facility] [address] [place], [address] Globulin (S) [Mass/Vol] 4.8 g/dL High 2.2-4.2 [facility] Comment on above: Performed By: #### L 500.4050, L100.0100 #### [facility] [address] [place], [address] Glucose [Mass/Vol] 132 mg/dL High 74-106 [facility] Comment on above: Result Comment: Fast ing Glucose result greater than or equal to 126 mg/dL suggests DIABETES MELLITUS per A.D.A. criteria. Performed By: #### L 500.4050, L100.0100 #### [facility] [address] [place], [address] Potassium [Moles/Vol] 3.5 mmol/L Normal 3.5-5.1 [facility] Comment on above: Performed By: #### L 500.4050, L100.0100 #### [facility] [address] [place], [address] Sodium [Moles/Vol] 141 mmol/L Normal 136-145 [facility] Comment on above: Performed By: #### L 500.4050, L100.0100 #### [facility] [address] [place], [address] T PROT 8.5 g/dL High 6.4-8.2 [facility] Comment on above: Performed By: #### L 500.4050, L100.0100 #### [facility] [address] [place], [address] Urea nitrogen [Mass/Vol] 10 mg/dL Normal 7-18 [facility] Comment on above: Performed By: #### L 500.4050, L100.0100 #### [facility] [address] [place], [address] Emergency Department Summary on 03-13-2024 Emergency Department Summary [facility] Medical Records Department [address] [place] [address] Emergency Department Summary 03/13/24 MR#: [id number] Acct: [id number] Name: MARIA ELENAAurelianoDEYSI Rep #: [id number] : 1990 33 From: Jordon Astudillo DO PCP: Dr. Mykel Montoya MD Status:DEP ER Location: ED HPI HPI - GI History of Present Illness Chief Complaint: Abd Pain Informant: patient Abdominal Pain/Flank Pain Onset: Today Context: Sudden Onset Timing: Continuous Quality: Sharp Location: Right Flank Worsened by: Nothing Relieved by: - (Walking, moving) Nausea/Vomiting/Emesis GI Symptom: Positive for Nausea and Vomiting Diarrhea/Melena/Hematoc hezia GI Symptom: Negative for Diarrhea, Melena or Hematochezia Associated Symptoms Associated Symptoms: Negative for Dysuria, Frequency or Hematuria Narrative Narrative: Patient presents with right flank pain that began today. Patient states it began rather suddenly. Patient states is constant. Patient describes her pain as sharp. Patient states it is localized to the right flank. Patient states it was better while she was able to walk and pace. Patient states nothing makes it worse. Patient states she did have an episode of nausea and vomiting. Patient denies any hematemesis or coffee-ground emesis. Patient denies any diarrhea, melena, or hematochezia. Patient states her last menstrual period was 1 month ago. Patient denies any dysuria or hematuria. Patient admits to some sweats and chills. [facility] Medical History delivery delivered Depression Anxiety Pre-eclampsia Vaginal discharge Amenorrhea Asthma Home Medications ???Medication ???Instructions ???Recorded ???Last Taken ???Type ondansetron 4 mg disintegrating 4 mg PO Q8H PRN nausea and 03/30/23 Unknown Rx tablet vomiting #30 tabs fluoxetine 40 mg capsule 40 mg PO DAILY 04/11/23 Unknown History desogestrel 0.15 mg-ethinyl 1 tab PO DAILY #84 tabs 05/17/23 Unknown Rx estradiol 0.03 mg tablet (Enskyce) rosuvastatin 5 mg tablet 5 mg PO DAILY 05/17/23 Unknown History hydrocodone-acetaminoph en 5-325mg 1 tab PO Q6H PRN PRN Pain 3 days 03/13/24 Unknown Rx 5mg-325mg #10 TABLETS Allergy/AdvReac Type Severity Reaction Status Date / Time caffeine Allergy Hives Verified 03/13/24 17:45 amoxicillin trihydrate (From AdvReac Unknown Unknown Verified 03/13/24 17:45 Augmentin) potassium clavulanate (From AdvReac Unknown Verified 03/13/24 17:45 Augmentin) Family History Mother Breast cancer, Onset Age: 60 Graves disease Hypertension Lung cancer Grandmother Breast cancer, Onset Age: 60 Congestive heart failure Grandfather Congestive heart failure Kidney disease Diabetes Surgical History S/P tympanostomy tube placement History of tonsillectomy and adenoidectomy Social History adopted: No household members: spouse and children current occupational status: employed current occupation: [employer] pets and animals: Yes ( does litter box) pets and animals: cat(s) history of recent travel: No sexually active: Yes Smoking Status: Never smoker second hand exposure: No alcohol intake: current details: social- not while substance use type: does not use caffeine: Yes Type: carbonated beverages Number of servings: 1 and tea Number of servings: 1 what type of physical activity do you participate in: walking frequency: 1-2 times per week seatbelt use: always do you feel safe at home: Yes additional social history: -[facility]OD[facility] ED Constitutional Constitutional ED: Reports chills and sweats; Denies fever(s) Eyes Eyes: Denies blurry vision or change in vision ENT ENT ED: Denies rhinorrhea or sore throat Cardiovascular Cardiovascular: Denies chest pain or palpitations Respiratory/Chest Respiratory/Chest: Denies cough or dyspnea Gastrointestinal Gastrointestinal: Reports abdominal pain, nausea and vomiting; Denies diarrhea or melena Genitourinary Genitourinary ED: Denies dysuria or hematuria Musculoskeletal Musculoskeletal: Reports back pain; Denies neck pain Integumentary Denies abscess or rash Neurologic Neurologic: Denies headache(s) or weakness Allergic/Immunologic Allergic/Immunologic ED: Denies mouth swelling or urticaria EXAM Physical Exam Const Vital Signs: 03/13/24 17:44 03/13/24 17:47 03/13/24 18:47 Temperature 97.9 F 97.9 F 98.9 F Temperature Source Oral Oral Oral Pulse Rate 103 H 103 H 92 Respiratory Rate 18 18 16 Blood Pressure 117/62 117/62 124/92 H Blood Pressure Mean 80 80 102 Pulse Ox 99 99 99 Oxygen Delivery Metho (more content not included)... Normal [facility] ,Serum,hCG Quali.on 03-13-2024 HCG, SERUM QUAL Negative Normal [facility] Comment on above: Performed By: #### L 700.6800 #### [facility] [address] [place], [address] Urinalysis, Completeon 03-13 BACTERIA RARE Normal None Seen [facility] Comment on above: Order Comment: JEANETTE CTOR TO SPECIFY Performed By: #### L 400.0001 #### [facility] [address] [place], [address] EPI,RENAL 0-5 SEEN Normal 0-5 [facility] Comment on above: Order Comment: JEANETTE CTOR TO SPECIFY Performed By: #### L 400.0001 #### [facility] [address] [place], [address] EPI,SQUAMOUS 0-5 SEEN Normal 5-10 [facility] Comment on above: Order Comment: JEANETTE CTOR TO SPECIFY Performed By: #### L 400.0001 #### [facility] [address] [place], [address] RBC 25-50 SEEN Normal 0-5 [facility] Comment on above: Order Comment: JEANETTE CTOR TO SPECIFY Performed By: #### L 400.0001 #### [facility] [address] [place], [address] WBC 0-5 SEEN Normal 0-5 [facility] Comment on above: Order Comment: JEANETTE CTOR TO SPECIFY Performed By: #### L 400.0001 #### [facility] [address] [place], [address] Mucus Ql (Urine sed) 0 SEEN Normal [facility] Comment on above: Order Comment: COLLE CTOR TO SPECIFY Performed By: #### L 400.0001 #### [facility] [address] [place], [address] Glucose Glucometer (BldC) [M ass/Vol]Ordered By: Lily Duran on 03-30-2023 Glucose [Mass/Vol] 70 mg/dL 74-106 [facility] Comment on above: MANAGEMENT OF PATIEN T CARE PER NURSING PROTOCOL Basophil percentageOrdered B y: Lily Duran on 03-29-2023 WBC (Bld) [#/Vol] 13.2 10*3/uL 4.4-11.0 [facility] Blood erythrocytes count (nu mber/volume)Ordered By: Lily Duran on 03-29-2023 RBC (Bld) [#/Vol] 3.37 10*6/uL 4.2-5.4 [facility] Blood hemoglobin measurement (mass/volume)Ordered By: Lily Duarn on 03-29-2023 Hemoglobin (Bld) [Mass/Vol] 9.6 g/dL 12.0-15.0 [facility] Blood platelet mean volumeOr dered By: Lily Duran on 03-29-2023 Platelet mean volume (Bld) [Entitic vol] 10.5 fL 6.2-12.0 [facility] Determination of erythrocyte mean corpuscular volume (MCV)Ordered By: Lily Duran on 03-29-2023 MCV (RBC) [Entitic vol] 88.4 fL 81-99 [facility] Hematocrit Auto (Bld) [Volum e fraction]Ordered By: Lily Duran on 03-29-2023 Hematocrit (Bld) [Volume fraction] 29.8 % 37-47 [facility] - Hematology and Cell countsOrdered By: Lily Duran on 03-29-2023 Erythrocyte distribution width (RBC) [Entitic vol] 45.4 fL 35.1-43.9 [facility] Erythrocyte distribution width (RBC) [Ratio] 14.1 % 11.6-14.6 [facility] MCH (RBC) [Entitic mass] 28.5 pg 27.0-32.0 [facility] ([facility]BC) [Mass/Vol]Or dered By: Lily Duran on 03-29-2023 MCHC (RBC) [Mass/Vol] 32.2 g/dL 32-36 [facility] Platelets bldOrdered By: Tristen Duran on 03-29-2023 Platelets (Bld) [#/Vol] 211 10*3/uL 150-450 [facility] Absolute lymphocyte countOrd ered By: Lily Duran on 03-28-2023 Lymphocytes Auto (Unsp spec) [#/Vol] 2.38 10*3/uL 0.83-4.51 [facility] Basophil percentageOrdered B y: Lily Duran on 03-28-2023 Basophils/100 WBC (Bld) 0.4 % 0-1 [facility] Bilirubin [Mass/Vol] 0.20 mg/dL 0.20-1.00 [facility] Comment on above: For patients on eltr ombopag therapy, use of Dimension Lapaz TBIL is not recommended. Chloride [Moles/Vol] 108 mmol/L 98-107 [facility] Eosinophils/100 WBC (Bld) 2.3 % 0-5 [facility] Glucose [Mass/Vol] 71 mg/dL 74-106 [facility] Neutrophils (Bld) [#/Vol] 7.1 10*3/uL 2.0-7.7 [facility] Neutrophils/100 WBC (Bld) 67.8 % 47-70 [facility] Potassium [Moles/Vol] 4.0 mmol/L 3.5-5.1 [facility] Protein [Mass/Vol] 7.4 g/dL 6.4-8.2 [facility] Sodium [Moles/Vol] 138 mmol/L 136-145 [facility] Blood lymphocytes/100 leukoc ytesOrdered By: Lily Duran on 03-28-2023 Lymphocytes/100 WBC (Bld) 22.8 % 19-41 [facility] Blood monocytes/100 leukocyt esOrdered By: Lily Duran on 03-28-2023 Monocytes/100 WBC (Bld) 6.2 % 0-10 [facility] - Chemistry and C hemistry - challengeOrdered By: Lily Duran on 03-28-2023 ALP [Catalytic activity/Vol] 206 U/L 45-117 [facility] ALT [Catalytic activity/Vol] 15 U/L 13-56 [facility] CO2 [Moles/Vol] 22.0 mmol/L 21.0-32.0 [facility] Globulin (S) [Mass/Vol] 5.0 g/dL 2.2-4.2 [facility] Urea nitrogen/Creatinine [Mass ratio] 15.4 mg/mg 10-20 [facility] - Hematology and Cell countsOrdered By: Lily Duran on 03-28-2023 Immature granulocytes/100 WBC (Bld) 0.500 % 0.0-0.9 [facility] Comment on above: IG% - Immature Granu locytes (promyelocytes, myelocytes and metamyelocytes) > 1% indicates that a LEFT SHIFT is Present. Nucleated RBC/100 WBC (Bld) [Ratio] 0 % 0-5 [facility] No Panel InformationOrdered By: Lily Duran on 03-28-2023 Estimated Creatinine Clearance Calc 132.88 ml/min [facility] Estimated GFR (MDRD) Amer 174 mL/min >60 [facility] Comment on above: GFR Calc Estimated GFR (MDRD) Non-Af Amer 144 mL/min >60 [facility] Comment on above: Non- GFR Calc Serum Treponema species anti body detectionOrdered By: Lily Duran on 03-28-2023 Treponema sp Ab Ql (S) Non-Reactive [facility] Serum or plasma albumin eric urement (mass/volume)Ordered By: Lily Duran on 03-28-2023 Albumin [Mass/Vol] 2.4 g/dL 3.2-5.0 [facility] Serum or plasma albumin/glob ulin mass ratioOrdered By: Lily Duran on 03-28-2023 Albumin/Globulin [Mass ratio] 0.5 {ratio} 0.9-2.4 [facility] Serum or plasma calcium eric urement (mass/volume)Ordered By: Lily Duran on 03-28-2023 Calcium [Mass/Vol] 8.6 mg/dL 8.5-10.1 [facility] Serum or plasma creatinine m easurement (mass/volume)Ordered By: Lily Duran on 03-28-2023 Creatinine [Mass/Vol] 0.52 mg/dL 0.55-1.02 [facility] Comment on above: The validity of the calculated GFR & GFRAA in patients over 70 years has not been determined. Clinical correlation is essential. Serum or plasma urea nitroge n measurement (mass/volume)Ordered By: Lily Duran on 03-28-2023 Urea nitrogen [Mass/Vol] 8 mg/dL 7-18 [facility] Thin prep Papanicolaou smear with manual screeningOrdered By: Lily Duran on 03-28-2023 Thin prep Papanicolaou smear with manual screening 15 U/L 15-37 [facility] Thin prep Papanicolaou smear with manual screening 8 5-15 [facility] Basophil percentageOrdered B y: Araceli Rhodes on 03-26-2023 WBC (Bld) [#/Vol] 11.2 10*3/uL 4.4-11.0 [facility] Blood erythrocytes count (nu mber/volume)Ordered By: Araceli Rhodes on 03-26-2023 RBC (Bld) [#/Vol] 4.12 10*6/uL 4.2-5.4 [facility] Blood hemoglobin measurement (mass/volume)Ordered By: Araceli Rhodes on 03-26-2023 Hemoglobin (Bld) [Mass/Vol] 11.5 g/dL 12.0-15.0 [facility] Blood platelet mean volumeOr dered By: Araceli Rhodes on 03-26-2023 Platelet mean volume (Bld) [Entitic vol] 10.9 fL 6.2-12.0 [facility] Determination of erythrocyte mean corpuscular volume (MCV)Ordered By: Araceli Rhodes on 03-26-2023 MCV (RBC) [Entitic vol] 86.7 fL 81-99 [facility] Hematocrit Auto (Bld) [Volum e fraction]Ordered By: Araceli Rhodes on 03-26-2023 Hematocrit (Bld) [Volume fraction] 35.7 % 37-47 [facility] - Chemistry and C hemistry - challengeOrdered By: Araceli Rhodes on 03-26-2023 ALT [Catalytic activity/Vol] 14 U/L 13-56 [facility] - Hematology and Cell countsOrdered By: Araceli Rhodes on 03-26-2023 Erythrocyte distribution width (RBC) [Entitic vol] 42.2 fL 35.1-43.9 [facility] Erythrocyte distribution width (RBC) [Ratio] 13.6 % 11.6-14.6 [facility] MCH (RBC) [Entitic mass] 27.9 pg 27.0-32.0 [facility] MCHC Auto (RBC) [Mass/Vol]Or dered By: Araceli Rhodes on 03-26-2023 MCHC (RBC) [Mass/Vol] 32.2 g/dL 32-36 [facility] No Panel InformationOrdered By: Araceli Rhodes on 03-26-2023 Estimated Creatinine Clearance Calc 143.95 ml/min [facility] Estimated GFR (MDRD) Amer 189 mL/min >60 [facility] Comment on above: GFR Calc Estimated GFR (MDRD) Non-Af Amer 157 mL/min >60 [facility] Comment on above: Non- GFR Calc Platelets bldOrdered By: Gema Rhodes on 03-26-2023 Platelets (Bld) [#/Vol] 281 10*3/uL 150-450 [facility] Serum or plasma creatinine m easurement (mass/volume)Ordered By: Araceli Rhodes on 03-26-2023 Creatinine [Mass/Vol] 0.48 mg/dL 0.55-1.02 [facility] Comment on above: The validity of the calculated GFR & GFRAA in patients over 70 years has not been determined. Clinical correlation is essential. Serum or plasma uric acid me asurement (mass/volume)Ordered By: Araceli Rhodes on 03-26-2023 Urate [Mass/Vol] 5.1 mg/dL 2.6-6.0 [facility] Comment on above: The drugs N-Acetylcy steine and Metamizole may falsely depress this assay. Thin prep Papanicolaou smear with manual screeningOrdered By: Araceli Rhodes on 03-26-2023 Thin prep Papanicolaou smear with manual screening 14 U/L 15-37 [facility] Urine creatinine measurement (mass/volume)Ordered By: Araceli Rhodes on 03-26-2023 Creatinine (U) [Mass/Vol] 168.00 mg/dL NO RANGE EST. [facility] Urine protein measurement (m ass/volume)Ordered By: Araceli Rhodes on 03-26-2023 Protein (U) [Mass/Vol] 62.1 mg/dL 0.0-11.8 [facility] Urine protein/creatinine mas s ratioOrdered By: Araceli Rhodes on 03-26-2023 Protein/Creatinine (U) [Mass ratio] 370 mg/g CRE 0-200 [facility] - Chemistry and C hemistry - challengeon 03-13-2023 Glucose Ql (U) Negative [facility] - Urinalysison Protein Ql (U) Negative [facility] - Chemistry and C hemistry - challengeon 03-01-2023 Glucose Ql (U) Negative [facility] - Urinalysison Protein Ql (U) Trace [facility] - Chemistry and C hemistry - challengeon 02-16-2023 Glucose Ql (U) Negative [facility] - Urinalysison Protein Ql (U) Negative [facility] - Chemistry and C hemistry - challengeon 02-03-2023 Glucose Ql (U) Negative [facility] - Urinalysison Protein Ql (U) Negative [facility] Quantitative serum or plasma 3 hour gestational glucose tolerance panelOrdered By: Tracy Bowman on 01-30-2023 Glucose tolerance 3 hours gestational panel See comment [facility] Comment on above: FASTING 85 Col: 01/07 09/27 0703GLUCOSE TOLERANCE TEST FOR Reference Interval GESTATIONAL DIABETES Fasting <105 mg/dL 1 hour <190 mg/dl 2 hour <165 mg/dl 3 hour <145 mg/dl 1 HR GLU 162 Col: 01/30/23 0805 2 HR GLU 142 Col: 01/30/23 0905 3 HR GLU 127 Col: 01/30/23 1007 Absolute lymphocyte countOrd ered By: Cassia Alba on 01-21-2023 Lymphocytes Auto (Unsp spec) [#/Vol] 2.02 10*3/uL 0.83-4.51 [facility] Basophil percentageOrdered B y: Cassia Alba on 01-21-2023 Basophils/100 WBC (Bld) 0.3 % 0-1 [facility] Eosinophils/100 WBC (Bld) 1.9 % 0-5 [facility] Neutrophils (Bld) [#/Vol] 7.8 10*3/uL 2.0-7.7 [facility] Neutrophils/100 WBC (Bld) 73.9 % 47-70 [facility] WBC (Bld) [#/Vol] 10.6 10*3/uL 4.4-11.0 [facility] Blood erythrocytes count (nu mber/volume)Ordered By: Cassia Alba on 01-21-2023 RBC (Bld) [#/Vol] 3.77 10*6/uL 4.2-5.4 [facility] Blood hemoglobin measurement (mass/volume)Ordered By: Cassia Alba on 01-21-2023 Hemoglobin (Bld) [Mass/Vol] 11.6 g/dL 12.0-15.0 [facility] Blood lymphocytes/100 leukoc ytesOrdered By: Cassia Alba on 01-21-2023 Lymphocytes/100 WBC (Bld) 19.1 % 19-41 [facility] Blood monocytes/100 leukocyt esOrdered By: Cassia Alba on 01-21-2023 Monocytes/100 WBC (Bld) 4.4 % 0-10 [facility] Blood platelet mean volumeOr dered By: Cassia Alba on 01-21-2023 Platelet mean volume (Bld) [Entitic vol] 10.1 fL 6.2-12.0 [facility] Determination of erythrocyte mean corpuscular volume (MCV)Ordered By: Cassia Alba on 01-21-2023 MCV (RBC) [Entitic vol] 90.7 fL 81-99 [facility] Gestational diabetes screen 1-hour screen with 50g oral glucose loadOrdered By: Cassia Alba on 01-21-2023 Glucose 1 Hr post 50 g glucose PO [Mass/Vol] 149 mg/dL 70-140 [facility] HIV 1 and HIV-2 antibody ass ay with HIV-1 p24 antigen detectionOrdered By: Cassia Alba on 01-21-2023 HIV 1+2 Ab+HIV1 p24 Ag IA Ql Non-Reactive Nonreactive [facility] Hematocrit Auto (Bld) [Volum e fraction]Ordered By: Cassia Alba on 01-21-2023 Hematocrit (Bld) [Volume fraction] 34.2 % 37-47 [facility] - Hematology and Cell countsOrdered By: Cassia Alba on 01-21-2023 Erythrocyte distribution width (RBC) [Entitic vol] 45.8 fL 35.1-43.9 [facility] Erythrocyte distribution width (RBC) [Ratio] 14.1 % 11.6-14.6 [facility] Immature granulocytes/100 WBC (Bld) 0.400 % 0.0-0.9 [facility] Comment on above: IG% - Immature Granu locytes (promyelocytes, myelocytes and metamyelocytes) > 1% indicates that a LEFT SHIFT is Present. MCH (RBC) [Entitic mass] 30.8 pg 27.0-32.0 [facility] Nucleated RBC/100 WBC (Bld) [Ratio] 0 % 0-5 [facility] MCHC Auto (RBC) [Mass/Vol]Or dered By: Cassia Alba on 01-21-2023 MCHC (RBC) [Mass/Vol] 33.9 g/dL 32-36 [facility] Platelets bldOrdered By: Delores Alba on 01-21-2023 Platelets (Bld) [#/Vol] 300 10*3/uL 150-450 [facility] Serum Treponema species anti body detectionOrdered By: Cassia Alba on 01-21-2023 Treponema sp Ab Ql (S) Non-Reactive [facility] Cervical or vagninal specime n microscopic examination by cytology stain (reported asOrdered By: Araceli Rhodes on 01-06-2023 Cytology report Cyto stain Doc (Cvx/Vag) Comment . [facility] Comment on above: The Pap smear is a s creening test designed to aid in thedetection of premalignant and malignant conditions of theuterine cervix. It is not a diagnostic procedure andshould not be used as the sole means of detecting cervicalcancer. Both false-positive and false-negative reports dooccur. Chlamydia trachomatis rRNA d etection by probe and target amplification methodOrdered By: Araceli Rhodes on 01-06-2023 C. trachomatis rRNA JACQUELINE+probe Ql (Unsp spec) Negative Negative [facility] Culture, urineOrdered By: Julissa Rhodes on 01-06-2023 Bacteria identified Cx Nom (U) Positive [facility] Bacteria identified Cx Nom (U) Positive [facility] Detection in cervical specim en of any of human papilloma virus (HPV) 16, 18, 31, 33,Ordered By: Araceli Rhodes on 01-06-2023 HPV 16+18+31+33+35+39+45+51 +52+56+58+59+66+68 DNA Probe+sig amp Ql (Cvx) Negative Negative [facility] Comment on above: This nucleic acid am plification test detects fourteen high-risk HPV types (16,18,31,33,35,39,45,51,52,56,58,59,66,68)without differentiation. Gram stain for investigation of transfusion reactionOrdered By: Araceli Rhodes on 01-06-2023 Microscopic observation Gram stain Nom (Unsp spec) [facility] Microscopic observation Gram stain Nom (Unsp spec) [facility] Laboratory - Chemistry and C hemistry - challengeon 01-06-2023 Bilirubin Ql (U) Negative [facility] Glucose Ql (U) Negative [facility] Ketones Ql (U) Negative [facility] pH (U) 6.0 [pH] [facility] Specific gravity (U) [Rel density] 1.005 [facility] Laboratory - CytologyOrdered By: Araceli Rhodes on 01-06-2023 Last Sorter Cyto stain Nom (Cvx/Vag) [ID] Comment . [facility] Comment on above: Yessica Urena Cyto technologist (ASCP) Laboratory - Hematology and Cell countson 01-06-2023 Hemoglobin Ql (U) Negative [facility] Laboratory - Microbiology an d Antimicrobial susceptibilityOrdered By: Araceli Rhodes on 01-06-2023 N. gonorrhoeae DNA JACQUELINE+probe Ql (Unsp spec) Negative Negative [facility] Comment on above: Performed at: =G - [address] [id number] Director: Jennifer Dobson MD, Phone: [phone] Laboratory - Miscellaneous t estsOrdered By: Araceli Rhodes on 01-06-2023 Service comment (Unsp spec) [Interp] Comment . [facility] Comment on above: This liquid based Th inPrep(R) pap test was screened withthe use of an image guided system. Service comment (Unsp spec) [Interp] . . [facility] Laboratory - Specimen inform ationon 01-06-2023 Clarity (U) Clear [facility] Color (U) YELLOW [facility] Laboratory - Urinalysison Nitrite Ql (U) Negative [facility] Protein Ql (U) Negative [facility] Liquid-based cerv Pap + CT/G C by JACQUELINE w reflex to high-risk HPV for ASCUSOrdered By: Araceli Rhodes on 01-06-2023 Cytology report Cyto stain.thin prep Doc (Cvx/Vag) Comment . [facility] Comment on above: Criteria not met, HP V Genotype not performed.Performed at: - [facility] [id number] Director: Jennifer Dobson MD, Phone: [phone] at: = - [facility] [id number] Director: Jennifer Dobson MD, Phone: [phone] No Panel InformationOrdered By: Araceli Rhodes on 01-06-2023 Pathology report final diagnosis Narrative Comment . [facility] Comment on above: NEGATIVE FOR INTRAEP ITHELIAL LESION OR MALIGNANCY.SPECIMEN REPROCESSED FOR INTERPRETATION USING GLACIAL ACETIC ACID(GAA). No Panel Informationon 01-06 Urine Leukocytes Negatve [facility] Thin prep Papanicolaou smear with manual screeningOrdered By: Araceli Rhodes on 01-06-2023 Genital Culture G. vaginalis (Presumptive) [facility] Genital Culture G. vaginalis (Presumptive) [facility] Laboratory - Chemistry and C hemistry - challengeon 12-16-2022 Glucose Ql (U) Negative [facility] Laboratory - Urinalysison Protein Ql (U) Negative [facility] Laboratory - Chemistry and C hemistry - challengeon 10-26-2022 Glucose Ql (U) Negative [facility] Laboratory - Urinalysison Protein Ql (U) Negative [facility] Absolute lymphocyte countOrd ered By: Ayana Moreno on 10-04-2022 Lymphocytes Auto (Unsp spec) [#/Vol] 2.61 10*3/uL 0.83-4.51 [facility] Basophil percentageOrdered B y: Ayana Moreno on 10-04-2022 C. trachomatis DNA JACQUELINE+probe Ql (Unsp spec) Negative Negative [facility] Basophils/100 WBC (Bld) 0.5 % 0-1 [facility] Eosinophils/100 WBC (Bld) 3.1 % 0-5 [facility] Neutrophils (Bld) [#/Vol] 7.4 10*3/uL 2.0-7.7 [facility] Neutrophils/100 WBC (Bld) 66.0 % 47-70 [facility] WBC (Bld) [#/Vol] 11.3 10*3/uL 4.4-11.0 [facility] Blood erythrocytes count (nu mber/volume)Ordered By: Ayana Moreno on 10-04-2022 RBC (Bld) [#/Vol] 4.35 10*6/uL 4.2-5.4 [facility] Blood hemoglobin measurement (mass/volume)Ordered By: yAana Moreno on 10-04-2022 Hemoglobin (Bld) [Mass/Vol] 13.0 g/dL 12.0-15.0 [facility] Blood lymphocytes/100 leukoc ytesOrdered By: Ayana Moreno on 10-04-2022 Lymphocytes/100 WBC (Bld) 23.2 % 19-41 [facility] Blood monocytes/100 leukocyt esOrdered By: Ayana Moreno on 10-04-2022 Monocytes/100 WBC (Bld) 6.8 % 0-10 [facility] Blood platelet mean volumeOr dered By: Ayana Moreno on 10-04-2022 Platelet mean volume (Bld) [Entitic vol] 10.5 fL 6.2-12.0 [facility] Culture, urineOrdered By: Shakeel Moreno on 10-04-2022 Bacteria identified Cx Nom (U) Positive [facility] Determination of erythrocyte mean corpuscular volume (MCV)Ordered By: Ayana Moreno on 10-04-2022 MCV (RBC) [Entitic vol] 89.7 fL 81-99 [facility] HIV 1 and HIV-2 antibody ass ay with HIV-1 p24 antigen detectionOrdered By: Ayana Moreno on 10-04-2022 HIV 1+2 Ab+HIV1 p24 Ag IA Ql Non-Reactive Nonreactive [facility] Hematocrit Auto (Bld) [Volum e fraction]Ordered By: Ayana Moreno on 10-04-2022 Hematocrit (Bld) [Volume fraction] 39.0 % 37-47 [facility] Laboratory - Hematology and Cell countsOrdered By: Ayana Moreno on 10-04-2022 Erythrocyte distribution width (RBC) [Entitic vol] 44.2 fL 35.1-43.9 [facility] Erythrocyte distribution width (RBC) [Ratio] 13.5 % 11.6-14.6 [facility] Immature granulocytes/100 WBC (Bld) 0.400 % 0.0-0.9 [facility] Comment on above: IG% - Immature Granu locytes (promyelocytes, myelocytes and metamyelocytes) > 1% indicates that a LEFT SHIFT is Present. MCH (RBC) [Entitic mass] 29.9 pg 27.0-32.0 [facility] Nucleated RBC/100 WBC (Bld) [Ratio] 0 % 0-5 [facility] MCHC Auto (RBC) [Mass/Vol]Or dered By: Ayana Moreno on 10-04-2022 MCHC (RBC) [Mass/Vol] 33.3 g/dL 32-36 [facility] Neisseria gonorrhoeae detect ion by PCROrdered By: Ayana Moreno on 10-04-2022 N. gonorrhoeae DNA JACQUELINE+probe Ql (Cervical mucus) Negative Negative [facility] No Panel InformationOrdered By: Ayana Moreno on 10-04-2022 Hepatitis B Surface Antigen Non-Reactive Nonreactive [facility] Hepatitis C Antibody Non-Reactive Nonreactive [facility] Comment on above: Non Reactive: < 0.8 Equivocal: >/= 0.8 to < 1.0 Reactive: >/= 1.0The CDC recommends that a reactive/equivocal HCV antibody result be followed up by the HCV Nucleic Acid Amplificationtest (144575) Miscellaneous Test Comment MAILED SPECIMEN [facility] Rubella IgG Antibody Reactive Nonreactive [facility] Comment on above: Antibody Results Int erpretation of Immune Status Non Reactive Presumed Non-Immune Equivocal Equivocal Reactive Presumed Immune Platelets bldOrdered By: Pascual Moreno on 10-04-2022 Platelets (Bld) [#/Vol] 333 10*3/uL 150-450 [facility] Serum Treponema species anti body detectionOrdered By: Ayana Moreno on 10-04-2022 Treponema sp Ab Ql (S) Non-Reactive [facility] Laboratory - Chemistry and C hemistry - challengeon 09-21-2022 Glucose Ql (U) Negative [facility] Laboratory - Urinalysison Protein Ql (U) Negative [facility] Serum or plasma choriogonado tropin detectionOrdered By: Dr. Duran on 08-31-2022 HCG ( test) Ql 2174 mIU/mL <4 [facility] Comment on above: hCG levels with Gest ational AgeGestational Age hCG mIU/mL (IU/L)0.2 - 1 week 5 - 501-2 weeks 50 - 5002-3 weeks 100 - 91414-8 weeks 500 - 010508-6 weeks 1000 - 264913-2 weeks 57764 - 100,0006-8 weeks 73524 - 200,0002-3 months 43371 - 100,000 Serum or plasma choriogonado tropin detectionOrdered By: Dr. Duran on 08-29-2022 HCG ( test) Ql 1532 mIU/mL <4 [facility] Comment on above: hCG levels with Gest ational AgeGestational Age hCG mIU/mL (IU/L)0.2 - 1 week 5 - 501-2 weeks 50 - 5002-3 weeks 100 - 17506-4 weeks 500 - 697975-5 weeks 1000 - 325385-5 weeks 59170 - 100,0006-8 weeks 74421 - 200,0002-3 months 39122 - 100,000 Serum or plasma choriogonado tropin detectionOrdered By: Dr. Alba on 08-26-2022 HCG ( test) Ql 709 mIU/mL <4 [facility] Comment on above: hCG levels with Gest ational AgeGestational Age hCG mIU/mL (IU/L)0.2 - 1 week 5 - 501-2 weeks 50 - 5002-3 weeks 100 - 26812-0 weeks 500 - 689028-0 weeks 1000 - 439924-6 weeks 65215 - 100,0006-8 weeks 95270 - 200,0002-3 months 07060 - 100,000 Serum or plasma choriogonado tropin detectionOrdered By: Dr. Alba on 08-24-2022 HCG ( test) Ql 491 mIU/mL <4 [facility] Comment on above: hCG levels with Gest ational AgeGestational Age hCG mIU/mL (IU/L)0.2 - 1 week 5 - 501-2 weeks 50 - 5002-3 weeks 100 - 19429-1 weeks 500 - 658633-9 weeks 1000 - 664565-7 weeks 30713 - 100,0006-8 weeks 35067 - 200,0002-3 months 86364 - 100,000 Cervical or vagninal specime n microscopic examination by cytology stain (reported asOrdered By: Nelly Lopez on 06-13-2022 Cytology report Cyto stain Doc (Cvx/Vag) Comment . [facility] Comment on above: The Pap smear is a s creening test designed to aid in thedetection of premalignant and malignant conditions of theuterine cervix. It is not a diagnostic procedure andshould not be used as the sole means of detecting cervicalcancer. Both false-positive and false-negative reports dooccur. Detection in cervical specim en of any of human papilloma virus (HPV) 16, 18, 31, 33,Ordered By: Nelly Lopez on 06-13-2022 HPV 16+18+31+33+35+39+45+51 +52+56+58+59+68 DNA Probe+sig amp Ql (Cvx) Negative [facility] Laboratory - CytologyOrdered By: Nelly Lopez on 06-13-2022 Last Sorter Cyto stain Nom (Cvx/Vag) [ID] Comment . [facility] Comment on above: Nelly Lassiter Cytot echnologist (ASCP) Laboratory - Miscellaneous t estsOrdered By: Nelly Lopez on 06-13-2022 Service comment (Unsp spec) [Interp] Comment . [facility] Comment on above: This liquid based Th inPrep(R) pap test was screened withthe use of an image guided system. Service comment (Unsp spec) [Interp] . . [facility] No Panel InformationOrdered By: Nelly Lopez on 06-13-2022 Pathology report final diagnosis Narrative Comment . [facility] Comment on above: NEGATIVE FOR INTRAEP ITHELIAL LESION OR MALIGNANCY. Basophil percentageOrdered B y: Dr. Montoya on 05-19-2022 Chloride [Moles/Vol] 105 mmol/L 98-107 [facility] Glucose [Mass/Vol] 72 mg/dL 74-106 [facility] Potassium [Moles/Vol] 4.0 mmol/L 3.5-5.1 [facility] Sodium [Moles/Vol] 138 mmol/L 136-145 [facility] Laboratory - Chemistry and C hemistry - challengeOrdered By: Dr. Montoya on 05-19-2022 CO2 [Moles/Vol] 22.0 mmol/L 21.0-32.0 [facility] Urea nitrogen/Creatinine [Mass ratio] 14.9 mg/mg 10-20 [facility] No Panel InformationOrdered By: Dr. Montoya on 05-19-2022 Estimated GFR (MDRD) Amer 147 mL/min >60 [facility] Comment on above: GFR Calc Estimated GFR (MDRD) Non-Af Amer 122 mL/min >60 [facility] Comment on above: Non- GFR Calc Thyroid Stimulating Hormone (TSH) 2.62 uIU/mL 0.358-3.74 [facility] Vitamin D 25-Hydroxy 23.9 ng/mL [facility] Comment on above: Vitamin D 25(OH) Sta tus Range Deficiency <20 ng/mL (50nmol/L) Insufficiency 20 - 30 ng/mL (50 - 75 nmol/L) Sufficiency 30 - 100 ng/mL (75 - 250 nmol/L) Toxicity >100 ng/mL (>250 nmol/L) Serum or plasma calcium eric urement (mass/volume)Ordered By: Dr. Montoya on 05-19-2022 Calcium [Mass/Vol] 9.2 mg/dL 8.5-10.1 [facility] Serum or plasma creatinine m easurement (mass/volume)Ordered By: Dr. Montoya on 05-19-2022 Creatinine [Mass/Vol] 0.60 mg/dL 0.55-1.02 [facility] Comment on above: The validity of the calculated GFR & GFRAA in patients over 70 years has not been determined. Clinical correlation is essential. Serum or plasma urea nitroge n measurement (mass/volume)Ordered By: Dr. Montoya on 05-19-2022 Urea nitrogen [Mass/Vol] 9 mg/dL 7-18 [facility] Thin prep Papanicolaou smear with manual screeningOrdered By: Dr. Montoya on 05-19-2022 Thin prep Papanicolaou smear with manual screening 11 5-15 [facility] Basophil percentageon 2021 Cholesterol [Mass/Vol] 166 mg/dL <200 [facility] Work Phone: Comment on above: <200 mg/dL Desirable 200-240 mg/dL Borderline >240 mg/dL High Risk Triglyceride [Mass/Vol] 130 mg/dL [facility] Work Phone: Comment on above: The drugs N-Acetylcy steine and Metamizole may falsely depress this assay.Serum Triglycerides Reference Interval Normal <150 mg/dL Borderline high 150 - 199 mg/dL High 200 - 499 mg/dL Very High > or = 500 mg/dL Serum or plasma cholesterol in HDL measurement (mass/volume)on 10-02-2021 Cholesterol in HDL [Mass/Vol] 42 mg/dL [facility] Work Phone: Comment on above: The drugs N-Acetylcy steine and Metamizole may falsely depress this assay. Reference Range HDL <40 mg/dL Low HDL Cholesterol HDL >or= 60 mg/dL High HDL Cholesterol Serum or plasma cholesterol in VLDL measurement (mass/volume)on 10-02-2021 Cholesterol in VLDL [Mass/Vol] 26 mg/dL 5-40 [facility] Work Phone: Serum or plasma low density lipoprotein (LDL) cholesterol measurement (mass/volume)on 10-02-2021 Cholesterol in LDL [Mass/Vol] 98 mg/dL 0-130 [facility] Work Phone: Basophil percentageon 2021 Cholesterol [Mass/Vol] 258 mg/dL <200 [facility] Work Phone: Comment on above: <200 mg/dL Desirable 200-240 mg/dL Borderline >240 mg/dL High Risk Triglyceride [Mass/Vol] 155 mg/dL [facility] Work Phone: Comment on above: The drugs N-Acetylcy steine and Metamizole may falsely depress this assay.Serum Triglycerides Reference Interval Normal <150 mg/dL Borderline high 150 - 199 mg/dL High 200 - 499 mg/dL Very High > or = 500 mg/dL Serum or plasma cholesterol in HDL measurement (mass/volume)on 06-28-2021 Cholesterol in HDL [Mass/Vol] 44 mg/dL [facility] Work Phone: Comment on above: The drugs N-Acetylcy steine and Metamizole may falsely depress this assay. Reference Range HDL <40 mg/dL Low HDL Cholesterol HDL >or= 60 mg/dL High HDL Cholesterol Serum or plasma cholesterol in VLDL measurement (mass/volume)on 06-28-2021 Cholesterol in VLDL [Mass/Vol] 31 mg/dL 5-40 [facility] Work Phone: Serum or plasma low density lipoprotein (LDL) cholesterol measurement (mass/volume)on 06-28-2021 Cholesterol in LDL [Mass/Vol] 183 mg/dL 0-130 [facility] Work Phone: Laboratory - Microbiology an d Antimicrobial susceptibilityon 06-09-2021 SARS-CoV-2 (COVID-19) RNA JACQUELINE+probe Ql (Unsp spec) Not detected Not Detect [facility] Work Phone: Comment on above: Normal Reference Ran ge: Not DetectedMethod:(RT-PCR) real-time reverse transcriptase PCRLuminex KASSIE Instrument*The Food and Drug Administration (FDA) has issued an Emergency Use Authorization (EAU) for the KASSIE SARS-CoV-2 Assay for the rapid detection of the virus that causes COVID-19. This test has been validated, but the FDAs independent review of this validation is pending.*Negative results do not preclude infection and should not be used as the sole basis for treatment or patient management. Optimum specimen types and timing for peak viral levels during infections caused by SARS-CoV-2 have not been determined. Collection of multiple specimens from the same patient may be necessary to detect the virus. The possibility of a false negative result should be considered if the patient has clinical presentation or has had recent exposure. FT4on 12-05-2016 Thyroxine (T4) free 0.8 ng/mL Normal 0.6-1.7 [facility] ([place]) Comment on above: Result Comment: Melissao w normal(expected)range Performed By: #### G ARABELLA, TSH, FT4 ####[address] [place], [place] [address] GLUon 12-05-2016 Glucose mass conc 75 mg/dL Normal 70-105 [facility] ([place]) Comment on above: Performed By: #### G ARABELLA, TSH, FT4 ####[address] [place], [place] [address] TSHon 12-05-2016 Thyroid stimulating hormone (TSH) 1.56 mcIU/mL Normal 0.27-4.20 [facility] ([place]) Comment on above: Performed By: #### G ARABELLA, TSH, FT4 ####[address] [place], [place] [address] Vital Signs Date Time Vital Sign Value Performing Clinician Josie perrin 08-14-2024 14:37-0400 Body height 162.[address] Mykel Montoya MD Work Phone: [facility] 08-14-2024 14:36-0400 Body mass index (BMI) [Ratio] 32.5 kg/m2 Dr. Mykel Montoya MD Work Phone: [facility] 08-14-2024 14:36-0400 Body weight 86.[address] Mykel Montoya MD Work Phone: [facility] 08-14-2024 14:36-0400 Diastolic blood pressure 79 mm[Hg] Dr. Mykel Montoya MD Work Phone: [facility] 08-14-2024 14:36-0400 Systolic blood pressure 128 mm[Hg] Dr. Mykel Montoya MD Work Phone: [facility] 03-30-2023 12:38-0500 Body temperature 98 [degF] Dr. Mykel Montoya Work Phone: [facility] 03-30-2023 12:38-0500 Diastolic blood pressure 71 mm[Hg] Dr. Mykel Montoya Work Phone: [facility] 03-30-2023 12:38-0500 Heart rate 91 /min Dr. Mykel Montoya Work Phone: [facility] 03-30-2023 12:38-0500 Respiratory rate 14 /min Dr. Mykel Montoya Work Phone: 0(790)[phone] [place] [address] 03-30-2023 12:38-0500 SaO2% (BldA) [Mass fraction] 98 % Dr. Mykel Montoya Work Phone: [facility] 03-30-2023 12:38-0500 Systolic blood pressure 122 mm[Hg] Dr. Mykel Montoya Work Phone: [facility] 03-28-2023 09:26-0500 Body height 162.[address] Mykel Montoya Work Phone: 2(119)[phone] [address] 03-28-2023 09:26-0500 Body mass index (BMI) [Ratio] 33.3 kg/m2 Dr. Mykel Montoya Work Phone: [facility] 03-28-2023 09:26-0500 Body weight 88.[address] Mykle Montoya Work Phone: [facility] 03-26-2023 12:45-0500 Diastolic blood pressure 80 mm[Hg] Dr. Mykel Montoya Work Phone: [facility] 03-26-2023 12:45-0500 Heart rate 73 /min Dr. Mykel Montoya Work Phone: [facility] 03-26-2023 12:45-0500 Systolic blood pressure 140 mm[Hg] Dr. Mykel Montoya Work Phone: [facility] 03-26-2023 12:05-0500 Body height 162.[address] Mykel Montoya Work Phone: [facility] 03-26-2023 12:05-0500 Body mass index (BMI) [Ratio] 33.5 kg/m2 Dr. Mykel Montoya Work Phone: [facility] 03-26-2023 12:05-0500 Body weight 88.[address] Mykel Montoya Work Phone: [facility] 03-13-2023 09:58-0500 Body mass index (BMI) [Ratio] 33.1 kg/m2 Dr. Mykel Montoya Work Phone: [facility] 03-13-2023 09:58-0500 Body weight 87.[address] Mykel Montoya Work Phone: [facility] 03-13-2023 09:58-0500 Diastolic blood pressure 83 mm[Hg] Dr. Mykel Montoya Work Phone: [facility] 03-13-2023 09:58-0500 Systolic blood pressure 129 mm[Hg] Dr. Mykel Montoya Work Phone: [facility] 03-01-2023 11:37-0400 Body mass index (BMI) [Ratio] 33 kg/m2 Dr. Mykel Montoya Work Phone: [facility] 03-01-2023 11:37-0400 Body weight 87.[address] Mykel Montoya Work Phone: [facility] 03-01-2023 11:37-0400 Diastolic blood pressure 89 mm[Hg] Dr. Mykel Montoya Work Phone: [facility] 03-01-2023 11:37-0400 Systolic blood pressure 129 mm[Hg] Dr. Mykel Montoya Work Phone: [facility] 02-16-2023 11:54-0400 Body mass index (BMI) [Ratio] 32.3 kg/m2 Dr. Mykel Montoya Work Phone: [facility] 02-16-2023 11:54-0400 Body weight 85.[address] Mykel Montoya Work Phone: [facility] 02-16-2023 11:54-0400 Diastolic blood pressure 82 mm[Hg] Dr. Mykel Montoya Work Phone: [facility] 02-16-2023 11:54-0400 Systolic blood pressure 124 mm[Hg] Dr. Mykel Montoya Work Phone: 9(796)[phone] [place] [address] 02-03-2023 11:32-0400 Body mass index (BMI) [Ratio] 32.1 kg/m2 Dr. Mykel Montoya Work Phone: 1(400)[phone] [place] [address] 02-03-2023 11:32-0400 Body weight 84.[address] Mykel Montoya Work Phone: 9(821)131-383518 [address] 02-03-2023 11:32-0400 Diastolic blood pressure 72 mm[Hg] Dr. Mykel Montoya Work Phone: 0(652)[phone] [place] [address] 02-03-2023 11:32-0400 Systolic blood pressure 126 mm[Hg] Dr. Mykel Montoya Work Phone: 7(665)266-488418 [address] 01-06-2023 14:34-0400 Body height 162.[address] Mykel Montoya Work Phone: 9(602)219-624718 [address] 01-06-2023 14:33-0400 Body mass index (BMI) [Ratio] 31.6 kg/m2 Dr. Mykel Montoya Work Phone: 3(460)024-648436 [place] [address] 01-06-2023 14:33-0400 Body weight 83.[address] Mykel Montoya Work Phone: [facility] 01-06-2023 14:33-0400 Diastolic blood pressure 70 mm[Hg] Dr. Mykel Montoya Work Phone: 0(194)992-762336 [place] [address] 01-06-2023 14:33-0400 Systolic blood pressure 132 mm[Hg] Dr. Mykel Montoya Work Phone: 5(338)[phone] [place] [address] 12-16-2022 09:24-0400 Body mass index (BMI) [Ratio] 31.4 kg/m2 Dr. Mykel Montoya Work Phone: [facility] 12-16-2022 09:24-0400 Body weight 83.[address] Mykel Montoya Work Phone: [facility] 12-16-2022 09:24-0400 Diastolic blood pressure 81 mm[Hg] Dr. Mykel Montoya Work Phone: [facility] 12-16-2022 09:24-0400 Systolic blood pressure 112 mm[Hg] Dr. Mykel Montoya Work Phone: [facility] 11-15-2022 13:56-0400 Body height 162.[address] Mykel Montoya Work Phone: [facility] 11-15-2022 13:56-0400 Body mass index (BMI) [Ratio] 30.9 kg/m2 Dr. Mykel Montoya Work Phone: [facility] 11-15-2022 13:56-0400 Body weight 81.[address] Mykel Montoya Work Phone: [facility] 11-15-2022 13:56-0400 Diastolic blood pressure 74 mm[Hg] Dr. Mykel Montoya Work Phone: [facility] 11-15-2022 13:56-0400 Systolic blood pressure 126 mm[Hg] Dr. Mykel Montoya Work Phone: [facility] 10-26-2022 13:26-0400 Body mass index (BMI) [Ratio] 30.9 kg/m2 Dr. Mykel Montoya Work Phone: [facility] 10-26-2022 13:26-0400 Body weight 81.[address] Mykel Montoya Work Phone: [facility] 10-26-2022 13:26-0400 Diastolic blood pressure 72 mm[Hg] Dr. Mykel Montoya Work Phone: [facility] 10-26-2022 13:26-0400 Systolic blood pressure 128 mm[Hg] Dr. Mykel Montoya Work Phone: [facility] 10-04-2022 11:36-0400 Body mass index (BMI) [Ratio] 31.1 kg/m2 Dr. Mykel Montoya Work Phone: [facility] 10-04-2022 11:36-0400 Body weight 82.[address] Mykel Montoya Work Phone: [facility] 09-21-2022 16:40-0400 Body mass index (BMI) [Ratio] 31.6 kg/m2 Dr. Mykel Montoya Work Phone: [facility] 09-21-2022 16:40-0400 Diastolic blood pressure 71 mm[Hg] Dr. Mykel Montoya Work Phone: [facility] 09-21-2022 16:40-0400 Systolic blood pressure 118 mm[Hg] Dr. Mykel Montoya Work Phone: [facility] 09-21-2022 11:34-0400 Body weight 83.[address] Mykel Montoya Work Phone: [facility] 09-07-2022 09:30-0400 Body height 162.[address] Mykel Montoya Work Phone: [facility] 09-07-2022 09:30-0400 Body mass index (BMI) [Ratio] 31.2 kg/m2 Dr. Mykel Montoya Work Phone: [facility] 09-07-2022 09:30-0400 Body weight 82.[address] Mykel Montoya Work Phone: [facility] 09-07-2022 09:30-0400 Diastolic blood pressure 84 mm[Hg] Dr. Mykel Montoya Work Phone: [facility] 09-07-2022 09:30-0400 Systolic blood pressure 118 mm[Hg] Dr. Mykel Montoya Work Phone: [facility] 09-01-2022 09:14-0400 Body height 162.[address] Mykel Montoya Work Phone: [facility] 09-01-2022 09:14-0400 Body mass index (BMI) [Ratio] 31.2 kg/m2 Dr. Mykel Montoya Work Phone: [facility] 09-01-2022 09:14-0400 Body weight 82.[address] Mykel Montoya Work Phone: [facility] 09-01-2022 09:14-0400 Diastolic blood pressure 84 mm[Hg] Dr. Mykel Montoya Work Phone: [facility] 09-01-2022 09:14-0400 Systolic blood pressure 122 mm[Hg] Dr. Mykel Montoya Work Phone: [facility] Encounters Encounter Date Encounter Type Care Provider Facility Start: 03-11-2025 End: 03-11-2025 ambulatory MYKEL MONTOYA Facility:[facility] Start: 03-08-2025 End: 03-08-2025 ambulatory Mykel Montoya Facility:[facility] Start: 01-04-2025 End: 01-04-2025 Telemedicine consultation with patient Jackelyn Madden APRN.PHARMACOLOGIST Work Phone: Telemedicine Comment on above: Hand, foot and mouth disease Start: 01-04-2025 End: 01-04-2025 ambulatory MYKEL MONTOYA Facility:[facility] Start: 01-04-2025 ambulatory MYKEL MONTOYA Facility :[facility] Start: 09-27-2024 End: 09-27-2024 Patient encounter procedure Jaxon JUAREZ -[facility] Work Phone: Start: 09-27-2024 End: 09-27-[address] Mykel Montoya MD Work Phone: [facility] Work Phone: Start: 09-27-2024 End: 09-27-2024 ambulatory Jaxon JUAREZ Facility:[facility] Start: 08-14-2024 End: 08-14-2024 Patient encounter procedure Pamela HEARD -[facility] Work Phone: Start: 08-14-2024 End: 08-14-2024 Patient encounter status Pamela HEARD [facility] Start: 08-14-2024 End: 08-14-2024 ambulatory Pamela Lackey Facility:[facility] Start: 04-16-2024 ambulatory Mykel Montoya Facility:[facility] Start: 03-14-2024 End: 03-15-2024 ambulatory Mykel Montoya Facility:[facility] Start: 03-13-2024 End: 03-13-2024 Emergency department patient visit Mykel Montoya Facility:[facility] Start: 03-30-2023 Non-patient / Non-visit Dr. Larry Montoya Work Phone: [facility] Start: 03-29-2023 Non-patient / Non-visit Dr. Larry Montoya Work Phone: [facility] Start: 03-28-2023 Non-patient / Non-visit Dr. Larry Montoya Work Phone: [facility] Start: 03-28-2023 End: 03-30-2023 Evaluation and management of inpatient Dr. Mykel Montoya Work Phone: [facility] Work Phone: Start: 03-28-2023 End: 03-28-[address] Mykel Montoya Work Phone: [facility] Work Phone: Start: 03-28-2023 End: 03-28-[address] Mykel Montoya Work Phone: [facility] Work Phone: Start: 03-26-2023 Non-patient / Non-visit Dr. Larry Montoya Work Phone: [facility] Start: 03-26-2023 End: 03-26-[address] Mykel Montoya Work Phone: [facility] Work Phone: Start: 03-26-2023 End: 03-26-[address] [facility] Work Phone: Start: 03-24-2023 End: 03-24-[address] Mykel Montoya Work Phone: [facility] Work Phone: Start: 03-13-2023 End: 03-13-[address] Mykel Montoya Work Phone: [facility] Work Phone: Start: 03-01-2023 End: 03-01-[address] Mykel Montoya Work Phone: [facility] Work Phone: Start: 02-16-2023 End: 02-16-[address] Mykel Montoya Work Phone: [facility] Work Phone: Start: 02-03-2023 End: 02-03-[address] Mykel Montoya Work Phone: [facility] Work Phone: Start: 01-30-2023 End: 01-30-[address] [facility] Start: 01-21-2023 End: 01-21-[address] Mykel Montoya Work Phone: [facility] Work Phone: Start: 01-21-2023 End: 01-21-[address] [facility] Start: 01-06-2023 End: 01-06-[address] Mykel Montoya Work Phone: [facility] Work Phone: Start: 01-06-2023 End: 01-06-[address] Mykel Montoya Work Phone: [facility] Work Phone: Start: 12-16-2022 End: 12-16-[address] Mykel Montoya Work Phone: [facility] Work Phone: Start: 12-05-2022 End: 12-05-2022 ambulatory [facility] Start: 11-15-2022 End: 11-15-[address] Mykel Montoya Work Phone: [facility] Work Phone: Start: 10-26-2022 End: 10-26-[address] Mykel Montoya Work Phone: [facility] Work Phone: Start: 10-04-2022 End: 10-04-[address] Mykel Montoya Work Phone: [facility] Work Phone: Start: 10-04-2022 End: 10-04-[address] Mykel Montoya Work Phone: [facility] Work Phone: Start: 09-21-2022 End: 09-21-[address] Mykel Montoya Work Phone: [facility] Work Phone: Start: 09-07-2022 End: 09-07-[address] Mykel Montoya Work Phone: [facility] Work Phone: Start: 09-07-2022 End: 09-07-[address] Mykel Montoya Work Phone: [facility] Start: 09-01-2022 End: 09-01-[address] Mykel Montoya Work Phone: [facility] Start: 08-31-2022 End: 08-31-[address] Mykel Montoya Work Phone: [facility] Work Phone: Start: 08-31-2022 End: 08-31-[address] [facility] Start: 08-29-2022 End: 08-29-[address] Mykel Montoya Work Phone: [facility] Work Phone: Start: 08-29-2022 End: 08-29-[address] [facility] Start: 08-26-2022 End: 08-26-[address] Mykel Montoya Work Phone: [facility] Work Phone: Start: 08-26-2022 End: 08-26-[address] Mykel Montoya Work Phone: [facility] Start: 08-24-2022 End: 08-24-[address] [facility] Mont[facility] Start: 06-28-2022 End: 06-28-2022 ambulatory Dejuan Cannon PA-C Work Phone: Telemedicine Comment on above: Acute sinusitis, rec urrence not specified, unspecified location (Primary Dx) Start: 06-28-2022 End: 06-28-2022 Telemedicine consultation with patient Dejuan Cannon PA-C Work Phone: [facility] Start: 06-26-2022 End: 06-26-2022 ambulatory Yoko Jacob SHEET METAL WORKER SUPERVISOR.PHARMACOLOGIST Work Phone: Telemedicine Comment on above: Treatment not availa ble (Primary Dx) Start: 06-26-2022 End: 06-26-2022 Telemedicine consultation with patient Yoko Jacob APRN.PHARMACOLOGIST Work Phone: [facility] Start: 06-13-2022 End: 06-13-2022 ambulatory [facility] Work Phone: Start: 06-13-2022 End: 06-13-2022 Patient encounter procedure [facility] Start: 05-19-2022 End: 05-19-2022 ambulatory [facility] Work Phone: Start: 05-19-2022 End: 05-19-2022 Patient encounter procedure [facility] Start: 05-03-2022 End: 05-03-2022 Patient encounter procedure [facility] Start: 10-02-2021 End: 10-02-2021 Patient encounter procedure [facility] Start: 09-10-2021 End: 09-10-2021 ambulatory Estelle Joaquimkimberlyn SHEET METAL WORKER SUPERVISOR.PHARMACOLOGIST Work Phone: Telemedicine Comment on above: Acute cystitis witho ut hematuria (Primary Dx) Start: 09-10-2021 End: 09-10-2021 Patient encounter procedure Dagmar Fields SHEET METAL WORKER SUPERVISOR.PHARMACOLOGIST Work Phone: Telemedicine Comment on above: APPOINTMENT CANCELLE D (Primary Dx) Start: 09-10-2021 End: 09-10-2021 Telemedicine consultation with patient Estelle Martinezmike SHEET METAL WORKER SUPERVISOR.PHARMACOLOGIST Work Phone: [facility] Start: 06-28-2021 End: 06-28-2021 [facility] Start: 06-09-2021 End: 06-09-2021 Patient encounter procedure [facility] Start: 12-05-2016 End: 12-06-2016 Ambulatory EARL AMBROSE Facility:[facility] Procedures Date Procedure Procedure Detail Performing Clinician Start: 09-27-2024 X-ray of foot, three or more views Dr. Mykel Montoya MD Work Phone: Start: 03-28-2023 Ultrasonography for antepartum monitoring of fetus Dr. Mykel Montoya Work Phone: Start: 03-24-2023 Ultrasound scan for growth Dr. Mykel Montoya Work Phone: Start: 01-06-2023 Cytopathology proced ure, preparation of smear, genital source Dr. Mykel Montoya Work Phone: Start: 01-06-2023 Investigation of tra nsfusion reaction Dr. Mykel Montoya Work Phone: Start: 01-06-[address] Mykel Montoya Work Phone: Start: 10-04-[address] Mykel Montoya Work Phone: Start: 09-07-[address] obstetr ic ultrasonography Dr. Mykel Montoya Work Phone: Start: 05-03-2022 Radiography of ankle Plan of Treatment Date Care Activity Detail Author Start: 02-03-2033 Urine microalbumin profile DTaP,Tdap,Td Vaccine (3 - Td or Tdap) [facility] Start: 01-06-2025 Influenza vaccination Influenza Vaccine (#1) [facility] Start: 03-30-2023 Patient discharge [facility] Start: 03-29-2023 Application of abdominal corset [facility] Start: 03-29-2023 Consultation [facility] Start: 03-28-2023 End: 03-29-2023 [facility] Start: 03-28-2023 Notification of physician [facility] Start: 03-28-2023 Vital signs measurements [facility] Start: 03-28-2023 Application of abdominal corset [facility] Start: 03-28-2023 Administration of medication [facility] Start: 03-28-2023 Ambulation therapy management [facility] Start: 03-28-2023 Application of device [facility] Start: 03-28-2023 End: 03-28-2023 Application of intermittent pneumatic compression device [facility] Start: 03-28-2023 Assessment of risk of venous thromboembolism [facility] Start: 03-28-2023 Catheterization of vein [facility] Start: 03-28-2023 Deep breathing and coughing exercises [facility] Start: 03-28-2023 Exercises [facility] Start: 03-28-2023 Measuring intake and output [facility] Start: 03-28-2023 Notification of physician [facility] Start: 03-28-2023 Procedure discontinued [facility] Start: 03-28-2023 Provision of activity privileges [facility] Start: 03-28-2023 Skin care [facility] Start: 03-28-2023 Vital signs measurements [facility] Start: 03-28-2023 Wound care [facility] Start: 03-28-2023 Admission procedure [facility] Start: 03-28-2023 Application of intermittent pneumatic compression device [facility] Start: 03-28-2023 External monitor surveillance [facility] Start: 03-28-2023 Preoperative care [facility] Start: 03-28-2023 Consultation [facility] Start: 03-26-2023 Nonstress test [facility] Start: 03-26-2023 Obstetric monitoring [facility] Start: 03-26-2023 Vital signs measurements [facility] Start: 03-26-2023 [facility] Start: 05-08-2022 DEPRESSION ASSESSMENT DEPRESSION ASSESSMENT [facility] Start: 01-06-2022 Influenza vaccination [facility] Start: 01-04-2022 COVID-19 VACCINE (4 - Booster for Moderna series) COVID-19 VACCINE (4 - Booster for Moderna series) [facility] Start: 02-10-2021 COVID-19 VACCINE (3 - Booster for Moderna series) COVID-19 VACCINE (3 - Booster for Moderna series) [facility] Start: 2019 HPV TESTING HPV TESTING [facility] Start: 2016 HPV Vaccine (1 - 3-dose SCDM series) HPV Vaccine (1 - 3-dose SCDM series) [facility] Start: 2010 PAP TESTING PAP TESTING [facility] Start: 2010 Screening for malignant neoplasm of cervix Cervical Cancer Screening [facility] Start: 2008 Urine microalbumin profile DTAP,TDAP,TD (1 - Tdap) [facility] Start: 2007 Anxiety Screening Anxiety Screening [facility] Start: 2007 Depression Screening Depression Screening [facility] Start: 2007 HEPATITIS C SCREENING HEPATITIS C SCREENING [facility] Start: 2007 Hepatitis C screening Hepatitis C Screening [facility] Start: 2007 HIV SCREENING HIV SCREENING [facility] Start: 2007 HIV screening HIV Screening [facility] Start: 2001 Adult depression screening assessment DEPRESSION SCREENING [facility] Start: 1989 HEPATITIS B (1 of 3 - 3-dose series) HEPATITIS B (1 of 3 - 3-dose series) [facility] Patient Education [facility] Work Phone: Patient referral [facility] Work Phone: [facility] Immunizations Immunization Date Immunization Notes Care Provider Fa cility 06-12-2024 Hepatitis B vaccine (recombinant), CpG adjuvanted Dr. Mykel Montoya MD Work Phone: [facility] 05-02-2024 Hepatitis B vaccine (recombinant), CpG adjuvanted Dr. Mykel Montoya MD Work Phone: [facility] 04-16-2024 influenza, seasonal, injectable, preservative free Dr. Mykel Montoya MD Work Phone: [facility] 04-16-2024 influenza virus vaccine, unspecified formulation Jackelyn Madden APRN.CNP Work Phone: [facility] 02-03-2023 influenza, injectabl e, quadrivalent, preservative free Dr. Mykel Montoya Work Phone: [facility] 02-03-2023 tetanus toxoid, redu karthik diphtheria toxoid, and acellular pertussis vaccine, adsorbed Dr. Mykel Montoya Work Phone: [facility] 08-31-2018 tetanus toxoid, redu karthik diphtheria toxoid, and acellular pertussis vaccine, adsorbed Dr. Mykel Montoya MD Work Phone: [facility] Payers Date Payer Category Payer Private Health [facility] [id number] 2024 Unknown [id number] 2024 Self-pay [id number] 2021 [employer] Blue [employer] BLUE ACCE PPO [id number] 2021 Unknown [employer] BLUE ACCE SS PPO [id number] 2021-Present [phone] [address] [place] [address] PPO [id number] 2021 Unknown [id number] 2018 Unknown MMO MMO [employer]US [id number] 2018-Present [phone] [address] [place] [address] O [id number] 2016 Unknown [id number] 1989 Unknown [id number] Private Health Insurance [id number] Unknown [id number] Unknown [id number] Unknown [id number] Unknown [id number] Unknown [id number] Unknown [id number] Unknown [id number] Social History Date Type Detail Facility Start: 06-03-2014 End: 03-14-2024 Tobacco smoking status NHIS Never smoked tobacco [facility] Start: 06-03-2014 Tobacco use and exposure Smokeless tobacco non-user [facility] Start: 12-19-2019 Alcohol intake Not Asked [facility] Start: 1989 Sex Assigned At Not on file [facility] Start: 04-16-2018 End: 03-28-2023 Tobacco smoking status FLIS Unknown if ever smoked [facility] Start: 1989 Sex Assigned At Female W [facility] Start: 12-19-2019 End: 04-15-2020 History of Social function [facility] Start: 12-19-2019 End: 04-15-2020 Tobacco use panel [facility] Start: 06-03-2014 National Score (1-10 0), lower number is lower risk Not on file [facility] Start: 04-02-2023 Gender identity Identifies as female gender (finding) [facility] Start: 04-02-2023 Sexual orientation Heterosexual (christiano ley) [facility] Medical Equipment Procedure Code Equipment Code Equipment Origin al Text Equipment Identifier Dates Cystoscopy, with retrograde pyelogram, ureteroscopy, laser procedure, and stent inser Polymeric ureteral stent [id number] FDA Start: 03-15-2024 Goals Date Patient Goal Desired Activity /State Functional Status Date Assessment Result Facility 06-03-2014 Are you deaf, or do you have serious difficulty hearing No 06/03/2014 12:54 PM Mira Franco LPN No [facility] 06-03-2014 Are you blind, or do you have serious difficulty seeing, even when wearing glasses No 06/03/2014 12:54 PM Mira Franco LPN No [facility] 06-03-2014 Do you have serious difficulty walking or climbing stairs No 06/03/2014 12:54 PM Mira Franco LPN No [facility] 06-03-2014 Do you have difficul ty dressing or bathing No 06/03/2014 12:54 PM Mira Franco LPN No [facility] 06-03-2014 Because of a physica l, mental, or emotional condition, do you have difficulty doing errands alone such as visiting a physician's office or shopping No 06/03/2014 12:54 PM Mira Franco LPN No [facility] Mental Status Date Assessment Result Facility 03-28-2023 Cognitive function Level Of Cons ciousness Awake;Alert;Appropriate [facility] Work Phone: 06-03-2014 Because of a physica l, mental, or emotional condition, do you have serious difficulty concentrating, remembering, or making decisions No 06/03/2014 12:54 PM Mira Franco LPN No [facility] Clinical Notes 09-10-2021 to 03-11-2025 Patient InstructionsJohn NILES Hayden.PHARMACOLOGIST - 01/04/2025 1:57 PM EDT Note Date & Type Note Facility 03-11-2025 Note HNO ID: [id number] Author: JULI MORALES APRN.ALANA Service: ? Author Type: Nurse Practitioner Type: Progress Notes Filed: 03/11/2025 10:16 Note Text: Telemedicine Visit - Distance Health Virtual Visit Note Patient seen on bettermarks Video Visit platform. Location of patient: [place] Mykel Montoya MD I have communicated my name and active licensure. The patient's identity and physical location were verified at the time of this visit. Either the patient or their legal used equipment sales representative has been informed of the risks and benefits of -- and alternatives to -- treatment through a remote evaluation and consents to proceed with the evaluation remotely. Subjective The patient is a 34-year-old female with asthma presenting for evaluation of cough and pink eye. The patient is a 34-year-old female with a history of asthma, presenting for evaluation of cough and pink eye. - Onset of symptoms approximately one week ago. - Cough, sore throat, nasal congestion, and pink eye with eyes "glued shut" in the mornings. - Symptoms worsening since initial evaluation at urgent care on Monday. - Denies fever, chills, or chest discomfort; reports a "tickle" in the chest. - Eyes are itchy; neck and ears are painful to touch. - Denies wearing contact lenses. - COVID and flu tests were negative. - Current medications include nasal saline spray, Flonase, and albuterol inhaler for asthma management. Asthma: - Managed with albuterol inhaler. Some of the medications discontinued during this visit may have been discontinued upon the verbal directive of the patient that they are no longer taking. Constitutional: (-) fever, (-) chills Eyes: (+) ocular pruritus, (+) eye discharge Ears/Nose/Mouth/Throat: (+) ear pain, (+) sore throat, (+) nasal congestion Neck: (+) neck pain Respiratory: (+) cough Objective Last menstrual period 10/23/2018. General: NAD, well developed, well nourished. Sitting upright and communicating normally, nontoxic appearing, normal speech. HEENT: pupils are equal in size, conjunctival injection, no eye discharge. EOM intact bilaterally, symmetrical facial movement. Head is atraumatic, normocephalic. Neck unremarkable. Mucus membranes moist, no lip cracking. No nasal drainage. No sinus tenderness Chest: no visible deformities. Pulm: no wheezing, no trouble speaking, normal respiratory rate and normal work of breathing. Neurologic: alert and oriented x 3, no facial asymmetry. Psychiatric: normal behavior, good eye contact during encounter, calm and cooperative, demonstrates normal judgment and normal affect. Assessment AND Plan 1. Viral upper respiratory tract infection with cough (J06.9) 2. Viral conjunctivitis (B30.9) - Symptoms began one week ago; worsening cough and conjunctival discharge since initial urgent care visit on Monday, where viral etiology was diagnosed. - Symptoms remain consistent with viral etiology. - COVID and influenza tests negative. - Continue saline nasal spray and Flonase as previously recommended. - Start Bromfed cough syrup to address cough and congestion. - Start ipratropium nasal spray, 1 spray TID for sinus drainage. - Advised use of saline eye drops for hydration, tepid compresses for comfort, and avoidance of eye rubbing or touching. - Discussed potential use of antihistamine for ocular pruritus. - Educated on viral etiology of conjunctivitis and URI; explained that symptom improvement may take a minimum of 10-14 days. Recording using [employer] software for draft documentation of the visit was discussed with the patient/authorized used equipment sales representative; all questions welcomed and answered. Patient/authorized used equipment sales representative agreed to proceed IF YOUR SYMPTOMS PERSIST OR WORSENING IN THE NEXT 5-7 DAYS THEN PLEASE FOLLOW UP WITH YOUR PCP - Red flags discussed for need for in person care - All questions answered History and Record Review External record(s) reviewed: prior outpatient record. Differential Diagnoses - Viral upper respiratory tract infection with cough is more likely for the following reason(s): suggested by HANDP - Viral conjunctivitis is more likely for the following reason(s): exam suggestive, suggested by HANDP - Bacterial sinusitis is less likely for the following reason(s): HANDP not suggestive - Bacterial conjunctivitis is less likely for the following reason(s): exam not suggestive, HANDP not suggestive Disposition The patient was discharged. The following prescription medication(s) were considered but ultimately not given after discussion with patient/family: antibiotic Reasons for not prescribing include the following: exam not suggestive, HANDP/workup not suggestive of bacterial process. CODING: [facility] 01-04-2025 Instructions Jackelyn Madden APRN.CNP - 01/04/2025 2:00 PM EDT We discussed your diagnosis of hand, foot, and mouth disease: - This condition is viral and does not require medication. It will need to run its course, which typically lasts up to one week. - You should stay out of work as long as you have active lesions. A work excuse has been provided for Monday, and it is available in your [employer]. If your symptoms persist beyond 01/07/2025, please follow up for further evaluation. - To manage symptoms, you may take Ibuprofen or Tylenol as needed for pain or fever. - Stay hydrated by drinking plenty of fluids. Please monitor your symptoms, and if they worsen or do not improve, follow up for further guidance. documented in this encounter [facility] 01-04-2025 Note HNO ID: [id number] Author: JACKELYN MADDEN APRN.CNP Service: ? Author Type: Nurse Practitioner Type: Progress Notes Filed: 01/04/2025 14:01 Note Text: Telemedicine Visit - Distance Health Virtual Visit Note Patient seen on bettermarks Video Visit platform. Location of patient: [place] I have communicated my name and active licensure. The patient's identity and physical location were verified at the time of this visit. Either the patient or their legal used equipment sales representative has been informed of the risks and benefits of -- and alternatives to -- treatment through a remote evaluation and consents to proceed with the evaluation remotely. History of Present Illness Deysi Price is a 34-year-old female presenting with concerns of potential hand, foot, and mouth disease. Deysi reports the onset of symptoms began yesterday, including the appearance of lesions on her hands and feet, as well as on the corners of her lips and nose. Two days ago, she experienced chills while on vacation in [place], despite being outside in 80-degree weather. She denies fever or diaphoresis. Deysi suspects she contracted the illness from her daughter, who recently exhibited similar symptoms. Her daughter was evaluated at an urgent care and was told it could be a double ear infection and a sore throat, but her business support coordinator mentioned that viral infections can exhibit similar symptoms. Review of Systems Constitutional: (+) chills Ears/Nose/Mouth/Throat: (+) sore throat Skin: (+) rash on hands, feet, lip, nose Psychiatric: (+) anxiety No past medical history on file. No past surgical history on file. No family history on file. SOCIAL HISTORY[1] Current Outpatient Medications Medication Sig predniSONE (DELTASONE) [...] Exam (Examination performed via Video enabled technology) Patient performed self-exam with provider guided assistance. General: No acute distress. HEENT: lesions on corner of lip and nose. Skin: Vesicular lesions on palm of hands and soles of feet. ASSESSMENT/PLAN: 1. Hand, foot and mouth disease (B08.4) Acute hand, foot, and mouth disease with classic lesions on hands, feet, and perioral area, following recent exposure from daughter with similar symptoms. - Advised supportive care with ibuprofen, Tylenol, and adequate fluid intake. - Educated patient that the condition is self-limited, typically resolving within a week, and that no specific antiviral treatment is available. - Advised to remain off work until all active lesions have resolved; provided work excuse for 01/07/2025. - Red flags discussed for need for in person care - All questions answered Jackelyn BYERS-LINING [employer] CLOSER Attestation Recording using AdTotum software for draft documentation of the visit was discussed with the patient/authorized used equipment sales representative; all questions welcomed and answered. Patient/authorized used equipment sales representative agreed to proceed MDM [1] Social History Tobacco Use Smoking status: Never Smokeless tobacco: Never [facility] 01-04-2025 History of Presen t illness Narrative Telemedicine Visit - Distance Health Virtual Visit Note Patient seen on bettermarks Video Visit platform. Location of [place]: [place] I have communicated my name and active licensure. The patient's identity and physical location were verified at the time of this visit. Either the patient or their legal used equipment sales representative has been informed of the risks and benefits of -- and alternatives to -- treatment through a remote evaluation and consents to proceed with the evaluation remotely. History of Present Illness Deysi Price is a 34-year-old female presenting with concerns of potential hand, foot, and mouth disease. Deysi reports the onset of symptoms began yesterday, including the appearance of lesions on her hands and feet, as well as on the corners of her lips and nose. Two days ago, she experienced chills while on vacation in [place], despite being outside in 80-degree weather. She denies fever or diaphoresis. Deysi suspects she contracted the illness from her daughter, who recently exhibited similar symptoms. Her daughter was evaluated at an urgent care and was told it could be a double ear infection and a sore throat, but her business support coordinator mentioned that viral infections can exhibit similar symptoms. Review of Systems Constitutional: (+) chills Ears/Nose/Mouth/Throat: (+) sore throat Skin: (+) rash on hands, feet, lip, nose Psychiatric: (+) anxiety No past medical history on file. No past surgical history on file. No family history on file. SOCIAL HISTORY[1] Current Outpatient Medications Medication Sig predniSONE (DELTASONE) [...] mg by mouth once daily. Desogestrel-Ethinyl Estradiol (CHADWICKEN, 28,) 0.15-30 mg-mcg per tablet Take 1 tablet by mouth once daily. No current facility-administered medications for this visit. ALLERGIES Allergen Reactions Augmentin [Amoxicil* Unknown Caffeine Other: See Comments Hives Penicillins GI Upset abd pain, n/v/d Video Exam (Examination performed via Video enabled technology) Patient performed self-exam with provider guided assistance. General: No acute distress. HEENT: lesions on corner of lip and nose. Skin: Vesicular lesions on palm of hands and soles of feet. ASSESSMENT/PLAN: 1. Hand, foot and mouth disease (B08.4) Acute hand, foot, and mouth disease with classic lesions on hands, feet, and perioral area, following recent exposure from daughter with similar symptoms. - Advised supportive care with ibuprofen, Tylenol, and adequate fluid intake. - Educated patient that the condition is self-limited, typically resolving within a week, and that no specific antiviral treatment is available. - Advised to remain off work until all active lesions have resolved; provided work excuse for 01/07/2025. - Red flags discussed for need for in person care - All questions answered Jackelyn Madden MSN-LINING STR[employer] CLOSER Attestation Recording using ambient OnKure software for draft documentation of the visit was discussed with the patient/authorized used equipment sales representative; all questions welcomed and answered. Patient/authorized used equipment sales representative agreed to proceed MDM [1] Social History Tobacco Use Smoking status: Never Smokeless tobacco: Never documented in this encounter [facility] 09-27-2024 Radiology Diagnostic study note [facility] Imaging Services [address] [place] [address] Foot min 3 Views MR#: [id number] Acct: [id number] Name: DEYSI PRICE Rep #: [id number] : 1990 F 34 From: Cici Murillo MD PCP: Dr. Mykel Montoya MD Status: REG C JULISSA Study:Foot min 3 Views Date of Exam: Exam# [id number] Ordering Dr: May Chi PA EXAM: XR Left Foot Complete, 3 or More Views CLINICAL INDICATION: FOOT INJURY TECHNIQUE: Frontal, lateral and oblique views of the left foot. COMPARISON: No relevant prior studies available. FINDINGS: BONES/JOINTS: Mild degenerative changes of the intertarsal joints. SOFT TISSUES: Soft tissue swelling without acute fracture. No radiopaque foreign body. RAD/Foot min 3 Views IMPRESSION: 1. Soft tissue swelling without acute fracture. 2. If symptoms persist, further evaluation with CT is recommended. Reading [facility] CC: LARRY Ramos; Dr. Mykel Montoya MD ~ Cotton Wringer: Signed [facility] 08-14-2024 Evaluation note Diagnosis Onset Date Resolution Contraception management acute August 14, 2024 2:28pm OCD (obsessive compulsive disorder) acute August 14, 2024 2:28pm Encounter for routine gynecological examination noneactive August 14, 2024 2:28pm Strain of left foot acute September 062024 12:12pm [facility] Work Phone: 1(254) 482-788811-08-2024 [facility] Medical Records Department [address] [place] [address] History Physical Exam 03/15/24 1220 MR#: [id number] Acct: [id number] Name: DEYSI PRICE Rep #: [id number] : 1990 33 From: Francoise Velez MD PCP: Dr. Mykel Montoya MD Status:ADM CARLOS [facility] - General General Date of Admission: 03/14/24 HPI Narrative DEYSI PRICE is a 33 F who presents [facility] Medical History delivery delivered Depression Anxiety Pre-eclampsia Vaginal discharge Amenorrhea Asthma Home Medications ???Medication ???Instructions ???Recorded ???Last Taken ???Type fluoxetine 40 mg capsule 40 mg PO DAILY 04/11/23 Unknown History desogestrel 0.15 mg-ethinyl 1 tab PO DAILY #84 tabs 05/17/23 Unknown Rx estradiol 0.03 mg tablet (Enskyce) rosuvastatin 5 mg tablet 5 mg PO DAILY 05/17/23 Unknown History loratadine 10 mg tablet (Allergy 10 mg PO DAILY 03/14/24 Unknown History Relief (loratadine)) Allergy/AdvReac Type Severity Reaction Status Date / Time caffeine Allergy Hives Verified 03/14/24 12:28 amoxicillin trihydrate (From AdvReac Unknown Unknown Verified 03/14/24 12:28 Augmentin) potassium clavulanate (From AdvReac Unknown Verified 03/14/24 12:28 Augmentin) Family History Mother Breast cancer, Onset Age: 60 Graves disease Hypertension Lung cancer Grandmother Breast cancer, Onset Age: 60 Congestive heart failure Grandfather Congestive heart failure Kidney disease Diabetes Surgical History (Updated 03/15/24 @ 11:[address] Rubén Rivas MD) H/O section S/P tympanostomy tube placement History of tonsillectomy and adenoidectomy Social History adopted: No household members: spouse and children current occupational status: employed current occupation: [employer] pets and animals: Yes ( does litter box) pets and animals: cat(s) history of recent travel: No sexually active: Yes Smoking Status: Never smoker second hand exposure: No alcohol intake: current details: social- not while substance use type: does not use caffeine: Yes Type: carbonated beverages Number of servings: 1 and tea Number of servings: 1 what type of physical activity do you participate in: walking frequency: 1-2 times per week seatbelt use: always do you feel safe at home: Yes additional social history: -Eros Vital Signs Vital Signs Vital Signs: 03/14/24 12:28 03/14/24 14:28 03/14/24 16:00 Temperature 97.9 F Temperature Source Temporal Pulse Rate 102 H 77 84 Pulse Strength Respiratory Rate 18 18 16 Respiratory Effort Respiratory Depth Respiratory Pattern Blood Pressure 141/95 H 136/84 H Blood Pressure Mean 110 101 Blood Pressure Source Blood Pressure Position Blood Pressure Location Pulse Ox 99 99 97 Oxygen Delivery Method Room Air Room Air 03/14/24 16:17 03/14/24 17:11 03/14/24 21:00 Temperature 98.1 F 98.1 F 98.4 F Temperature Source Oral Oral Pulse Rate 87 87 90 Pulse Strength Respiratory Rate 18 18 16 Respiratory Effort Respiratory Depth Respiratory Pattern Blood Pressure 133/81 H 122/67 H 129/74 H Blood Pressure Mean 98 85 92 Blood Pressure Source Monitor Monitor Blood Pressure Position Semi-Fowlers Semi-Fowlers Blood Pressure Location Right Arm Right Arm Pulse Ox 98 98 99 Oxygen Delivery Method Room Air Room Air 03/14/24 21:19 03/15/24 03:20 03/15/24 08:31 Temperature 97.9 F Temperature Source Temporal Pulse Rate 71 Pulse Strength Respiratory Rate 16 Respiratory Effort Normal Non-Labored Respiratory Depth Normal Respiratory Pattern Normal Blood Pressure 110/65 Blood Pressure Mean 80 Blood Pressure Source Monitor Blood Pressure Position Supine Blood Pressure Location Right Arm Pulse Ox 99 99 Oxygen Delivery Method Room Air Room Air Room Air 03/15/24 08:43 03/15/24 08:44 03/15/24 10:00 Temperature 98.2 F Temperature Source Oral Pulse Rate 89 Pulse Strength Normal (2+) Respiratory Rate 18 Respiratory Effort Respiratory Depth Respiratory Pattern Blood Pressure 136/67 H Blood Pressure Mean 90 Blood Pressure Source Monitor Blood Pressure Position Semi-Fowlers Blood Pressure Location Right Arm Pulse Ox 99 Oxygen Delivery Method Room Air Room Air 03/15/24 11:24 03/15/24 11:59 Temperature 98.5 F 98.5 F Temperature Source Oral Pulse Rate 81 81 Pulse Strength Respiratory Rate 18 18 Respiratory Effort Respiratory Depth Respiratory Pat (more content not included)...[facility] 03-30-2023 Discharge summary Author Lily Duran [facility] March 30, 2023 6:01am Note Date/Time March 28, 2023 10:12am [facility] Medical Records Department [address] [place] [address] Instructions for Home/Discharge Instructions 03/28/23 1012 MR#: [id number] Acct: [id number] Name: DEYSI PRICE Rep #:[id number] : 1990 32 From: Lily evangelista MD PCP: Dr. Mykel Montoya MD Status:ADM I N Discharge Instructions Diet Discharge Diet: No restrictions Activity Discharge Activity: May Not Drive (for 2 weeks or while taking narcotic pain medications.), May Shower and May Take a Tub Bath (in 7 days) May shower in (days): 0 May resume sexual activity in: 4-6 weeks Weight Bearing Status: Full weight bearing Lifting Restrictions: 20 pounds Dressing / Incision Call your doctor if your incision/area has: Continuous Slow Oozing, Sudden Increased Bleeding, Increased Pain/ Swelling, Increased Redness and Foul Smelling Discharge Call your doctor if you observe: Fever of 101 or Higher and Using more than 1 pad per hour (for 2 hours) Suture Line Care: Avoid Pulling/Pushing and Avoid Pinching/Bending Cleanse incision/area with: Soap & Water and Keep Dressing Clean & Dry Follow Up Care Please Follow Up With: Lily Duran MD When: Call [phone] to make an appointment for an incision check in 1-2 weeks. Test Results: Test results from this visit will be discussed in further detail at your follow- up appointment, if applicable. Discharge Plan Admission Admit Date/Time: 03/28/23 08:40 Attending Provider: Lily Duran Primary Care Provider: Mykel Montoya Discharge Orders/Prescriptions Prescriptions: New oxycodone-acetaminophen [Percocet] 5-325 mg tablet 1 tab PO Q6H PRN (Reason: pain) 7 Days Qty: 20 0RF naproxen [naproxen] 500 mg tablet 500 mg PO BID PRN PRN (Reason: Pain) Qty: 30 1RF No Action cholecalciferol (vitamin D3) 50 mcg (2,000 unit) capsule 50 mcg PO DAILY DHA 200 mg capsule PO Patient Comments: 2 gummies famotidine [Pepcid] 20 mg tablet 20 mg PO DAILY Qty: 30 6RF sertraline [Zoloft] 50 mg tablet 75 mg PO DAILY 90 Days Qty: 135 7RF Referrals / Follow Up: Mykel Montoya MD [Primary Care Provider] - 03/30/23 0601<Electronically signed by Lily Duran MD>Lily Duran MD CC: Dr. Mykel Montoya MD ~ Signed [facility] Work Phone: 1(641) 484-131111-23-2023 Progress note Author Lily Duran [facility] March 30, 2023 5:10am Note Date/Time March 30, 2023 5:10am [facility] Medical Records Department [address] [place] [address] Progress Note - OBGYN 03/30/23 0507 MR#: [id number] Acct: [id number] Name: DEYSI PRICE Rep #:[id number] : 1990 32 From: Lily evangelista MD PCP: Dr. Mykel Montoya MD Status:ADM I N Location: [place] [address] Subjective Subjective Patient doing well without complaints. Tolerating PO. Ambulating and voiding without difficulty. feeding well. Denies chest pain, shortness of breath,calf pain/swelling, fevers, chills, lightheadedness. Objective Data Objective Data Vital Signs: Vital Signs Temp Pulse Resp BP Pulse Ox O2 Del Method 97.2 F L 85 16 153/83 H 99 Room Air 03/30/23 01:04 03/30/23 01:04 03/30/23 01:04 03/30/23 01:04 03/30/23 01:04 03/30/23 01:04 Oxygen Delivery Method Room Air Weight: 194 lb 8 oz Body Mass Index (BMI) 33.3 Intake & Output: Intake and Output for Last 24 Hours 03/28/23 03/29/23 03/30/23 23:59 23:59 23:59 Intake Total 3278.33 / 3278.33 1000 / 1000 Output Total 900 / 900 1450 / 1450 Balance 2378.33 / 2378.33 -450 / -450 Lab / Micro Data 03/29/23 06:30 03/28/23 09:50 Labs: Laboratory Results - last 24 hr 03/29/23 06:30: WBC 13.2 H, RBC 3.37 L, Hgb 9.6 L, Hct 29.8 L, MCV 88.4, MCH 28.5, MCHC 32.2, RDW Std Deviation 45.4 H, RDW Coeff of Chris 14.1, Plt Count 211,MPV 10.5 03/30/23 01:01: POC Glucose 70 L ROS Constitutional Constitutional: Reports systems reviewed and no addt'l complaints, except as documented Cardiovascular Cardiovascular: Reports systems reviewed and no addt'l complaints, except as documented Respiratory/Chest Respiratory/Chest: Reports systems reviewed and no addt'l complaints, except as documented Gastrointestinal Gastrointestinal: Reports systems reviewed and no addt'l complaints, except as documented Physical Exam Const alert, oriented x3 and no apparent distress HEENT Head and Scalp: atraumatic Resp normal respiratory effort GI soft to palpation and non-tender Inspection: incision intact, healing well and drainage (none) Bimanual Exam - Vag & Uterus: uterus non-tender Uterus Palpation: uterus fundus firm (below Umbilicus) Assessment & Plan (1) Hyperlipidemia: COMMENT: enskyce potentially contributing. wants to retest prior to restarting any control. (2) OCD (obsessive compulsive disorder): QUALIFIERS: Obsessive-compulsive disorder type: unspecified Qualified Code(s): F42.9 - Obsessive-compulsive disorder, unspecified COMMENT: Change from prozac to zoloft. Enc counseling (3) delivery delivered: COMMENT: LTCS breech oligo SM girl Citlaly 36 (4) Mild pre-eclampsia: COMMENT: monitor bps and prescribe medications PRN PLAN: Plan s/p LTCS PPD # 2 1. routine post care 2. breast feeding- support given 3. rh positive 4. rubella immune preeclampsia- monitor bps today 03/30/23 0510 <Electronically signed by Lily Duran MD> Cosigner Signature (if applicable): CC: ~ Signed [facility] Work Phone: 1(871) 517-725311-22-2023 Progress note Author Tracy Bowman [facility] March 29, 2023 8:00am Note Date/Time March 29, 2023 8:00am [facility] Medical Records Department [address] [place] [id number] Progress Note - OBGYN 03/29/23 0758 MR#: [id number] Acct: [id number] Name: DEYSI PRICE Rep #:[id number] : 1990 32 From: Tracy Bowman NP [employer] PCP: Dr. Mykel Montoya MD Status:ADM I N Location: [place] [address] Subjective Subjective Patient doing well without complaints. Tolerating PO. Ambulating and voiding without difficulty. Feeding well. Denies chest pain, shortness of breath, calf pain/swelling, fevers, chills, lightheadedness. Objective Data Objective Data Vital Signs: Vital Signs Temp Pulse Resp BP Pulse Ox O2 Del Method 98.5 F 86 16 127/59 H 97 Room Air 03/28/23 21:02 03/29/23 04:44 03/29/23 04:44 03/29/23 04:44 03/29/23 04:44 03/29/23 04:44 Oxygen Delivery Method Room Air Weight: 194 lb 8 oz Body Mass Index (BMI) 33.3 Intake & Output: Intake and Output for Last 24 Hours 03/27/23 03/28/23 03/29/23 23:59 23:59 23:59 Intake Total 3278.33 / 3278.33 1000 / 1000 Output Total 900 / 900 750 / 750 Balance 2378.33 / 2378.33 250 / 250 Lab / Micro Data 03/29/23 06:30 03/28/23 09:50 Labs: Laboratory Results - last 24 hr 03/28/23 09:50: WBC 10.4, RBC 4.23, Hgb 11.9 L, Hct 36.4 L, MCV 86.1, MCH 28.1, MCHC 32.7, RDW Std Deviation 43.0, RDW Coeff of Chris 13.9, Plt Count 287, MPV 10.7, Immature Gran % (Auto) 0.500, Neut % (Auto) 67.8, Lymph % (Auto) 22.8, Kimble % (Auto) 6.2, Eos % (Auto) 2.3, Baso % (Auto) 0.4, Absolute Neuts (auto) 7.1, Absolute Lymphs (auto) 2.38, Nucleated RBC % 0, Sodium 138, Potassium 4.0, Chloride 108 H, Carbon Dioxide 22.0, Anion Gap 8, BUN 8, Creatinine 0.52 L, Estim Creat Clear Calc 132.88, Est GFR (MDRD) Af Amer 174, Est GFR (MDRD) Non-Af144, BUN/Creatinine Ratio 15.4, Glucose 71 L, Calcium 8.6, Total Bilirubin 0.20,AST 15, ALT 15, Alkaline Phosphatase 206 H, Total Protein 7.4, Albumin 2.4 L, Globulin 5.0 H, Albumin/Globulin Ratio 0.5 L, Syphilis Total Ab Non-reactive, Blood Type B POSITIVE, Antibody Screen NEGATIVE 03/29/23 06:30: WBC 13.2 H, RBC 3.37 L, Hgb 9.6 L, Hct 29.8 L, MCV 88.4, MCH 28.5, MCHC 32.2, RDW Std Deviation 45.4 H, RDW Coeff of Chris 14.1, Plt Count 211,MPV 10.5 Physical Exam Const alert and oriented x3 HEENT normocephalic Eyes PERRL Neck full ROM Resp normal respiratory effort GI soft to palpation GI Narrative: FF below U. Dressing dry and intact Palpation: tender other (appropriately) Assessment & Plan (1) delivery delivered: COMMENT: LTCS breech oligo SM girl Citlaly 35 PLAN: Plan s/p LTCS PPD # 1 1. routine post care 2. bottle feeding- support given 3. rh positive 4. 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 Mykel Montoya MD Status:ADM I N Location: [id number] HPI - General General Date of Admission: 03/28/23 HPI Narrative DEYSI PRICE, is a 32 F who presents for LTCS for breech. she had an ultrasoundtoday that showed an aurea of 3 cm Maternal Data Information ED Calculator Estimated Delivery Date Method Current WG Current Estimate 04/24/23 LMP (Certain) 36w 1d PFSH PFSH Medical History (Updated 03/28/23 @ 10:[address] Lily Duran MD) Amenorrhea Anxiety Asthma Depression Pre-eclampsia Vaginal discharge Home Medications cholecalciferol (vitamin D3) 50 mcg (2,000 unit) capsule 50 mcg PO DAILY 09/01/22 [History Last Taken 03/27/23] docosahexaenoic acid 200 mg capsule ( DHA) mg PO 09/01/22 [History Last Taken 03/27/23] famotidine 20 mg tablet (Pepcid) 20 mg PO DAILY reflux #30 tabs 01/07/23 [Rx Last Taken 03/27/23] sertraline 50 mg tablet (Zoloft) 75 mg (1.5 x 50 mg) PO DAILY anxiety 90 days #135 tabs 03/01/23 [Rx Last Taken 03/27/23] Allergy/AdvReac Type Severity Reaction Status Date / Time caffeine Allergy Hives Verified 03/28/23 09:27 amoxicillin trihydrate AdvReac Unknown Unknown Verified 03/28/23 09:27 [From Augmentin] potassium clavulanate AdvReac Unknown Verified 03/28/23 09:27 [From Augmentin] Family History Mother Breast cancer, Onset Age: 60 Graves disease Hypertension Lung cancer Grandmother Breast cancer, Onset Age: 60 Congestive heart failure Grandfather Congestive heart failure Kidney disease Diabetes Surgical History History of tonsillectomy and adenoidectomy S/P tympanostomy tube placement Social History adopted: No household members: spouse current occupational status: employed current occupation: [employer] pets and animals: Yes ( does litter box) pets and animals: cat(s) history of recent travel: No sexually active: Yes Smoking Status: Never smoker second hand exposure: No alcohol intake: current details: social- not while substance use type: does not use caffeine: Yes Type: carbonated beverages Number of servings: 1 and tea Number of servings: 1 what type of physical activity do you participate in: walking frequency: 1-2 times per week seatbelt use: always do you feel safe at home: Yes additional social history: -Eros History 1 Elective abortions Hx Para 0 Spontaneous abortions Hx # Term Pregnancies Ectopic pregnancies Hx # Pregnancies Multiple births # of living children Visit Details Expected Delivery Route/Plan Labor Preferences- CB/BF classes: [] labor support person: Eros -does not want to cut cord or see blood. She does not want anyone to be there but Eros!. labor intervention preferences: [] pain management options preferred: epidural cut cord/dad catch: dad says NO : no, needs to go back on cholesterol meds and can not breast feed. PP control planned: [] discussed possible routes of delivery and associated risks: [] special requests: [] Plans Covid status: [] Flu vaccine: obtained Tdap vaccine: obtained Rhogam: na LARC form signed: [] movement and labor precautions reviewed. Problem list reviewed and updated with the most current plan of care details and appropriate orders placed. Relevant counseling for the gestational age provided. Continue routine care and follow up unless otherwise noted in visit notes/problem list details OB Flowsheet Initial Weight: Not Recorded Date -?-?-?-?-?-?-?-?-?-?-?-?- EGA Weight BP Urine Prot -?-?-?-?-?-?-?-?-?-?-?-?- Glucose FHR FuHt Pres Dilation -?-?-?-?-?-?-?-?-?-?-?-?- Effaced St Visit Note 09/21/22 -?-?-?-?-?-?-?-?-?-?-?-?- 9w 2d 184 lb 2 oz 118/71 118/71 Negative -?-?-?-?-?-?-?-?-?-?-?-?- Negative 160 -?--?-?-?-?-?-?-?-?-?-?-?- LC spotting x1 y esterday after BM. +FHT today. bleeding precautions provided. LC- ultrasound with CRL c/w LMP. ED 04/21/2023. spotting x1 yesterday after BM. +FHT today. bleeding precautions provided. 10/04/22 -?-?-?-?-?-?-?-?-?-?-?-?- 11w 1d 181 lb 6 oz -?-?-?-?-?-?-?-?-?-?-?-?- 160 -?-?-?-?-?-?-?-?-?-?-?-?- kw- no cramping/ vb. desires NIPT-ordered today kw- no cramping/vb. 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 Br US to confirm FHT. 11/15/22 -?-?-?-?-?-?-?-?-?-?-?-?- 17w 1d 180 lb 8 oz 126/74 -?-?-?-?-?-?-?-?-?-?-?-?- 157 -?-?-?-?-?-?-?-?-?-?-?-?- MH-No VB but luciano e mucous discharge. worked in due to "very anxious" as she has been weaning down on prozac and wants to try zoloft. New Rx sent. Enc counseling. 12/16/22 -?-?-?-?-?-?-?-?-?-?-?-?- 21w 4d 183 lb 8 oz 112/81 Nega tive -?-?-?-?-?-?-?-?-?-?-?-?- Negative 140 -?-?-?-?-?-?-?-?-?-?-?-?- JV- normal anato my. no complaints. labor preferences discussed. 01/06/23 -?-?-?-?-?-?-?-?-?-?-?-?- 24w 4d 184 lb 4 oz 132/70 Nega tive -?-?-?-?-?-?-?-?-?-?-?-?- Negative 135 0 -?-?-?-?-?-?-?-?--?-?-?-?- LC- pt c/o back pain and cramping. speculum exam demonstrated closed but excoriated ectropion cervix with copious discharge. consulted with ROCIO who also examined pt. genital swab, gc/ct and repeat pap collected today. +FM. 02/03/23 -?-?-?-?-?-?-?-?-?-?-?-?- 28w 4d 187 lb 4 oz 126/72 Nega tive -?-?-?-?-?-?-?-?-?-?-?-?- Negative 140 -?-?-?-?-?-?-?-?-?-?-?-?- LC- no vb/ctx/lo f. good fm. tdap/flu and larc completed today.no complaints. 02/16/23 -?-?-?-?-?-?-?-?-?-?-?-?- 30w 3d 188 lb 4 oz 124/82 Nega tive -?-?-?-?-?-?-?-?-?-?-?-?- Negative 153 -?-?-?-?-?-?-?-?-?-?-?-?- MH-No VB, LOF. G ood FM. No CTX 03/01/23 -?-?-?-?-?-?-?-?-?-?-?-?- 32w 2d 192 lb 2 oz 129/89 Trac e -?-?-?-?-?-?-?-?-?-?-?-?- Negative 154 31 Breech -?-?-?-?-?-?-?-?-?-?-?-?- JV- no lof, vagi nal bleeding, or dec fm. some minor cramping 03/13/23 -?-?-?-?-?-?-?-?-?-?-?-?- 34w 0d 193 lb 4 oz 129/83 Nega tive -?-?-?-?-?-?-?-?-?-?-?-?- Negative 150 34 -?-?-?-?-?-?-?-?-?-?-?-?- SM- no vb lof go od fm n oregular ctx, discussed ECV vs primary section. possibly cephalic on exma today, ordered formal scan 03/28/23 -?-?-?-?-?-?-?-?-?-?-?-?- 36w 1d 194 lb 8 oz 124/74 -?-?-?-?-?-?-?-?-?-?-?-?- -?-?-?-?-?-?-?-?-?-?-?-?- SM- no vb lof go od fm on US today still breech and aurea 3 cm, will proceed with LTCS. NST FHR Rate Baby A Baseline: 130 Variability:: Moderate Accelerations:: 15 x 15 Decelerations:: None NST Reactive:: Yes FHR Category:: Category I Uterine Activity:: irregular ROS Constitutional Constitutional: Reports systems reviewed and no addt'l complaints, except as documented Eyes Eyes: Denies change in vision ENT HEENT: Reports systems reviewed and no addt'l complaints, except as documented; Denies headache(s) Cardiovascular Cardiovascular: Reports systems reviewed and no addt'l complaints, except as documented; Denies chest pain or dyspnea Respiratory/Chest Respiratory/Chest: Reports systems reviewed and no addt'l complaints, except as documented Gastrointestinal Gastrointestinal: Reports systems reviewed and no addt'l complaints, except as documented; Denies abdominal pain Genitourinary Genitourinary: Reports systems reviewed and no addt'l complaints, except as documented, contractions Details: present (irregular) and movement Details: present; Denies dysuria or genital lesions Musculoskeletal Musculoskeletal: Reports systems reviewed and no addt'l complaints, except as documented Neurologic Neurologic: Reports systems reviewed and no addt'l complaints, except as documented Endocrine Endocrinology: Reports systems reviewed and no addt'l complaints, except as documented Vital Signs Vital Signs Vital Signs: 03/28/23 09:18 Temperature 98.1 F Temperature Source Temporal Pulse Rate 94 Respiratory Rate 18 Blood Pressure 124/74 H Blood Pressure Mean 90 Blood Pressure Source Monitor Blood Pressure Position Sitting Blood Pressure Location Right Arm Pulse Ox 98 Oxygen Delivery Method Room Air Weight Weight: 194 lb 8 oz Body Mass Index (BMI) 33.3 Physical Exam Const alert, oriented x3, no apparent distress and healthy appearing HEENT normocephalic and moist oral mucous membranes Head and Scalp: atraumatic Neck full ROM, no lymphadenopathy, supple and thyroid normal General: trachea midline Lymph Lymphatic: no lymphadenopathy noted Chest inspection of chest normal Resp normal respiratory effort Cardio regular rate GI normal to inspection, nondistended, normoactive bowel sounds, soft to palpation and non-tender Inspection: gravid Extremity normal to inspection General Extremity: Negative for edema Skin no rashes or lesions noted Neuro no focal motor deficits and deep tendon reflexes 2+ bilaterally Motor Exam: strength 5/5 throughout and clonus absent Psych mental status grossly normal Labs Labs Labs: Blood Type B POSITIVE Antibody Screen NEGATIVE Hct 35.7 % (37-47) L Hgb 11.5 g/dL (12.0-15.0) L Obstetrics Ultrasound Syphilis Total Ab Non-reactive Rubella IgG Antibody Reactive (Nonreactive) Hep Bs Antigen Non-Reactive (Nonreactive) Hepatitis C Antibody Non-Reactive (Nonreactive) Chlamydia DNA (JACQUELINE) Negative (Negative) N.gonorrhoeae DNA (JACQUELINE) Negative (Negative) HIV 1&2 Antibody Non-Reactive (Nonreactive) Glucose 1 Hr 50 gm 149 mg/dL (70-140) H Gest Glucose Tolerance MG/DL Assessment & Plan (1) Oligohydramnios in third trimester: COMMENT: proceed with delivery primary (2) Mild pre-eclampsia: COMMENT: 2x weekly NST, weekly labs. PEC precautions provided. cs at 37 weeks. (3) Breech presentation: COMMENT: CS for presentation. (4) Anxiety: (5) Hyperlipidemia: COMMENT: enskyce potentially contributing. wants to retest prior to restarting any control. (6) : QUALIFIERS: Weeks of gestation: 34 weeks Qualified Code(s): Z3A.34 - 34 weeks gestation of COMMENT: NIPT low risk, gender female and carrier, normal anatomy consistent ED (7) Supervision of high risk , antepartum: COMMENT: PRR girl; Citlaly. ED: 04/24/23 Eros (8) OCD (obsessive compulsive disorder): QUALIFIERS: Obsessive-compulsive disorder type: unspecified Qualified Code(s): F42.9 - Obsessive-compulsive disorder, unspecified COMMENT: Change from prozac to zoloft. Enc counseling PLAN: Plan After discussing the patient's diagnosis and treatment plan options, patient wishes to proceed with surgical management. I have discussed with the patient the risks, benefits, and alternatives of the procedure which include but are not limited to risks of anesthesia, bleeding, infection, possible damage to bowel, bladder, or surrounding vasculature which could lead to additional surgery to evaluate any complications. Patient agrees to procedure and wishes to proceed. ACOG/uptodate references given for additional information regarding procedure. 03/28/23 1010 <Electronically signed by Lily Duran MD> Cosigner Signature (if applicable): CC: Dr. Mykel Montoya MD; Dr. Lily Duran MD~ Signed [facility] Work Phone: 1(342) 934-881111-19-2023 History and physical note Author Araceli Rhodes [facility] March 26, 2023 3:13pm Note Date/Time March 26, 2023 12:59pm [facility] Medical Records Department [address] [place] [address] OB Triage Physician Note 03/26/23 1252 MR#: [id number] Acct: [id number] Name: DEYSI PRICE Rep #:[id number] : 1990 32 From: Araceli Rhodes [facility] PCP: Dr. Mykel Montoya MD Status:REG C LI Y Location: [place] [address] HPI - General HPI Narrative DEYSI PRICE, is a 32 F who presents at 35.6 for decreased movement since this AM. no vb/ctx/lof. since presenting to is now feeling more active movement. pt with BP elevations on admission to triage. denies headaches, visual changes/floater/flashing lights, ruq pain. breech presentation of ultrasound 03/24/2023 Maternal Data Information ED Calculator Estimated Delivery Date Method Current WG Current Estimate 04/24/23 LMP (Certain) 35w 6d PFSH PFSH Medical History Amenorrhea Asthma Vaginal discharge Home Medications cholecalciferol (vitamin D3) 50 mcg (2,000 unit) capsule 50 mcg PO DAILY 09/01/22 [History Last Taken 03/25/23 21:00] docosahexaenoic acid 200 mg capsule ( DHA) mg PO 09/01/22 [History Last Taken Unknown] famotidine 20 mg tablet (Pepcid) 20 mg PO DAILY #30 tabs 01/07/23 [Rx Last Taken 03/26/23 09:00] sertraline 50 mg tablet (Zoloft) 75 mg (1.5 x 50 mg) PO DAILY 90 days #135 tabs 03/01/23 [Rx Last Taken 03/25/23 21:00] Allergy/AdvReac Type Severity Reaction Status Date / Time caffeine Allergy Hives Verified 03/13/23 09:58 amoxicillin trihydrate AdvReac Unknown Verified 03/13/23 09:58 [From Augmentin] potassium clavulanate AdvReac Unknown Verified 03/13/23 09:58 [From Augmentin] Family History Mother Breast cancer, Onset Age: 60 Graves disease Hypertension Lung cancer Grandmother Breast cancer, Onset Age: 60 Congestive heart failure Grandfather Congestive heart failure Kidney disease Diabetes Surgical History History of tonsillectomy and adenoidectomy S/P tympanostomy tube placement Social History adopted: No household members: spouse current occupational status: employed current occupation: [employer] pets and animals: Yes ( does litter box) pets and animals: cat(s) history of recent travel: No sexually active: Yes Smoking Status: Never smoker second hand exposure: No alcohol intake: current details: social- not while substance use type: does not use caffeine: Yes Type: carbonated beverages Number of servings: 1 and tea Number of servings: 1 what type of physical activity do you participate in: walking frequency: 1-2 times per week seatbelt use: always do you feel safe at home: Yes additional social history: -Eros History 1 Elective abortions Hx Para Spontaneous abortions Hx # Term Pregnancies Ectopic pregnancies Hx # Pregnancies Multiple births # of living children Visit Details Expected Delivery Route/Plan Labor Preferences- CB/BF classes: [] labor support person: Eros -does not want to cut cord or see blood. She does not want anyone to be there but Eros!. labor intervention preferences: [] pain management options preferred: epidural cut cord/dad catch: dad says NO : no, needs to go back on cholesterol meds and can not breast feed. PP control planned: [] discussed possible routes of delivery and associated risks: [] special requests: [] Plans Covid status: [] Flu vaccine: obtained Tdap vaccine: obtained Rhogam: na LARC form signed: [] movement and labor precautions reviewed. Problem list reviewed and updated with the most current plan of care details and appropriate orders placed. Relevant counseling for the gestational age provided. Continue routine care and follow up unless otherwise noted in visit notes/problem list details OB Flowsheet Initial Weight: Not Recorded Date -?-?-?-?-?-?-?-?-?-?-?-?- EGA Weight BP Urine Prot -?-?-?-?-?-?-?-?-?-?-?-?- Glucose FHR FuHt Pres Dilation -?-?-?-?-?-?-?-?-?-?-?-?- Effaced St Visit Note 09/21/22 -?-?-?-?-?-?-?-?-?-?-?-?- 9w 2d 184 lb 2 oz 118/71 118/71 Negative -?-?-?-?-?-?-?-?-?-?-?-?- Negative 160 -?-?-?-?-?-?-?-?-?-?-?-?- LC spotting x1 y esterday after BM. +FHT today. bleeding precautions provided. LC- ultrasound with CRL c/w LMP. ED 04/21/2023. spotting x1 yesterday after BM. +FHT today. bleeding precautions provided. 10/04/22 -?-?-?-?-?-?-?-?-?-?-?-?- 11w 1d 181 lb 6 oz -?-?-?-?-?-?-?-?-?-?-?-?- 160 -?-?-?-?-?-?-?-?-?-?-?-?- kw- no cramping/ vb. desires NIPT-ordered today kw- no cramping/vb. 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 Br US to confirm FHT. 11/15/22 -?-?-?-?-?-?-?-?-?-?-?-?- 17w 1d 180 lb 8 oz 126/74 -?-?-?-?-?-?-?-?-?-?-?-?- 157 -?-?-?-?-?--?-?-?-?-?-?-?- MH-No VB but luciano e mucous discharge. worked in due to "very anxious" as she has been weaning down on prozac and wants to try zoloft. New Rx sent. Enc counseling. 12/16/22 -?-?-?-?-?-?-?-?-?-?-?-?- 21w 4d 183 lb 8 oz 112/81 Nega tive -?-?-?-?-?-?-?-?-?-?-?-?- Negative 140 -?-?-?-?-?-?-?-?-?-?-?-?- JV- normal anato my. no complaints. labor preferences discussed. 01/06/23 -?-?-?-?-?-?-?-?-?-?-?-?- 24w 4d 184 lb 4 oz 132/70 Nega tive -?-?-?-?-?-?-?-?-?-?-?-?- Negative 135 0 -?-?-?-?-?-?-?-?-?-?-?-?- LC- pt c/o back pain and cramping. speculum exam demonstrated closed but excoriated ectropion cervix with copious discharge. consulted with ROCIO who also examined pt. genital swab, gc/ct and repeat pap collected today. +FM. 02/03/23 -?-?-?-?-?-?-?-?-?-?-?-?- 28w 4d 187 lb 4 oz 126/72 Nega tive -?-?-?-?-?-?-?-?-?-?-?-?- Negative 140 -?-?-?-?-?-?-?-?-?-?-?-?- LC- no vb/ctx/lo f. good fm. tdap/flu and larc completed today.no complaints. 02/16/23 -?-?-?-?-?-?-?-?-?-?-?-?- 30w 3d 188 lb 4 oz 124/82 Nega tive -?-?-?-?-?-?-?-?-?-?-?-?- Negative 153 -?-?-?-?-?-?-?-?-?-?-?-?- MH-No VB, LOF. G ood FM. No CTX 03/01/23 -?-?-?-?-?-?-?-?-?-?-?-?- 32w 2d 192 lb 2 oz 129/89 Trac e -?-?-?-?-?-?-?-?-?-?-?-?- Negative 154 31 Breech -?-?-?-?-?-?-?-?-?-?-?-?- JV- no lof, vagi nal bleeding, or dec fm. some minor cramping 03/13/23 -?-?-?-?-?-?-?-?-?-?-?-?- 34w 0d 193 lb 4 oz 129/83 Nega tive -?-?-?-?-?-?-?-?-?-?-?-?- Negative 150 34 -?-?-?-?-?-?-?-?-?-?-?-?- SM- no vb lof go od fm n oregular ctx, discussed ECV vs primary sectio n. possibly cephalic on exma today, ordered formal scan Physical Exam Const alert, oriented x3 and no apparent distress Resp normal respiratory effort, normal air movement, no retractions and no use of accessory muscles Cardio regular rate and regular rhythm GI soft to palpation and non-tender Inspection: Palpation: soft Rectal Exam: deferred no CVA tenderness and external exam normal Bimanual Exam - Vag & Uterus: uterus non-tender and other gravid uterus, normal for gestational age OB / External & Speculum: Negative for herpetic lesions Manual OB Exam: estimated gestational size appropriate Amniotic Fluid: no amniotic fluid noted Extremity normal to inspection and full ROM Neuro Motor Exam: strength 5/5 throughout and muscle tone normal throughout Deep Tendon Reflexes: Rt Patellar (L4): 2+ and Lt Patellar (L4): 2+ NST FHR Rate Baby A Baseline: 140 Variability:: Moderate Accelerations:: 15 x 15 Decelerations:: None NST Reactive:: Yes FHR Category:: Category I Uterine Activity:: no uterine ctx Assessment & Plan (1) Elevated BP without diagnosis of hypertension: COMMENT: PEC labs sent. BP 140s/80-90s, denies ruiz/visual changes/ruq pain P:C 370 PLAN: c/s at 37 weeks. reviewed and discussed with Altaf Almaguer agrees with outpt nst/aurea and c/s at 37 weeks (2) Breech presentation: COMMENT: CS for presentation. (3) Mild pre-eclampsia: COMMENT: 2x weekly NST, weekly labs. PEC precautions provided. cs at 37 weeks. PLAN: Plan Patient presents for triage evaluation secondary to decreased movement, elevated BPs without s/sx of PEC. labs sent for rule out, resulted with elevated P:C ratio. pt remains breech presentation. FHT: Moderate variability reactive no decelerations category I tracing [place]: no Contractions Assessment and plan: Reactive NST, reassuring maternal and status patient discharged to home to follow-up in office on monday . See problem list details for additional plan information. Charges/Coding Procedures Urinary/Genital 52xxx-59xxx: 76033-32 non-stress test Interp Multi Select Codes Visit Charges Office Visit/Consults: 87453 OV L3 Est Urinary/Genital Urinary/Genital CPT Codes: 45210-63 non-stress test Inter 03/26/23 1513 <Electronically signed by Araceli dela cruz CNM> Date _ Araceli Rhodes CNM Cosigner Signature (if applicable): Date CC: VALENTINA Rhodes; Dr. Mykel Montoya MD ~ Signed [facility] Work Phone: 1(565) 953-809909-01-2023 NotePap Smear Specimen AdequacySeptember 2022 5:41pmComment.Satisfactory for evaluation. No endocervical component is identified.Areas of partially obscuring blood are present.[facility] INTERFACED A#[id number].W. [facility] Hospital on above:Satisfactory for evaluation. No endocervical component is identified.Areas of partially obscuring blood are present.01-06-2023 NotePap Smear Specimen AdequacySeptember 2022 4:41pmComment.Satisfactory for evaluation. No endocervical component is identified.Areas of partially obscuring blood are present.[facility] INTERFACED A#[id number] State East HospitalCombronson battle [facility] hospital on above:Satisfactory for evaluation. No endocervical component is identified.Areas of partially obscuring blood are present.01-06-2023 NotePap Smear Specimen AdequacySeptember 2022 4:41pmComment.Satisfactory for evaluation. No endocervical component is identified.Areas of partially obscuring blood are present.[facility] INTER[facility]ACED A#[id number].W. [facility] Hospital on above:Satisfactory for evaluation. No endocervical component is identified.Areas of partially obscuring blood are present.01-06-2023 NotePap Smear Specimen AdequacySeptember 2022 4:41pmComment.Satisfactory for evaluation. No endocervical component is identified.Areas of partially obscuring blood are present.[facility] INTERFACED A#[id number] HealthComment on above:Satisfactory for evaluation. No endocervical component is identified.Areas of partially obscuring blood are present.06-28-2022 History of Present illness Narrative* Dejuan Cannon PA-C - 06/28/2022 8:14 PM EST Telemedicine Visit - Distance Health Virtual Visit Note Patient seen on [employer] Online platform. Location of patient: [place] History of Present Illness Deysi Price is a 32 year old year [...] 2 Puffs as instructed every 4 hours asneeded for Wheezing/Shortness of Breath. (Patient not taking: [...] water gargles, throat lozenges and/or OTC throat sprayas needed and nasal saline gtts and suction [...] with cough and to thin out mucus -[email or web address]/. This link shares information about when antibiotics may help and when they may not. - Red flags discussed for need for in person care - All questions answered Dejuan Cannon PA-C If you let us know who your primary care provider is, we will send them a notification of today s visit through our electronic medical records system. Since not all providers have access to our notifications, we strongly encourage you to share the following record of today s visit with your primarycare provider at your next visit. This will help in providing you the best care. If you do not have an established Primary Care physician and would like to continue care with a [facility] Virtual Primary Care physician, please ask your provider to place a "Establish PrimaryCare" order. Use [employer] to manage your care, wherever you are, 28/11, on your mobile device or computer. [employer] connects you to [employer] so you can access all your health information in one place and also schedule and request virtual appointments with primary care providers. documented in this encounterUniversity Hospitals Lake [facility] Center02-19-2023 History of Present illness Narrative* Yoko Jacob APRN.CNP - 06/26/2022 3:16 PM EST Pt. Left while reviewing the chart. Fee waived. documented in this encounterUniversity Hospitals Lake [facility] Center02-06-2023 NotePap Smear Specimen AdequacyFebr2022 4:30pmComment.Satisfactory for evaluation. Endocervical and/or squamous metaplasticcells (endocervical component)are present.[facility] INTER[facility]ACED A#[id number].W. [facility] Hospital on above: Satisfactory for evaluation. Endocervical and/or squamous metaplasticcells (endocervical component)are present.06-13-2022 NotePap Smear Specimen Adequacy February 2022 5:30pmComment.Satisfactory for evaluation. Endocervical and/or squamous metaplasticcells (endocervical component)are present.[facility] INTERFACED A#[id number].W. [facility] Hospital on above:Satisfactory for evaluation. Endocervical and/or squamous metaplasticcells (endocervical component)are present.06-13-2022 NotePap Smear Specimen AdequacyFebruary 2022 5:30pmComment.Satisfactory for evaluation. Endocervical and/or squamous metaplasticcells (endocervical component)are present.[facility] INTERFACED A#[id number] State East HospitalCombronson [facility] on above:Satisfactory for evaluation. Endocervical and/or squamous metaplasticcells (endocervical component)are present.06-13-2022 NotePap Smear Specimen AdequacyFebruary 2022 5:30pmComment.Satisfactory for evaluation. Endocervical and/or squamous metaplasticcells (endocervical component)are present.[facility] INTERFACED A#[id number] State East HospitalCombronson [facility] on above:Satisfactory for evaluation. Endocervical and/or squamous metaplasticcells (endocervical component)are present.06-13-2022 NotePap Smear Specimen AdequacyFebruary 2022 5:30pmComment.Satisfactory for evaluation. Endocervical and/or squamous metaplasticcells (endocervical component)are present.[facility] INTERFACED A#[id number] State East HospitalCombronson [facility] hospital on above:Satisfactory for evaluation. Endocervical and/or squamous metaplasticcells (endocervical component)are present.09-10-2021 History of Present illness Narrative* Dagmar Fields APRN.CNP - 09/10/2021 2:50 PM EDT Could not connect on [employer] Platform. Visit cancelled. Dagmar Fields DNP, NILES-ALANA documented in this encounterUniversity Hospitals Lake [facility] Medical Center05-06-2022 Instructions* Patient Instructions* Estelle Vela APRN.CNP - 09/10/2021 11:44 AM [...] treated. A physician, nurse practitioner or physician itinerant teacher assistant may treat with a short course [...] women if symptoms resolve. documented in this encounterUniversity Hospitals Lake [facility] Center05-06-2022 History of Present illness Narrative* Estelle Vela APRN.CNP - 09/10/2021 11:40 AM EDT Telemedicine Visit - Distance Health Virtual Visit Note Patient seen on [facility] [facility] Online platform. Location of [place]: [place] History of Present Illness Deysi Price is a 31 year old old [...] 2 Puffs as instructed every 4 hours asneeded for Wheezing/Shortness of Breath. (Patient not taking: [...] record of today s visit with your primarycare provider at your next visit. This will help in providing you the best care. [facility]* Diagnosis Acute cystitis without hematuria- Primary Acute cystitis documented in [facility] encounter [facility]* Diagnosis APPOINTMENT CANCELLED- Primary documented in this encounter [facility] noteNo assessment information availableWSumma Health Work Phone: Evaluation note* Diagnosis Treatment not available- Primary Procedure not carried out for other reasons documented in this encounter [facility] note* Diagnosis Acute sinusitis, recurrence not specified, unspecified location- Primary documented in this encounter [facility] note* Diagnosis Onset Date Resolution Status Threatened acute [facility] Work Phone: Evaluation note* Diagnosis Onset Date Resolution Status Threatened acute Threatened acute [facility] Work Phone: Evaluation note* Diagnosis Onset Date Resolution Status Threatened acute Threatened acute Anxiety acute Dysuria acute Hyperlipidemia acute acute Supervision of high risk , antepartum acute Threatened acute Anxiety acute Dysuria acute Hyperlipidemia acute OCD (obsessive compulsive disorder) acute acute Supervision of high risk , antepartum acute Threatened acute Anxiety acute acute Supervision of high risk , antepartum acute Anxiety acute OCD (obsessive compulsive disorder) acute acute Supervision of high risk , antepartum acute [facility] Work Phone: Evaluation note* Diagnosis Onset Date Resolution Status Anxiety acute Dysuria acute Hyperlipidemia acute OCD (obsessive compulsive disorder) acute acute Supervision of high risk , antepartum acute Threatened acute Anxiety acute acute Supervision of high risk , antepartum acute Anxiety acute OCD (obsessive compulsive disorder) acute acute Supervision of high risk , antepartum acute Anxiety acute Dysuria acute Hyperlipidemia acute OCD (obsessive compulsive disorder) acute acute Supervision of high risk , antepartum acute Threatened acute Anxiety acute Dysuria acute Hyperlipidemia acute OCD (obsessive compulsive disorder) acute acute Supervision of high risk , antepartum acute Threatened acute [facility] Work Phone: Evaluation note* Diagnosis Onset Date Resolution Status Anxiety acute Hyperlipidemia acute OCD (obsessive compulsive disorder) acute acute Supervision of high risk , antepartum acute Dysuria resolved Anxiety acute Hyperlipidemia acute OCD (obsessive compulsive disorder) acute acute Supervision of high risk , antepartum acute Dysuria resolved Anxiety acute OCD (obsessive compulsive disorder) acute acute Supervision of high risk , antepartum acute Anxiety acute OCD (obsessive compulsive disorder) acute acute Supervision of high risk , antepartum acute Anxiety acute Hyperlipidemia acute OCD (obsessive compulsive disorder) acute acute Supervision of high risk , antepartum acute Anxiety acute Hyperlipidemia acute OCD (obsessive compulsive disorder) acute acute Supervision of high risk , antepartum acute Breech presentation acute Elevated BP without diagnosis of hypertension acute Mild pre-eclampsia acute [facility] Work Phone: Evaluation note* Diagnosis Onset Date Resolution Status Hyperlipidemia acute OCD (obsessive compulsive disorder) acute Anxiety resolved Dysuria resolved resolved Supervision of high risk , antepartum resolved Hyperlipidemia acute OCD (obsessive compulsive disorder) acute Anxiety resolved Dysuria resolved resolved Supervision of high risk , antepartum resolved OCD (obsessive compulsive disorder) acute Anxiety resolved resolved Supervision of high risk , antepartum resolved OCD (obsessive compulsive disorder) acute Anxiety resolved resolved Supervision of high risk , antepartum resolved Hyperlipidemia acute OCD (obsessive compulsive disorder) acute Anxiety resolved resolved Supervision of high risk , antepartum resolved Hyperlipidemia acute OCD (obsessive compulsive disorder) acute Anxiety resolved resolved Supervision of high risk , antepartum resolved Mild pre-eclampsia acute Breech presentation resolved Elevated BP without diagnosis of hypertension resolved delivery delivered acute Hyperlipidemia acute Mild pre-eclampsia acute OCD (obsessive compulsive disorder) acute Anxiety resolved Breech presentation resolved Oligohydramnios in third trimester resolved resolved Supervision of high risk , antepartum resolved [facility] Work Phone: Evaluation note* Diagnosis Hand, foot and mouth disease Hand, foot, and mouth disease documented in this encounter [facility] for referral (narrative)No reason for referral information availableWSumma Health Work Phone: Summary Purpose Family History No Family History Records Found Relationship Condition Age at Onset Recorded Date/T yadi Not Specified Graves' disease Unknown Malignant neoplasm of colon Unknown Cardiac disease Unknown Malignant neoplasm of breast Unknown Relationship Condition Age at Onset Recorded Date/T yadi mother Malignant neoplasm of breast Unknown Graves' disease Unknown Hypertension Unknown Malignant neoplasm of lung Unknown grandmother Malignant neoplasm of breast Unknown Congestive heart failure Unknown grandfather Congestive heart failure Unknown Relationship Condition Age at Onset Recorded Date/T yadi mother Malignant neoplasm of breast 60 Graves' disease Unknown Hypertension Unknown Malignant neoplasm of lung Unknown grandmother Malignant neoplasm of breast 60 Congestive heart failure Unknown grandfather Congestive heart failure Unknown Kidney disorder Unknown Diabetes mellitus Unknown Advance Directives No Advanced Directives Records Found Advance Directive Response Recorded Date/ Time Living Will No April 21, 9:38am Power of Exhibit Preparator No April 21, 2017 9:38am Advance Directive Response Recorded Date/ Time Living Will No April 21, 017 8:38am Power of Exhibit Preparator No April 21, 2017 8:38am Advance Directive Response Recorded Date/ Time Living Will No November 15, 2022 9:45am Power of Exhibit Preparator No November 15 3 9:45am Advance Directive Response Recorded Date/ Time Living Will No November 15, 2022 8:45am Power of Exhibit Preparator No November 15 3 8:45am Advance Directive Response Recorded Date/ Time Living Will No March 28, 023 9:33am Power of Exhibit Preparator No March 28, 2023 9:33am Chief Complaint and Reason for Visit Chief Complaint LEFT ANKLE PAIN Chief Complaint EORDER E ORDER E ORDERS E ORDER HCG not rising appropriately Reason for Visit Threatened Chief Complaint EORDER E ORDER E ORDERS E ORDER HCG not rising appropriately rescan per JV VIABILITY Reason for Visit Threatened Threatened Chief Complaint EORDER E ORDER E ORDERS E ORDER HCG not rising appropriately rescan per JV VIABILITY spotting 11 wk ob E ORDER + BOX 14 WK OB OB, cramping and discharge Reason for Visit Threatened Threatened Anxiety Dysuria Hyperlipidemia Supervision of high risk , antepartum Threatened Anxiety Dysuria Hyperlipidemia OCD (obsessive compulsive disorder) Supervision of high risk , antepartum Threatened Anxiety Supervision of high risk , antepartum Anxiety OCD (obsessive compulsive disorder) Supervision of high risk , antepartum Chief Complaint 11 wk ob E ORDER + BOX 14 WK OB OB, cramping and discharge 21 WK OB cramping/OB check PAP GLUCOSE TEST 1 HR DRAW AT 10:50 AM Reason for Visit Anxiety Dysuria Hyperlipidemia OCD (obsessive compulsive disorder) Supervision of high risk , antepartum Threatened Anxiety Supervision of high risk , antepartum Anxiety OCD (obsessive compulsive disorder) Supervision of high risk , antepartum Anxiety Dysuria Hyperlipidemia OCD (obsessive compulsive disorder) Supervision of high risk , antepartum Threatened Anxiety Dysuria Hyperlipidemia OCD (obsessive compulsive disorder) Supervision of high risk , antepartum Threatened Chief Complaint 21 WK OB cramping/OB check PAP GLUCOSE TEST 1 HR DRAW AT 10:50 AM Z13.1 28 WK OB 30 WK OB, pt running 5 mins late 32 WK OB 34 WK OB BREECHED NST NST Reason for Visit Anxiety Hyperlipidemia OCD (obsessive compulsive disorder) Supervision of high risk , antepartum Dysuria Anxiety Hyperlipidemia OCD (obsessive compulsive disorder) Supervision of high risk , antepartum Dysuria Anxiety OCD (obsessive compulsive disorder) Supervision of high risk , antepartum Anxiety OCD (obsessive compulsive disorder) Supervision of high risk , antepartum Anxiety Hyperlipidemia OCD (obsessive compulsive disorder) Supervision of high risk , antepartum Anxiety Hyperlipidemia OCD (obsessive compulsive disorder) Supervision of high risk , antepartum Breech presentation Elevated BP without diagnosis of hypertension Mild pre-eclampsia Chief Complaint 21 WK OB cramping/OB check PAP GLUCOSE TEST 1 HR DRAW AT 10:50 AM Z13.1 28 WK OB 30 WK OB, pt running 5 mins late 32 WK OB 34 WK OB BREECHED NST NST Mild to moderate pre-eclampsia, unspecified trimes PRIMARY C SECTION PRIMARY C SECTION PRIMARY C SECTION PRIMARY C SECTION Reason for Visit Hyperlipidemia OCD (obsessive compulsive disorder) Anxiety Dysuria Supervision of high risk , antepartum Hyperlipidemia OCD (obsessive compulsive disorder) Anxiety Dysuria Supervision of high risk , antepartum OCD (obsessive compulsive disorder) Anxiety Supervision of high risk , antepartum OCD (obsessive compulsive disorder) Anxiety Supervision of high risk , antepartum Hyperlipidemia OCD (obsessive compulsive disorder) Anxiety Supervision of high risk , antepartum Hyperlipidemia OCD (obsessive compulsive disorder) Anxiety Supervision of high risk , antepartum Mild pre-eclampsia Breech presentation Elevated BP without diagnosis of hypertension delivery delivered Hyperlipidemia Mild pre-eclampsia OCD (obsessive compulsive disorder) Anxiety Breech presentation Oligohydramnios in third trimester Supervision of high risk , antepartum Chief Complaint Admit Date 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, 2024 2:28 pm L FOOT INJURY September 27, 2024 12:12 pm foot injury- LEFT September 27, 2024 12:39 pm Reason for Visit Admit Date Contraception management August 14, 2024 2:28pm OCD (obsessive compulsive disorder) Apri l 2024 2:28pm Encounter for routine gynecological exam ination August 14, 2024 2:28pm Strain of left foot September 27, 2024 12:12 pm Additional Source Comments INFORMATION SOURCE (unrecogn ized section and content) DATE CREATED AUTHOR 11/01/2017 [facility] DATE CREATED AUTHOR AUTHOR'S ORGANIZ ATION 12/09/2022 [facility] DATE CREATED AUTHOR AUTHOR'S ORGANIZ ATION 03/09/2025 [facility] DATE CREATED AUTHOR AUTHOR'S ORGANIZ ATION 03/12/2025 [facility] Source Comments (unrecognize d section and content) In the event this informatio n is protected by the Federal Confidentiality of Alcohol and Drug Abuse Patient Records regulations: The Federal rules restrict any use of the information to criminally investigate or prosecute any alcohol or drug abuse patient.[facility] the event this information is protected by the Federal Confidentiality of Alcohol and Drug Abuse Patient Records regulations: The Federal rules restrict any use of the information to criminally investigate or prosecute any alcohol or drug abuse patient.[facility] Center[facility] the event this information is protected by the Federal Confidentiality of Alcohol and Drug Abuse Patient Records regulations: The Federal rules restrict any use of the information to criminally investigate or prosecute any alcohol or drug abuse patient.[facility] Center[facility] the event this information is protected by the Federal Confidentiality of Alcohol and Drug Abuse Patient Records regulations: The Federal rules restrict any use of the information to criminally investigate or prosecute any alcohol or drug abuse patient.[facility] CenterIn the event this information is protected by the Federal Confidentiality of Alcohol and Drug Abuse Patient Records regulations: The Federal rules restrict any use of the information to criminally investigate or prosecute any alcohol or drug abuse patient.[facility] Reason for Visit (unrecogniz ed section and content) Reason Comments Dysuria Reason Comments Appointment Cancelled Reason Comments Sinusitis Reason Comments Sinus Problem Reason Comments Derm Problem Care Teams (unrecognized sec tion and content) Heating And Ventilation Engineer Relationship Specialty Start Date End Date Mykel Montoya MD [address] [facility] [address] [place] [address] PCP - General Family Practice 11/06/18 Heating And Ventilation Engineer Relationship Specialty Start Date End Date Mykel Montoya MD [address] [facility] [address] [place] [address] PCP - General Family Practice 11/06/18 Team Status: Active Member Role Status Dates Dr. Mykel Montoya MD Family Provider Active Dr. Mykel Montoya MD Primary Care Provider Active Team Status: Inactive Member Role Status Dates Dr. Mykel Montoya MD Primary Care Provider Active Christina Knott DO Attending Provider, Referring Pr ovidbrenda Active Team Status: Inactive Member Role Status Dates Dr. Mykel Montoya MD Primary Care Provider, Attending Provider Active Team Status: Inactive Member Role Status Dates Dr. Mykel Montoya MD Primary Care Provider Active Nelly Lopez DIETARY INTERNSHIP, DIETARY INTERNSHIP-C Attending Provider Active Heating And Ventilation Engineer Relationship Specialty Start Date End Date Mykel Montoya MD [address] [place] [address] [address] [place] [address] PCP - General Family Medicine 11/06/18 Heating And Ventilation Engineer Relationship Specialty Start Date End Date Mykel Montoya MD [address] [place] [address] [address] [place] [address] PCP - General Family Medicine 11/06/18 Team Status: Inactive Member Role Status Dates Dr. Mykel Montoya MD Primary Care Provider, Referring Provider Active Dr. Cassia Brown DO Attending Provider Activ e Team Status: Inactive Member Role Status Dates Dr. Mykel Montoya MD Primary Care Provider Active Dr. Cassia Brown DO Attending Provider, Refe rring Provider Active Team Status: Active Member Role Status Dates Dr. Mykel Montoya MD Primary Care Provider Active Dr. Lily Duran MD Attending Provider, Referr ing Provider Active Team Status: Inactive Member Role Status Dates Dr. Mykel Montoya MD Primary Care Provider Active Dr. Lily Duran MD Attending Provider, Referr ing Provider Active Team Status: Inactive Member Role Status Dates Dr. Mykel Montoya MD Primary Care Provider, Referring Provider Active Ayana Moreno CNM Attending Provider Active Team Status: Inactive Member Role Status Dates Dr. Mykel Montoya MD Primary Care Provider, Referring Provider Active Araceli Rhodes CNM Attending Provider Active Team Status: Inactive Member Role Status Dates Dr. Mykel Montoya MD Primary Care Provider, Referring Provider Active Tracy Bowman DIETARY INTERNSHIP, DIETARY INTERNSHIP-C Attending Provider Active Team Status: Inactive Member Role Status Dates Dr. Mykel Montoya MD Primary Care Provider Active Ayana Moreno CNM Attending Provider Active Team Status: Active Member Role Status Dates Dr. Mykel Montoya MD Family Provider Active Team Status: Inactive Member Role Status Dates Dr. Mykel Montoya MD Referring Provider Active Dr. Cassia Brown DO Attending Provider Activ e Team Status: Inactive Member Role Status Araceli Rhodes CNM Attending Provider Active Team Status: Inactive Member Role Status Dates Arcaeli Rhodes CNM Attending Provider, Referring Pr ovider Active Team Status: Inactive Member Role Status Dates Dr. Cassia Brown DO Attending Provider, Refe rring Provider Active Team Status: Inactive Member Role Status Araceli Rhodes CNM Attending Provider Active Dr. Mykel Montoya MD Primary Care Provider, Referring Provider Active Team Status: Inactive Member Role Status Dates Dr. Mykel Montoya MD Referring Provider Active Tracy Bowman DIETARY INTERNSHIP DIETARY INTERNSHIP-C Attending Provider Active Team Status: Inactive Member Role Status Dates Dr. Mykel Montoya MD Referring Provider Active Dr. Lily Duran MD Attending Provider Active Team Status: Active Member Role Status Dates Dr. Mykel Montoya MD Primary Care Provider Active Araceli Rhodes CNM Attending Provider, Other Provid er Active Team Status: Inactive Member Role Status Dates Dr. Mykel Montoya MD Primary Care Provider Active Araceli Rhodes CNM Attending Provider Active Team Status: Inactive Member Role Status Dates Tracy Bowman DIETARY INTERNSHIP, DIETARY INTERNSHIP-C Attending Provider, Referring Provider Active Dr. Mykel Montoya MD Primary Care Provider Active Team Status: Active Member Role Status Dates Dr. Lily Duran MD Attending Provider, Referr ing Provider Active Dr. Mykel Montoya MD Primary Care Provider Active Team Status: Active Member Role Status Dates Dr. Mykel Montoya MD Primary Care Provider Active Dr. Lily Duran MD Admit Provid er, Attending Provider, Other Provider Active Team Status: Active Member Role Status Dates Dr. Mykel Montoya MD Primary Care Provider Active Dr. Lily Duran MD Admit Provider, Other Prov ider Active Tracy Bowman DIETARY INTERNSHIP, DIETARY INTERNSHIP-C Attending Provider Active Team Status: Active Member Role Status Dates Dr. Mykel Montoya MD Primary Care Provider Active Araceli Rhodes CNM Attending Provider, Referring Pr ovider Active Team Status: Inactive Member Role Status Dates Dr. Mykel Montoya MD Primary Care Provider Active Dr. Lily Duran MD Admit Provider, Attending Provider Active Team Status: Inactive Member Role Status Dates Dr. Lily Duran MD Attending Provider, Referr ing Provider Active Dr. Mykel Montoya MD Primary Care Provider Active Team Status: Inactive Member Role Status Dates Dr. Mykel Montoya MD Primary Care Provider Active Araceli Rhodes CNM Attending Provider, Referring Pr ovider Active Team Status: Inactive Member Role Status Dates Dr. Mykel Montoya MD Primary Care Provider Active Start: August 14, 2024 End: August 14, 2024 Dr. Mykel Montoya MD Referring Provider Active Start: August 14, 2024 End: August 14, 2024 FÉLIX Traylor Attending Provider Active Start: August 14, 2024 End: August 14, 2024 Team Status: Inactive Member Role Status Dates Dr. Mykel Montoya MD Primary Care Provider Active Start: September 27, 2024 End: September 27, 2024 Dr. Mykel Montoya MD Referring Provider Active Start: September 27, 2024 End: September 27, 2024 Jaxon JUAREZ PA Attending Provider Active Sta rt: September 27, 2024 End: September 27, 2024 Team Status: Inactive Member Role Status Dates Dr. Mykel Montoya MD Primary Care Provider Active Start: September 27, 2024 End: September 27, 2024 Jaxon JUAREZ PA Attending Provider Active Sta rt: September 27, 2024 End: September 27, 2024 LARRY Ludwig Referring Provider Active Sta rt: September 27, 2024 End: September 27, 2024 Heating And Ventilation Engineer Relationship Specialty Start Date End Date Mykel Montoya MD [address] [address] PCP - General Family Medicine 11/06/18 Goals (unrecognized section and content) Goals may be documented in a n alternate sectionGoals may be documented in an alternate sectionGoals may be documented in an alternate sectionGoals may be documented in an alternate sectionGoals may be documented in an alternate sectionGoals may be documented in an alternate sectionGoals may be documented in an alternate sectionGoals may be documented in an alternate sectionGoals may be documented in an alternate sectionGoals may be documented in an alternate sectionGoals may be documented in an alternate section FOR RECORDS PERTAINING TO PATIENTS WHO ARE [...] BE BASED ON THE PRIMARY CLINICAL RECORDS. [employer] provides no warranty or guarantee of the accuracy or completeness of information in this document.
[2025-04-26 10:34] LABS: AST(SGOT) 22 U/L (<=31); Alanine Aminotransfer ALT/SGPT 28 U/L (<=34); Albumin, Serum 3.9 g/dL (3.5-5.0); Alkaline Phosphatase 98 U/L (35-104); Anion Gap 12 (5-15); BUN 10 mg/dL (4-19); BUN/Creat Ratio 13.9 RATIO (10-20); Calcium,Total 8.9 mg/dL (7.6-11.0); Carbon Dioxide 20.7 mmol/L (21.0-32.0); Chloride 106 mmol/L (98-108); Cholesterol 173 mg/dL (<=200); Globulin 3.6 g/dL (2.2-4.2); Glucose 83 mg/dL (70-99); Low Density Lipoprotein Calc. 105 mg/dL; Potassium 3.9 mmol/L (3.3-5.1); Triglycerides 124 mg/dL; Very Low Density Lipoprotein 25 mg/dL (5-40); cholesterol:hdl ratio screen 3.81
== END | disposition home or self-care (01) ==
LOC: LAB 09:34
PROVIDERS: PCP Family Medicine; Referring Provider Family Medicine; Visit Provider Family Medicine
DX: E78.5 Hyperlipidemia, unspecified (principal); Z83.49 Family history of other endocrine, nutritional and metabolic diseases
CPT/HCPCS: 36415; 80053; 80061; 84443